=== PATIENT | female | born 1995 | race Caucasian/White ===

== ENCOUNTER 2020-06-17 13:40 | Emergency (ER) | payer SELFPAY ==
--- OUTSIDE RECORDS SUMMARY | 2020-06-17 13:43 | XMS REPORT | Clinical Summary ---
:1995 Author Organization [facility] Address [address] [place] [address] Care Team Providers Name Role Phone MD Anyi Primary Care Provider Allergies Active Allergy Reactions Severity Noted Date Comments Escitalopram Oxalate 12/10/2016 Medications Medication Sig Dispensed Refills Start Date End Date Status QUEtiapine Take 25 mg by 0 11/28/2016 Disc ontinued (SEROquel) 25 MG mouth 2 (two) 0 tablet times a day. sertraline (ZOLOFT) Take 100 mg by 0 11/28/2016 Discontinued 100 MG tablet mouth every 0 evening. ALPRAZolam (XANAX) 1 Take 1 mg by 0 11/16/201607/21 Discontinued MG tablet mouth 2 (two) 0 times a day as needed. SYMBICORT 160-4.5 Inhale 1 puff 0 12/05/2016 02 Discontinued mcg/actuation every morning. 0 inhaler PROAIR HFA 90 Inhale 2 puffs 0 10/24/2016 Discontinued mcg/actuation every 4 (four) 0 inhaler hours as needed. hydrOXYzine (ATARAX) Take 10 mg by 0 11/28/2016 Discontinued 10 MG tablet mouth every 0 morning. traZODone (DESYREL) Take 50 mg by 0 10/29/201607/21 Discontinued 50 MG tablet mouth every 0 evening. ondansetron ODT Take 1 tablet 20 tablet 0 07/22/2019 (ZOFRAN ODT) 8 MG (8 mg total) 0 disintegrating by mouth every tablet 8 (eight) hours as needed for nausea or vomiting for up to 7 days. Active Problems Problem Noted Date Cellulitis of hand 12/10/2016 Encounters Date Type Specialty Care Team Description 04/05/2020 - Emergency Emergency Medicine Steven Lake Suicidal ideation (Primary Dx); 04/08/2020 MD Silverio Methamphetamine abuse (HCC) 07/22/2019 Emergency Emergency Medicine Jorge A Cardenas Nausea an d vomiting, MD Nasir intractability of vomiting not sp ecified, unspecified vom iting type (Primary Dx) after 06/17/2019 Immunizations Name Administration Dates Next Due Tdap 12/10/2016 Surgical History Surgery Date Site/Laterality Comments RHINOPLASTY Medical History Medical History Date Comments Asthma Major depression Social History Tobacco Use Types Packs/Day Years Used Date Never Smoker Smokeless Tobacco: Never Used Tobacco Cessation: Ready to Quit: No; Co unseling Given: Yes Alcohol Use Drinks/Week oz/Week Comments Yes once a month Sex Assigned at Date Recorded Not on file Job Start Date Occupation Industry Not on file Not on file Not on file Last Filed Vital Signs Vital Sign Reading Time Taken Comments Blood Pressure 106/68 04/08/2020 1:28 PM [facility] Pulse 114 04/08/2020 1:28 PM [facility] Temperature 36 C (96.8 F) 04/08/2020 1:28 PM [facility] Respiratory Rate 20 04/08/2020 1:28 PM [facility] Oxygen Saturation 100% 04/08/2020 1:28 PM [facility] Inhaled Oxygen Concentration - - Weight 65.8 kg (145 lb) 07/22/2019 8:29 AM [facility] Height 172.7 cm (5' 8") 07/22/2019 8:29 AM [facility] Body Mass Index 22.05 07/22/2019 8:29 AM [facility] Plan of Treatment Health Maintenance Due Date Last Done Comments COVID-19 VACCINE (1 of 2) 2009 CERVICAL CANCER SCREENING 2014 INFLUENZA VACCINE 12/19/2019 Procedures Procedure Name Priority Date/Time Associated Comments Diagnosis COVID-19 QUALITATIVE STAT 04/05/2020 9:41 Res ults for this PCR PM [facility] procedure are i n the results section. URINE CULTURE STAT 04/05/2020 8:59 Results fo r this PM [facility] procedure are i n the results section. URINE DRUGS OF ABUSE STAT 04/05/2020 8:42 Res ults for this SCREEN PM [facility] procedure are i n the results section. HCG QUALITATIVE, URINE STAT 04/05/2020 8:42 R esults for this SCREEN PM [facility] procedure are i n the results section. URINALYSIS SCREEN AND STAT 04/05/2020 8:42 Re sults for this MICROSCOPY, WITH REFLEX PM [facility] proc edure are in TO CULTURE the results section. BILIRUBIN DIRECT STAT 04/05/2020 7:23 Results for this PM [facility] procedure are i n the results section. ESTIMATED GFR STAT 04/05/2020 7:23 Results fo r this PM [facility] procedure are i n the results section. SALICYLATE LEVEL STAT 04/05/2020 7:23 Results for this PM [facility] procedure are i n the results section. ACETAMINOPHEN LEVEL STAT 04/05/2020 7:23 Resu lts for this PM [facility] procedure are i n the results section. ALCOHOL LEVEL, BLOOD STAT 04/05/2020 7:23 Res ults for this PM [facility] procedure are i n the results section. T4, FREE STAT 04/05/2020 7:23 Results for this PM [facility] procedure are i n the results section. THYROID STIMULATING STAT 04/05/2020 7:23 Resu lts for this HORMONE PM [facility] procedure are i n the results section. CREATINE KINASE, TOTAL STAT 04/05/2020 7:23 R esults for this (CPK) PM [facility] procedure are i n the results section. COMPREHENSIVE METABOLIC STAT 04/05/2020 7:23 Results for this PANEL PM [facility] procedure are i n the results section. HC COMPLETE BLD COUNT STAT 04/05/2020 7:23 Re sults for this W/AUTO DIFF PM [facility] procedure are i n the results section. ECG ED PRELIMINARY Routine 04/05/2020 7:22 Resul ts for this INTERPRETATION PM [facility] procedure are in the results section. ECG 12-LEAD STAT 04/05/2020 7:12 Results for this PM [facility] procedure are i n the results section. ESTIMATED GFR STAT 07/22/2019 8:37 Results fo r this AM [facility] procedure are i n the results section. HCG QUALITATIVE, URINE STAT 07/22/2019 8:37 R esults for this SCREEN AM [facility] procedure are i n the results section. URINE DRUGS OF ABUSE STAT 07/22/2019 8:37 Res ults for this SCREEN AM [facility] procedure are i n the results section. URINALYSIS SCREEN AND STAT 07/22/2019 8:37 Re sults for this MICROSCOPY, WITH REFLEX AM [facility] proc edure are in TO CULTURE the results section. LIPASE LEVEL STAT 07/22/2019 8:37 Results for this AM [facility] procedure are i n the results section. COMPREHENSIVE METABOLIC STAT 07/22/2019 8:37 Results for this PANEL AM [facility] procedure are i n the results section. HC COMPLETE BLD COUNT STAT 07/22/2019 8:37 Re sults for this W/AUTO DIFF AM [facility] procedure are i n the results section. URINE CULTURE STAT 07/22/2019 8:37 Results fo r this AM [facility] procedure are i n the results section. after 06/17/2019 Results COVID-19 qualitative PCR (04/05/2020 9:41 PM [facility]) Interpretation Negative results do not prec lude 2019-nCoV infection and should not be used as the sole basis for treatment or other patient management decisions. Negative results must be combined with clinical observations, patient history, and epidemiological [facility] information. [facility] COVID-19 qualitative Not-Detected Not-Detecte [facility] PCR result d [facility] COVID-19 qualitative See link below for [facility] PCR PDF Lab [facility] ReportComment: Case HOSPITAL Number: [id number] Specimen Nasopharyngeal swab Performing Organization Address [facility] Phon e Number [facility] DEPARTMENT OF PATHOLOGY AND [address] [place] [address] [address] [facility] Urine culture (04/05/2020 8:59 PM [facility])Only the most recent of2 resultswithin the time period is included. [facility] Urine culture Mixed brunilda <=10-3 col/cc [facility] IST isolate Comment: HOSPITAL Specimen Information Specimen Source: Urine Specimen Site: Clean catch Specimen Urine Performing Organization Address [facility] Phon e Number [facility] DEPARTMENT OF PATHOLOGY AND [address] [place] [address] [address] Urinalysis screen and microscopy, with reflex to culture (04/05/2020 8:42 PM [facility])Only the most recent of2 resultswithin the time period is included. Specimen site Clean catch [facility] Color, UA Yellow [facility] Appearance, UA Clear [facility] Specific gravity, UA 1.029 1.001 - 1.035 [facility] pH, UA 6.0 5.0 - 8.5 [facility] Protein, UA 1+ (A) Negative [facility] Glucose, UA Negative Negative [facility] Ketones, UA 1+ (A) Negative [facility] Bilirubin, UA Negative Negative [facility] Blood, UA Small (A) Negative [facility] Nitrite, UA Negative Negative [facility] Urobilinogen, UA Negative <2.0 [facility] Leukocyte esterase, Large (A) Negative [facility] Epithelial cells, UA Many /HPF [facility] WBC, UA 26 (H) 0 - 5 /HPF [facility] RBC, UA 7 (H) 0 - 5 /HPF [facility] Bacteria, UA Trace None seen [facility] Yeast, UA None seen [facility] Yeast with None seen [facility] pseudohyphae, UA [facility] Specimen Urine Performing Organization Address City/State/ZIP Code Phon e Number [facility] [place] AND [address] [place] [address] [address] [phone] hCG qualitative, urine screen (04/05/2020 8:42 PM [facility])Only the most recent of2 resultswithin the time period is included. Pathologist [facility] hCG qualitative, Negative Negative [facility] urine Comment: [facility] The manufacturers stated sensitivity of HcG test for s kiara is >/= 10 mIU/ml and urine is >/= 20mIU/ml. Specimen Urine Performing Organization Address City/State/ZIP Code Phon e Number [facility] [place] AND [address] [place] [address] [address] Urine drugs of abuse screen (04/05/2020 8:42 PM [facility])Only the most recent of2 resultswithin the time period is included. Pathologist [facility] Amphetamine screen, Positive (A) [facility] urine [facility] Barbiturate screen, Negative [facility] urine [facility] Benzodiazepine Positive (A) [facility] screen, urine [facility] Cocaine screen, urine Negative [facility] Methadone metabolite Negative [facility] (EDDP), urine [facility] Opiates screen, urine Negative [facility] Oxycodone screen, Negative [facility] urine [facility] Phencyclidine screen, Negative [facility] urine [facility] Cannabinoid screen, Positive (A) [facility] urine Comment: [facility] Drug screen minimum concentration of detectability [facility] Amphetamines 1000 ng/mL HOSPITAL Barbiturates 200 ng/mL Benzodiazepines 300 ng/mL Cocaine 300 ng/mL Methadone 300 ng/mL Opiates 300 ng/mL Oxycodone 300 ng/mL Phencyclidine 25 ng/mL Cannabinoids 50 ng/mL Tricyclics 1000 ng/mL Results are from screening tests and should only be used for medical evaluation. Drug testing for legal purposes requires definitive (or confirmatory) testing methods, which are available upon request. Contact the laboratory if definitive testing is requir ed. Specimen Urine Performing Organization Address City/[facility] Phon e Number [facility] [place] AND [address] [place], [place] [address] GENOMIC MEDICINE [facility] [address] [place] [address] Estimated GFR (04/05/2020 7:23 PM [facility])Only the most recent of2 resultswithin the time period is included. Pathologist [facility] Estimated GFR >=90 mL/min/1.73 [facility] Comment: m2 [facility] Catergory Units Interpretation G1 >=90 Normal or high G2 60-89 Mildly decreased G3a 45-59 Mildly to moderately decreas ed G3b 30-44 Moderately to severely decre ased G4 15-29 Severely decreased G5 <15 Kidney failure The eGFR was calculated using the Chronic Kidney Disea se Epidemiology Collaboration (CKD-EPI) equation. Interpretation is based on recommendations of the National Kidney Foundation-Kidney Disease Outcomes [place] lity Initiative (NKF-KDOQI) published in 2014. Specimen Plasma Performing Organization Address City/[facility] Phon e Number [facility] [place] AND [address] [place] [address] GENOMIC MEDICINE [facility] [address] [place], [place] [address] CBC with platelet and differential (04/05/2020 7:23 PM [facility])Only the most recent of2 resultswithin the time period is included. Pathologist Sig nature WBC 7.8 4.2 - 11.0 k/uL [facility] RBC 4.65 4.04 - 5.86 [facility] m/uL [facility] HGB 13.7 11.5 - 15.3 [facility] g/dL [facility] HCT 41.7 34.0 - 45.0 % [facility] MCV 89.7 80.0 - 98.0 fL [facility] MCH 29.5 27.0 - 34.0 pg [facility] MCHC 32.9 31.5 - 36.5 [facility] g/dL [facility] RDW - SD 42.4 37.0 - 51.0 fL [facility] MPV 9.2 7.4 - 10.4 fL [facility] Platelet count 444 (H) 150 - 400 k/uL [facility] Nucleated RBC 0.00 /100 WBC [facility] Neutrophils 62.3 36.0 - 66.0 % [facility] Lymphocytes 27.4 24.0 - 44.0 % [facility] Monocytes 8.7 (H) 0.0 - 6.0 % [facility] Eosinophils 0.5 0.0 - 6.0 % [facility] Basophils 0.8 0.0 - 1.2 % [facility] Immature granulocytes 0.3 0.0 - 1.0 % [facility] Specimen Plasma Performing Organization Address City/State/ZIP Code Phon e Number [facility] DEPARTMENT OF PATHOLOGY AND [address] [facility] [place], [place] [address] [facility] MEDICINE [facility] [address] [place] [place] [address] Thyroid stimulating hormone (04/05/2020 7:23 PM [facility]) Pathologist Sig nature TSH 2.16 0.27 - 4.20 uIU/mL [facility] Specimen Plasma Performing Organization Address City/[facility] Phon e Number [facility] [place] AND [address] [facility] [place] [address] [facility] [address] [place], [place] [address] T4, free (04/05/2020 7:23 PM [facility]) Pathologist Sig nature T4, free 1.83 (H) 0.90 - 1.70 ng/dL [facility] Specimen Plasma Performing Organization Address City/[facility] Phon e [facility] [place]Y AND [address] [facility] [place] [address] [facility] [address] [place] [address]. [place], [place] [address] Creatine kinase, total (CPK) (04/05/2020 7:23 PM [facility]) Pathologist Sig nature Creatine kinase 72 26 - 192 U/L [facility] Specimen Plasma Performing Organization Address City/[facility] Phon e Number [facility] [place]OLOGY AND [address] [facility] [place] [address] [facility] [address] [facility] [place] [address] Bilirubin direct (04/05/2020 7:23 PM [facility]) Pathologist Sig nature Bilirubin direct 0.3 0.0 - 0.4 mg/dL [facility] Specimen Plasma Performing Organization Address City/[facility] Phon e Number [facility] [place]Y AND [address] [facility] [place] [address] [facility] [address] [facility] [place], [place] [address] Alcohol level, blood (04/05/2020 7:23 PM [facility]) Alcohol None Detected mg/dL [facility] Comment: [facility] Normal None Detecte d Legal Intoxication in [place] 80 mg/dL (0.08%) Toxic Concentration 200 mg/dL (0.2%) Potentially Fatal 350-500 mg/dL (0.3 5%-0.5%) Alcohol percent None Detected % [facility] Specimen Blood Performing Organization Address City/[facility] Phon e Number [facility] [place]PARTMENT OF [place]OLOGY AND [address] [place] [address] [facility] MEDICINE [facility] [address] [facility] [address] [place], [place] [address] Acetaminophen level (04/05/2020 7:23 PM [facility]) Acetaminophen level <15.3 10.0 - 30.0 [facility] Comment: ug/mL [facility] Therapeutic 1 0-30 ug/mL [facility] Possible Toxicity 150- 200 ug/mL Probable Toxicity >200 ug/mL Specimen Blood Performing Organization Address City/[facility] Phon e Number [facility] [place] AND [address] [place] [address] [facility] [address] [facility] [place] [address] Salicylate level (04/05/2020 7:23 PM [facility]) Pathologist Sig nature Salicylate <0.4 (L) 3.0 - 30.0 [facility] Comment: mg/dL [facility] Therapeutic Range: 5 - 30 mg/dL Specimen Blood Performing Organization Address City/[facility] Phon e Number [facility] [place] AND [address] [facility] [address] [place] [address] [facility] MED[facility] [address] [facility] [place], [place] [address] Comprehensive metabolic panel (04/05/2020 7:23 PM [facility])Only the most recent of2 resultswithin the time period is included. Pathologist Sig nature Sodium 139 135 - 150 mEq/L [facility] Potassium 3.7 3.5 - 5.0 mEq/L [facility] Chloride 103 98 - 112 mEq/L [facility] CO2 24 24 - 31 mmol/L [facility] Anion gap 12@ANIO 7 - 15 mEq/L [facility] BUN 15 7 - 18 mg/dL [facility] Creatinine 0.80 0.50 - 0.90 [facility] mg/dL [facility] Glucose 97 65 - 100 mg/dL [facility] Calcium 10.0 8.3 - 10.2 mg/dL [facility] Protein 8.1 6.3 - 8.3 g/dL [facility] Albumin 4.3 3.5 - 5.0 g/dL [facility] A/G ratio 1.1 0.7 - 3.8 [facility] Alkaline phosphatase 69 0 - 104 U/L [facility] AST 19 10 - 35 U/L [facility] ALT 35 5 - 50 U/L [facility] Total bilirubin 1.5 (H) 0.2 - 1.2 mg/dL [facility] Specimen Plasma Performing Organization Address City/State/ZIP Code Phon e Number [facility] AND [address] [place], [place] [address] GENOMIC MEDICINE [facility] [address] [place], [place] [address] ECG ED Preliminary Interpretation - Not an Order (04/05/2020 7:22 PM [facility]) Narrative Performed At Steven Lake MD 04/07/2020 5:03 PM ECG ED Preliminary Interpretation - Not an Order Performed by: Steven Lake MD Authorized by: Stevne Lake MD ECG reviewed by ED Physician in the abse nce of a booking clerk: yes Interpretation: Interpretation: normal Rate: ECG rate: 91 ECG rate assessment: normal Rhythm: Rhythm: sinus rhythm Ectopy: Ectopy: none QRS: QRS axis: Normal QRS intervals: Normal Conduction: Conduction: normal ST segments: ST segments: Normal T waves: T waves: normal ECG 12 lead (04/05/2020 7:12 PM [facility]) Pathologist Sig nature Ventricular rate 91 [facility] Atrial rate 91 [facility] OH interval 132 [facility] QRSD interval 86 [facility] QT interval 380 [facility] QTC interval 467 [facility] P axis 1 23 [facility] QRS axis 1 48 [facility] T wave axis 40 [facility] EKG impression Normal sinus [facility] rhythm-Normal ECG-No previous ECGs available-Electronicall y Signed By Roberto Tapia MD ([id number]) on 04/08/2020 12:03:00 PM Specimen Narrative Performed At This result has an attachment that is no t available. Performing Organization Address City/[facility]/ZIP Code Phon e Number [facility] [address]USE [address] [place] [address] Lipase level (07/22/2019 8:37 AM SP[facility]) Pathologist Sig nature Lipase 76 (H) 13 - 60 U/L [facility] Specimen Plasma specimen Performing Organization Address City/[facility] Phon e Number [facility] DEPARTMENT OF PATHOLOGY AND [address] [place] [address] GENOMIC MEDICINE [facility] [address] [place], [place] [address] HOSPITAL after 06/17/2019 Advance Directives For more information, please contact: [phone] Type Date Recorded Patient Sas Programmer Explanati on Advance Directives, Living 12/10/2016 11:22 AM Will and Medical Power of Drill Operator Advance Directives, Living 04/05/2020 7:17 PM Will and Medical Power of Drill Operator
--- OUTSIDE RECORDS SUMMARY | 2020-06-17 13:44 | XMS REPORT | Continuity of Care Document ---
:1995 Author Organization [facility] t Address [address] [place] [address] Care Team Providers Name Role Phone Anyi HITCHCOCK, Marichuy Primary Care Physician Jaya HITCHCOCK, Steven Sawyer Attending Clinician Nasir Cardenas MD Attending Clinician Payers Payer Name Policy Type Policy Number Effective Date Expiration Date S ource Problems Condition Condition Condition Status Onset Resolution Last Treating Co mments Source Name Details Category Date Date Treatment Clinician Date Cellulitis Cellulitis Disease Active [place] [facility] hand of hand 12-10 Methodi 00:00: st 00 Allergies, Adverse Reactions, Alerts Allergy Allergy Status Severity Reaction(s) Onset Inactive Treating Comm ents Source Name Type Date Date Clinician escitalo DA Active [place] [facility] pram 5-13 Clear 00:00: Jurado 00 [facility] Escitalo Propensi Active [place] pram ty to 12-10 Methodi Oxalate adverse 00:00: st reaction 00 s to drug Social History Social Habit Start Date Stop Date Quantity Comments Source Sex Assigned At [facility] ethodist Tobacco use and 2020-04-06 2020-04-06 Never used Douglas Cooper ethodist exposure 00:00:00 00:00:00 Alcohol intake 2020-04-06 2020-04-06 Current drinker Radha on [facility] 00:00:00 00:00:00 of alcohol (finding) Alcohol Comment 2016-12-10 2016-12-10 once a month Cole [facility] 00:00:00 00:00:00 Smoking Status Start Date Stop Date Source Never smoker Douglas Triplettis chiki Medications Ordered Filled Start Stop Current Ordering Indication Dosage Frequency Signature Comments Components Source Medication Medication Date Date Medication? Clinician (SIG) Name Name ondansetron 2020- No 8mg Q8H Take 1 Ita ston ODT (ZOFRAN 3-07-28 tablet (8 Me thodi ODT) 8 MG 00:00: 23:59 mg total) st disintegrat 00 :00 by mouth ing tablet every 8 (eight) hours as needed for nausea or vomiting for up to 7 days. SYMBICORT 2019- No 1{puff} QD Inhale 1 Cole 160-4.5 12-05 puff every Metho di mcg/actuati 00:00: 00:00 morning. s t on inhaler 00 :00 QUEtiapine 2019- No 25mg Q.5D Take 25 mg Cole (SEROquel) 11-28 by mouth 2 Me thodi 25 MG 00:00: 00:00 (two) st tablet 00 :00 times a day. sertraline 2020- No 100mg QD Take 100 H ouranjeet (ZOLOFT) 11-28-04 mg by Methodi 100 MG 00:00: 00:[address] tablet 00 :00 every evening. hydrOXYzine 2020- No 10mg QD Take 10 mg Cole (ATARAX) 10 11-28- by mouth Met hodi MG tablet 00:00: 00:[address] 00 :00 morning. ALPRAZolam 2020- No 1mg Q.5D Take 1 mg [place] (XANAX) 1 11-16-04 by mouth 2 Met hodi MG tablet 00:00: 00:00 (two) st 00 :00 times a day as needed. traZODone 2020- No 50mg QD Take 50 mg H ouranjeet (DESYREL) 10-29 by mouth Metho di 50 MG 00:00: 00:[address] tablet 00 :00 evening. PROAIR HFA 2019- No 2{puff} Q4H Inhale 2 [place] [address] 10-24 puffs Methodi mcg/actuati 00:00: 00:[address] on inhaler 00 :00 (four) hours as needed. Immunizations Ordered Immunization Filled Immunization Date Status Commen ts Source Name Name Tdap 2016-12-10 Completed [place] 00:00:00 [facility] Vital Signs Vital Name Observation Time Observation Value Comments Source Systolic blood 2020-04-08 13:28:55 106 mm[Hg] Noemy Hurd pressure Diastolic blood 2020-04-08 13:28:55 68 mm[Hg] Radha damon [facility] pressure Heart rate 2020-04-08 13:28:55 114 /min [facility] Body temperature 2020-04-08 13:28:55 36 Haylie Tayla Hurd Respiratory rate 2020-04-08 13:28:55 20 /min Tayla Hurd Oxygen saturation in 2020-04-08 13:28:55 100 /min Douglas Hurd Arterial blood by Pulse oximetry Body height 2019-07-22 08:29:00 172.7 cm Cole [facility] Body weight 2019-07-22 08:29:00 65.772 kg Douglas Hurd BMI 2019-07-22 08:29:00 22.05 kg/m2 Douglas Hurd Procedures Procedure Date / Time Performing Clinician Source Performed COVID-19 QUALITATIVE PCR 2020-04-05 21:41:00 Steven Lake [facility] URINE CULTURE 2020-04-05 20:59:00 [facility] URINALYSIS SCREEN AND 2020-04-05 20:42:00 Steven Lake [facility] MICROSCOPY, WITH REFLEX TO CULTURE HCG QUALITATIVE, URINE 2020-04-05 20:42:00 Steven Lake [facility] SCREEN URINE DRUGS OF ABUSE 2020-04-05 20:42:00 Steven Lake [facility] SCREEN HC COMPLETE BLD COUNT 2020-04-05 19:23:00 Steven Lake [facility] W/AUTO DIFF COMPREHENSIVE METABOLIC 2020-04-05 19:23:00 Steven Lake [facility] PANEL CREATINE KINASE, TOTAL 2020-04-05 19:23:00 Steven Lake (CPK) THYROID STIMULATING 2020-04-05 19:23:00 Steven Lake HORMONE T4, FREE 2020-04-05 19:23:00 Steven Lake Met [facility]odist ACETAMINOPHEN LEVEL 2020-04-05 19:23:00 Steven Lakeist SALICYLATE LEVEL 2020-04-05 19:23:00 Steven Lake Me [facility]odist ESTIMATED GFR 2020-04-05 19:23:00 Steven Lake [facility] BILIRUBIN DIRECT 2020-04-05 19:23:00 Steven Lake [facility] ECG ED PRELIMINARY 2020-04-05 19:22:32 Steven Lake [facility] INTERPRETATION ECG 12-LEAD 2020-04-05 19:12:10 Steven Lake Met [facility]odist URINE CULTURE 2019-07-22 08:37:00 Minesh Cardenas Meth odist Nasir HC COMPLETE BLD COUNT 2019-07-22 08:37:00 Minesh Cardenas [facility] W/AUTO DIFF Nasir COMPREHENSIVE METABOLIC 2019-07-22 08:37:00 Minesh Cardenas [facility] PANEL Nasir LIPASE LEVEL 2019-07-22 08:37:00 Minesh Cardenas odist Nasir URINALYSIS SCREEN AND 2019-07-22 08:37:00 Minesh Cardenas [facility] MICROSCOPY, WITH REFLEX TO Nasir CULTURE URINE DRUGS OF ABUSE 2019-07-22 08:37:00 Minesh Cardenasist SCREEN Nasir HCG QUALITATIVE, URINE 2019-07-22 08:37:00 Minesh Cardenas on [facility] SCREEN Nasir ESTIMATED GFR 2019-07-22 08:37:00 Minesh Cardenas Meth odist Nasir Plan of Care Planned Activity Planned Date Details Comments Source Future Scheduled 2019-12-19 INFLUENZA VACCINE Noemy chao [facility] Test 00:00:00 [code = INFLUENZA VACCINE] Future Scheduled 2014 Screening for [place] [facility] Test 00:00:00 malignant neoplasm of cervix (procedure) [code = 333292567] Future Scheduled 2009 COVID-19 VACCINE (1 [place] [facility] Test 00:00:00 of 2) [code = COVID-19 VACCINE (1 of 2)] Encounters Start End Encounter Admission Attending Care Care Encounter Source Date/Time Date/Time Type Type Clinicians Facility Department ID 2020-04-08 2020-04-12 Outpatient HCPCDOCS HCPCDOCS [id number] 14:49:00 13:29:00 18 2020-04-05 2020-04-08 Emergency JAYA, [facility] 064 [id number] [place] 00:00:00 00:00:00 STEVEN [address] 2020-01-25 2020-01-25 Emergency E MHSE MHSE [id number] 12:23:00 12:23:[address] [facility] 2019-07-22 2019-07-22 Emergency CALIN, [facility] 064 [id number] [place] 00:00:00 00:00:00 MINESH [address] 2018-10-01 2018-10-01 Emergency E MHSE MHSE 7509 17:19:00 17:19:[address] [facility] Results Test Description Test Time Test Comments Results Result Comments Source ECG 12 lead 2020-04-08 12:03:03 Test Item Value Reference Range Interpretation Comme nts Ventricular rate (test code = 253) 91 Atrial rate (test code = 255) 91 PA interval (test code = 266) 132 QRSD interval (test code = 260) 86 QT interval (test code = 264) 380 QTC interval (test code = 265) 467 P axis 1 (test code = 267) 23 QRS axis 1 (test code = 268) 48 T wave axis (test code = 270) 40 EKG impression (test code = 273) Normal sinus rhythm-Normal ECG-No previous ECGs available- Douglas HurdUrine [id number] 03:52:31 Test Item Value Reference Range Interpretation Comments Urine culture Mixed brunilda Specimen isolate (test <=10-3 col/cc InformationSp ecimen code = 60807-7) Source: Urin eSpecimen Site: Clean cat ch [place] [facility] qualitative [id number] 02:22:22 Test Item Value Reference Range Interpretation Comments Interpretation (test Negative results do code = 5979654) not preclude 2019-nCoV infection and should not be used as the sole basis for treatment or other patient management decisions. Negative results must be combined with clinical observations, patient history, and epidemiological information. COVID-19 qualitative Not-Detected Not-Detected PCR result (test code = 44769-2) COVID-19 qualitative See link below for C ase Number: PCR (test code = PDF Lab Report [id number]) [place] MethodistUrine drugs of abuse [id number] 01:15:05 Test Item Value Reference Interpretation Comments Range Amphetamine screen, Positive A urine (test code = 3349-8) Barbiturate screen, Negative urine (test code = 3377-9) Benzodiazepine Positive A screen, urine (test code = 3390-2) Cocaine screen, Negative urine (test code = 3397-7) Methadone Negative metabolite (EDDP), urine (test code = 60703-5) Opiates screen, Negative urine (test code = 3879-4) Oxycodone screen, Negative urine (test code = 95814-8) Phencyclidine Negative screen, urine (test code = 3936-2) Cannabinoid screen, Positive A Drug scr een minimum urine (test code = concentra tion of 3427-2) detectabilityAm phetamines 1000 ng/mLBarbiturat es 200 ng/mLBe nzodiazepines 300 ng/mLCocaine 300 ng/mLMethadone 300 ng/mLOp iates 300 ng/mLOxycodone 300 ng/mLPh encyclidine 25 ng/mLCannabinoi ds 50 ng/mLTr icyclics 1000 ng/mLResults are from screen ing tests and should only be used for medical evaluat ion. Drug testing for leg al purposes requires defini tive (or confirmatory) t esting methods, which are available upon request. C ontact the laboratory if d efinitive testing is requ ired. Lab Interpretation Abnormal (test code = 44359-9) [place] MethodistUrinalysis screen and microscopy, with reflex to culture 2020-04-05 21:09:52 Test Item Value Reference Range Interpretation Comments Specimen site (test code = Clean catch 4486354) Color, UA (test code = 5778-6) Yellow Appearance, UA (test code = Clear 5767-9) Specific gravity, UA (test code = 1.029 1.001-1.035 5811-5) pH, UA (test code = 5803-2) 6.0 5.0-8.5 Protein, UA (test code = 13130-4) 1+ Negative A Glucose, UA (test code = 00368-5) Negative Negative Ketones, UA (test code = 2514-8) 1+ Negative A Bilirubin, UA (test code = Negative Negative 5770-3) Blood, UA (test code = 5794-3) Small Negative A Nitrite, UA (test code = 5802-4) Negative Negative Urobilinogen, UA (test code = Negative <2.0 30562-3) Leukocyte esterase, UA (test code Large Negative A = 5799-2) Epithelial cells, UA (test code = Many /HPF 5787-7) WBC, UA (test code = 5821-4) 26 0- 5 /HPF H RBC, UA (test code = 95397-5) 7 0- 5 /HPF H Bacteria, UA (test code = Trace None seen 23894-9) Yeast, UA (test code = 72625-3) None seen Yeast with pseudohyphae, UA (test None seen code = 54695-8) Lab Interpretation (test code = Abnormal 88013-2) Douglas TriplettisthCG qualitative, urine [id number] 20:50:06 Test Item Value Reference Range Interpretation Comments hCG qualitative, Negative Negative [facility] manuel stated urine (test code = sensitivi ty of HcG test 2105-07) for serum is >/ = 10 mIU/ml and urine is >/ = 20mIU/ml. [facility] MethodistThyroid stimulating [id number] 20:09:17 Test Item Value Reference Range Interpretation Comments TSH (test code = 3016-3) 2.16 0.27- 4.20 uIU/mL Douglas TriplettistT4, [id number] 20:09:16 Test Item Value Reference Range Interpretation Comments T4, free (test code = 3024-7) 1.83 ng/dL 0.9-1.7 H Lab Interpretation (test code = Abnormal 51597-6) [place] MethodistComprehensive metabolic [id number] 19:57:55 Test Item Value Reference Range Interpretation Comments Sodium (test code = 2951-2) 139 135- 150 mEq/L Potassium (test code = 2823-3) 3.7 3.5- 5.0 mEq/L Chloride (test code = 2075-0) 103 98- 112 mEq/L CO2 (test code = 2027-9) 24 mmol/L 24-31 Anion gap (test code = 18255-9) 12@ANIO 7- 15 mEq/L BUN (test code = 3094-0) 15 mg/dL 7-18 Creatinine (test code = 2160-0) 0.80 mg/dL 0.5-0.9 Glucose (test code = 2345-7) 97 mg/dL 65-100 Calcium (test code = 85286-8) 10.0 mg/dL 8.3-10.2 Protein (test code = 2885-2) 8.1 g/dL 6.3-8.3 Albumin (test code = 1751-7) 4.3 g/dL 3.5-5 A/G ratio (test code = 1759-0) 1.1 0.7-3.8 Alkaline phosphatase (test code = 69 U/L 0-104 6768-6) AST (test code = 1920-8) 19 U/L 10-35 ALT (test code = 1742-6) 35 U/L 5-50 Total bilirubin (test code = 1.5 mg/dL 0.2-1.2 H 1974-06) Lab Interpretation (test code = Abnormal 67960-0) [place] MethodistCreatine kinase, total (CPK)2020-04-05 19:57:54 Test Item Value Reference Range Interpretation Comments Creatine kinase (test code = 2157-6) 72 U/L 26-192 [place] MethodistBilirubin [id number] 19:57:53 Test Item Value Reference Range Interpretation Comments Bilirubin direct (test code = 0.3 mg/dL 0-0.4 1967-11) [place] MethodistEstimated [id number] 19:57:53 Test Item Value Reference Range Interpretation Comments Estimated GFR (test >=90 mL/min/1.73 m2 Caterg ory Units code = 5488) InterpretationG 1 >=90 Normal or highG2 60-89 Mildly kekjgxaaeF8g 45-59 Mildly to mode rately outwprzkfX2u 30-44 Moderately to severely decreasedG4 15-29 Severely decre asedG5 <15 Kidn ey failureThe eGFR was calculated rudy lizama the Chronic Kidney Disease Epidemiology Co llaboration (CKD-EPI) equat ion. Interpretation is based on recommendations of the National Kidney Foundation-Kidn ey Disease Outcomes Qualit y Initiative (NKF-KDOQI) pub lished in 2014. [place] MethodistSalicylate [id number] 19:56:47 Test Item Value Reference Range Interpretation Comments Salicylate (test code = <0.4 3-30 L Ther apeutic Range: 5 4024-6) - 30 mg/dL Lab Interpretation (test Abnormal code = 36258-1) [place] MethodistAcetaminophen [id number] 19:56:47 Test Item Value Reference Range Interpretation Comments Acetaminophen level (test <15.3 03-18 erapeutic code = 3298-7) 10-30 ug/mL Possible Toxicity 150-200 ug/ mL Proba ble Toxicity >2 00 ug/mL [place] MethodistAlcohol level, [id number] 19:51:59 Test Item Value Reference Range Interpretation Comments Alcohol percent None Detected % Normal (test code = None 5643-2) DetectedLegal Intoxication in [place] 80 mg/dL (0.08% )Toxic Concentration 200 mg/dL (0.2%)Potential ly Fatal 350 -500 mg/dL (0.35%-0. 5%) [place] MethodistCBC with platelet and [id number] 19:40:39 Test Item Value Reference Range Interpretation Comments WBC (test code = 93483-9) 7.8 4.2- 11.0 k/uL RBC (test code = 10898-3) 4.65 m/uL 4.04-5.86 HGB (test code = 718-7) 13.7 g/dL 11.5-15.3 HCT (test code = 4544-3) 41.7 % 34-45 MCV (test code = 787-2) 89.7 fL 80-98 MCH (test code = 785-6) 29.5 pg 27-34 MCHC (test code = 786-4) 32.9 g/dL 31.5-36.5 RDW - SD (test code = 50556-4) 42.4 fL 37-51 MPV (test code = 52163-2) 9.2 fL 7.4-10.4 Platelet count (test code = 444 150- 400 k/uL H 64352-6) Nucleated RBC (test code = 30136-1) 0.00 /100 WBC Neutrophils (test code = 59975-8) 62.3 % 36-66 Lymphocytes (test code = 39635-4) 27.4 % 24-44 Monocytes (test code = 78067-1) 8.7 % 0-6 H Eosinophils (test code = 42299-4) 0.5 % 0-6 Basophils (test code = 13306-7) 0.8 % 0-1.2 Immature granulocytes (test code = 0.3 % 0-1 31632-2) Lab Interpretation (test code = Abnormal 64037-7) [facility] Preliminary Interpretation - Not an [id number] 19:22:32Steven Lake MD 04/07/2020 5:03 [facility] ED Preliminary Interpretation - Not an OrderPerformed by: Steven Lake MDAuthorized by: Steven Lake MD ECG reviewed by ED Physician in the absence of a hydroblaster: yes Interpretation: Interpretation: normal Rate: ECG rate: 91 ECG rate assessment: normal Rhythm: Rhythm: sinus rhythm Ectopy: Ectopy: none QRS: QRS axis: Normal QRS intervals: NormalConduction: Conduction: normal ST segments: ST segments: NormalT waves: T waves: normalHouston MethodistLipase [id number] 08:59:55 Test Item Value Reference Range Interpretation Comments Lipase (test code = 3040-3) 76 U/L 13-60 H Lab Interpretation (test code = Abnormal 71427-7) [place] MethodistDRUGS OF ABUSE SCREEN [id number] 12:16:00 Test Item Value Reference Range Interpretation Comments URN COCAINE (test code NEGATIVE NEGATIVE = COCAURN) URN CANNABINOIDS (test POSITIVE NEGATIVE A code = CANNABURN) URN AMPHETAMINE (test NEGATIVE NEGATIVE code = AMPHETURN) URN BARBITURATE (test NEGATIVE NEGATIVE code = BARBITURN) URN BENZODIAZEPINE POSITIVE NEGATIVE A Cut-off v alue:200 (test code = BENZOURN) ng/mL URN OPIATES (test code NEGATIVE NEGATIVE Cut-o ff value:2000 = OPIATURN) ng/mL URN PHENCYCLIDINE (PCP) NEGATIVE NEGATIVE Cuto ffs:Barbiturates (test code = PHENCURN) 200 ng/mLBenzodiaze pines 200 ng/ mLTHC Cannabinoids 50 ng/mLOpiates(Mo rphine) 2000 ng/mLAmphetamin e 1000 ng/mLCocaine 300 ng/ mLPCP phencyclidine 25 ng/mL Unconf irmed screening resul ts shouldnot be us ed for non-medical pur poses. HEPATIC FUNCTION [id number] 12:08:00 Test Item Value Reference Range Interpretation Comments TOTAL PROTEIN (test code = PROT) 8.0 g/dL 6.4-8.2 N ALBUMIN (test code = ALB) 4.30 g/dL 3.4-5.0 N BILIRUBIN TOTAL (test code = BILT) 0.80 mg/dL 0.0-1.0 N BILIRUBIN DIRECT (test code = 0.20 MG/DL 0.0-0.30 N BILD) BILIRUBIN INDIRECT (test code = 0.60 MG/DL BILIND) SGOT/AST (test code = AST) 12 IUnit/L 15-37 L SGPT/ALT (test code = ALT) 20 IUnit/L 15-65 N ALKALINE PHOSPHATASE TOTAL (test 51 IUnit/L 20-125 N code = ALKP) CREATINE KINASE (CK)2018-12-05 12:08:00 Test Item Value Reference Range Interpretation Comments CREATINE KINASE (CK) 92 35-232 N Result is in INTERNATIONAL (test code = CK) UNITS/LITER HCG SERUM [id number] 12:08:00 Test Item Value Reference Range Interpretation Comments HCG SERUM QUAL (test code = SERUM NEGATIVE NEGATIVE HCGQL) THYROID STIMULATING [id number] 12:08:00 Test Item Value Reference Range Interpretation Comments THYROID STIMULATING 5.09 0.42-5.47 N Results in HORMONE (test code = TSH) mi lli-International Units/mL [id number] 12:08:00 Test Item Value Reference Range Interpretation Comments ACETAMINOPHEN (test code = ACET) < 2 ug/mL 10-30 L [id number] 12:08:00 Test Item Value Reference Range Interpretation Comments SALICYLATE (test code = JANETH) < 1.7 mg/dL 2.8-20.0 L [id number] 12:08:00 Test Item Value Reference Range Interpretation Comments ALCOHOL (test code < 0.003 G/dL <0.003 Ethyl Alc ohol = ALC) Interpretation: 0.100 gm/dL - Legally Intoxic ated 0.300-0.40 0 gm/dL - Severely Into xicated >0.400 gm/dL - Potentially LethalResults a re for Medical purpose s only, and not for Leg al orEmployment ev aluation purposes. DRUGS OF ABUSE SCREEN [id number] 12:06:00 Test Item Value Reference Range Interpretation Comments URN COCAINE (test code NEGATIVE NEGATIVE = COCAURN) URN CANNABINOIDS (test NEGATIVE code = CANNABURN) URN AMPHETAMINE (test NEGATIVE NEGATIVE code = AMPHETURN) URN BARBITURATE (test NEGATIVE NEGATIVE code = BARBITURN) URN BENZODIAZEPINE NEGATIVE (test code = BENZOURN) URN OPIATES (test code NEGATIVE NEGATIVE Cut-o ff value:2000 = OPIATURN) ng/mL URN PHENCYCLIDINE (PCP) NEGATIVE NEGATIVE Cuto ffs:Barbiturates (test code = PHENCURN) 200 ng/mLBenzodiaze pines 200 ng/ mLTHC Cannabinoids 50 ng/mLOpiates(Mo rphine) 2000 ng/mLAmphetamin e 1000 ng/mLCocaine 300 ng/ mLPCP phencyclidine 25 ng/mL Unconf irmed screening resul ts shouldnot be us ed for non-medical pur poses. CBC W/O [id number] 11:59:00 Test Item Value Reference Range Interpretation Comments WHITE BLOOD CELL (test code = 6.78 x10 3/uL 4.5-11.0 N WBC) RED BLOOD CELL (test code = 4.61 x10 6/uL 3.54-5.02 N RBC) HEMOGLOBIN (test code = HGB) 13.1 g/dL 11.0-15.0 N HEMATOCRIT (test code = HCT) 39.8 % 33.0-45.0 N MEAN CELL VOLUME (test code = 86.3 fL 81.0-99.0 N MCV) MEAN CELL HGB (test code = MCH) 28.4 pg 27.0-33.0 N MEAN CELL HGB CONCETRATION 32.9 g/dL 33.0-37.0 L (test code = MCHC) RED CELL DISTRIBUTION WIDTH CV 13.7 % 11.5-14.5 N (test code = RDW) RED CELL DISTRIBUTION WIDTH SD 43.4 fL 37.0-54.0 N (test code = RDW-SD) PLATELET COUNT (test code = 401 x10 3/uL 150-400 H PLT) MEAN PLATELET VOLUME (test code 9.9 fL 7.0-9.0 H = MPV) URINALYSIS [id number] 11:57:00 Test Item Value Reference Range Interpretation Comments UA COLOR (test code = COLU) YELLOW YEL/STRAW UA APPEARANCE (test code = TURBID CLEAR A APPU) UA GLUCOSE DIPSTICK (test code NEGATIVE NEGATIVE = DGLUU) UA BILIRUBIN DIPSTICK (test NEGATIVE NEGATIVE code = BILU) UA KETONE DIPSTICK (test code TRACE NEGATIVE A = KETU) UA SPECIFIC GRAVITY (test code 1.015 1.005-1.030 N = SGU) UA BLOOD DIPSTICK (test code = NEGATIVE NEGATIVE HUGO) UA PH DIPSTICK (test code = 9.0 5.0-7.0 H YEHUDA) UA PROTEIN DIPSTICK (test code 1+ NEGATIVE A = PROU) UA UROBILINIOGEN DIPSTICK 2.0 mg/dL 0.2-1.0 A (test code = URO) UA NITRITE DIPSTICK (test code POSITIVE NEGATIVE A = KEESHA) UA LEUKOCYTE ESTERASE DIPSTICK 2+ NEGATIVE A (test code = LEUU) UA WBC (test code = WBCU) 4-9 WBC/HPF 0-3 A UA RBC (test code = RBCU) 4-10 RBC/HPF 0-3 UA BACTERIA (test code = BACU) 3+ /HPF NONE SEEN A UA SQUAMOUS CELLS (test code = NONE SEEN /HPF NONE SEEN SQU) UA MUCUS (test code = MUCU) 2+ /LPF NONE SEEN A UA YEAST (BUDDING) (test code 4+ /HPF NONE = YEASTUBD) HEPATIC FUNCTION [id number] 11:50:00 Test Item Value Reference Range Interpretation Comments TOTAL PROTEIN (test code = PROT) g/dL 6.4-8.2 ALBUMIN (test code = ALB) g/dL 3.4-5.0 BILIRUBIN TOTAL (test code = BILT) mg/dL 0.0-1.0 BILIRUBIN DIRECT (test code = BILD) MG/DL 0.0-0.30 SGOT/AST (test code = AST) IUnit/L 15-37 SGPT/ALT (test code = ALT) IUnit/L 15-65 ALKALINE PHOSPHATASE TOTAL (test IUnit/L 20-125 code = ALKP) CREATINE KINASE (CK)2018-12-05 11:50:00 Test Item Value Reference Range Interpretation Comments CREATINE KINASE (CK) (test code = CK) 35-232 HCG SERUM [id number] 11:50:00 Test Item Value Reference Range Interpretation Comments HCG SERUM QUAL (test code = SERUM NEGATIVE NEGATIVE HCGQL) THYROID STIMULATING [id number] 11:50:00 Test Item Value Reference Range Interpretation Comments THYROID STIMULATING HORMONE (test code 0.42-5.47 = TSH) [id number] 11:50:00 Test Item Value Reference Range Interpretation Comments ACETAMINOPHEN (test code = ACET) ug/mL 10-30 [id number] 11:50:00 Test Item Value Reference Range Interpretation Comments SALICYLATE (test code = JANETH) mg/dL 2.8-20.0 [id number] 11:50:00 Test Item Value Reference Range Interpretation Comments ALCOHOL (test code = ALC) G/dL <0.003 CHEMISTRY 8 [id number] 11:32:00 Test Item Value Reference Range Interpretation Comments ISTAT-SODIUM (test code = NAP) MMOL/L 134-147 ISTAT-POTASSIUM (test code = KP) MMOL/L 3.4-5.0 ISTAT-CHLORIDE (test code = CLP) MMOL/L 100-108 ISTAT CARBON DIOXIDE (test code = mmol/L 21-33 N ISTAT-CO2) ISTAT CALCIUM IONIZED (test code = MG/DL 1.12-1.32 ISTAT-[place]) ISTAT-GLUCOSE (test code = GLUP) MG/DL 70-110 N ISTAT-BUN (test code = BUNP) MG/DL 7-18 N BEDSIDE CREATININE (test code = MG/DL 0.6-1.3 N CREATBED) GLOMERULAR FILTRATION RATE POC 108 ML/MIN (test code = GFRBED) CHEMISTRY 8 [id number] 11:32:00 Test Item Value Reference Range Interpretation Comments ISTAT-SODIUM (test 142 MMOL/L 134-147 N code = NAP) ISTAT-POTASSIUM (test 3.1 MMOL/L 3.4-5.0 L code = KP) ISTAT-CHLORIDE (test 105 MMOL/L 100-108 N Perform ed by code = CLP) certified opera tor at [facility] ISTAT CARBON DIOXIDE 22.0 mmol/L 21-33 N (test code = ISTAT-CO2) ISTAT CALCIUM IONIZED 1.24 MG/DL 1.12-1.32 N (test code = ISTAT-[place]) ISTAT-GLUCOSE (test 99 MG/DL 70-110 N code = GLUP) ISTAT-BUN (test code = 7 MG/DL 7-18 N BUNP) BEDSIDE CREATININE 0.7 MG/DL 0.6-1.3 N (test code = CREATBED) GLOMERULAR FILTRATION 108 ML/MIN RATE POC (test code = GFRBED)
[2020-06-17 18:58] LABS: Absolute Lymphocytes (CBC) 2.9 K/uL (0.7-4.9); Basophils % 1.3 % (0-1.3); Lymphocytes % 39.1 % (15.3-44.8); MPV 8.3 fL (7.6-11.3); RBC Red Blood Cell Count 4.33 M/uL (3.86-4.86)
[2020-06-17 19:04] LABS: Protime INR 1.05
[2020-06-17 19:08] LABS: BUN Blood Urea Nitrogen 7 mg/dL (7-18); Bicarbonate 31 mmol/L (21-32); Glucose Level 90 mg/dL (74-106); Sodium Level 140 mmol/L (136-145)
[2020-06-17] MEDS ORDERED: KETOROLAC 30 MG/ML INJ ONE (19:11)
--- NOTE | 2020-06-17 19:33 | RAD REPORT ---
EXAM DESCRIPTION: CT - CTFBWCON CLINICAL HISTORY: SWELLING COMPARISON: No comparisons TECHNIQUE: Axial 2 mm thick images of the face were obtained with sagittal and coronal reconstructio n images. All CT scans are performed using dose optimization technique as appropriate and may include automated exposure control or mA/KV adjustment according to patient size. FINDINGS: A prominent dental osmin is seen involving the left posterior third molar. There is an ass ociated periapical abscess measuring maximally 5 mm present. Periodontal abscess is suspected along t he lingual aspect of the mandible in this region measuring maximally 13 x 8 mm. There is mild surroun ding edema within the soft tissues with mild enlargement of the submandibular gland. Several adjacent mildly enlarged presumably reactive left submandibular lymph nodes are present. No prevertebral fluid or abscess. IMPRESSION: Prominent dental osmin posterior left third molar with associated periapical abscess and adjacent soft tissue odontogenic abscess as described.
[2020-06-17] MEDS ORDERED: FENTANYL CITR 100 MCG/2 ML ONE (20:05)
[2020-06-17] MEDS ORDERED: CLINDAMYCIN 600MG/D5W 600 MG/50 ML BAG IV ONE (20:05)
--- NOTE | 2020-06-17 20:22 | EDPHYS ---
Physician Documentation [facility] Name: Elena Hensley Age: 25 yrs Sex: Female : 1995 Arrival Date: 06/17/2020 Time: 13:46 Bed 13 Private MD: ED Physician Rocky March HPI: 06/17 18:25 This 25 yrs old Female presents to ER via Ambulatory with complaints of cp Facial Swelling. 18:25 The patient presents with pain. The problem is located in the left lower jaw. cp 18:25 Onset: The symptoms/episode began/occurred 5 day(s) ago. Duration: The symptoms are cp continuous, and are steadily getting worse. 18:25 Associated signs and symptoms: Pertinent positives: left lower jaw swelling, Pertinent cp negatives: fever, inability to eat. 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 - Social history:: Smoking status: Patient denies any tobacco usage or history of. ROS: 18:30 Constitutional: Negative for body aches, chills, fever, poor PO intake. cp 18:30 Eyes: Negative for injury, pain, redness, and discharge. cp 18:30 ENT: Positive for dental pain, Negative for ear pain, difficulty swallowing, difficulty handling secretions. 18:30 Cardiovascular: Negative for chest pain. 18:30 Respiratory: Negative for cough, shortness of breath, wheezing. 18:30 Skin: Negative for rash. 18:30 Neuro: Negative for altered mental status, headache. 18:30 All other systems are negative. Exam: 18:45 Constitutional: The patient appears in no acute distress, alert, awake, non-toxic, well cp developed, well nourished, uncomfortable. 18:45 Head/face: Noted is swelling, that is mild, of the left jaw, tenderness, that is cp severe, of the left jaw. 18:45 Eyes: Periorbital structures: appear normal, Conjunctiva: normal, no exudate, no injection, Sclera: no appreciated abnormality, Lids and lashes: appear normal, bilaterally. 18:45 ENT: External ear(s): are unremarkable, Ear canal(s): are normal, clear, TM's: dullness, bilaterally, Nose: is normal, Mouth: Lips: moist, Oral mucosa: pink and intact, moist, Gums: normal with healthy appearance, Tongue: is normal, abscess, is not appreciated, unable to open mouth, Posterior pharynx: Airway: no evidence of obstruction, patent, Tonsils: are normal in appearance, swelling, is not appreciated, erythema, is not appreciated. 18:45 Neck: ROM/movement: is normal, is supple, no meningismus, no nuchal rigidity. 18:45 Chest/axilla: Inspection: normal, Palpation: is normal, no crepitus, no tenderness. 18:45 Cardiovascular: Rate: tachycardic, Rhythm: regular. 18:45 Respiratory: the patient does not display signs of respiratory distress, Respirations: normal, no use of accessory muscles, no retractions, labored breathing, is not present, Breath sounds: are clear throughout, no decreased breath sounds. 18:45 Abdomen/GI: Inspection: abdomen appears normal, Palpation: abdomen is soft and non-tender, in all quadrants. 18:45 Skin: no rash present. 18:45 Neuro: Orientation: to person, place \T\ time. Mentation: is normal. Vital Signs: 14:07 BP 109 / 75; Pulse 100; Resp 16; Temp 97.9; Pulse Ox 100% ; Weight 63.5 kg; Height 5 ll1 ft. 8 in. (172.72 cm); Pain 9/10; 19:10 BP 102 / 76; Pulse 81; Resp 18; Pulse Ox 99% on R/A; ll2 20:15 BP 118 / 83; Pulse 98; Resp 16; Pulse Ox 99% on R/A; ll2 14:07 Body Mass Index 21.29 (63.50 kg, 172.72 cm) ll1 MDM: 17:41 Patient medically screened. 19:45 Data reviewed: vital signs, nurses notes, lab test result(s), radiologic studies, CT cp scan, and as a result, I will administer antibiotics transfer patient. 21:15 Physician consultation: was contacted at 21:05, regarding regarding transfer, to [facility]. patient's condition, accepting physician will be DR Gomez, maxillary/facial surgeon. 06/17 18:19 Order name: CBC with Diff cp 06/17 18:19 Order name: BMP; Complete Time: 19:35 cp 06/17 18:19 Order name: PT-INR; Complete Time: 19:35 cp 06/17 18:20 Order name: CBC with Automated Diff; Complete Time: 19:35 EDMS 06/17 19:39 Order name: Urine Dipstick--Ancillary (enter results); Complete Time: 21:01 mw2 06/17 19:39 Order name: Urine --Ancillary (enter results); Complete Time: 21:01 mw2 06/17 18:19 Order name: CT Facial Bones W/ Con \T\ Mpr; Complete Time: 19:35 cp 06/17 21:41 Order name: SARS-COV-2 RT PCR EDNM 06/17 18:19 Order name: Urine Dipstick-Ancillary (obtain specimen); Complete Time: 19:10 cp 06/17 18:19 Order name: Urine Test (obtain specimen); Complete Time: 19:10 cp Administered Medications: 19:14 Drug: TORadol - Ketorolac 15 mg Route: IVP; Site: right antecubital; ll2 20:00 Follow up: Response: No adverse reaction ll2 19:55 Drug: fentaNYL (PF) 25 mcg Route: IVP; Site: right antecubital; ll2 20:55 Follow up: Response: Pain is decreased; Other; RASS: Alert and Calm (0); pt's BP ll2 dropped, ERP notified and second dose of medication held. 20:41 Drug: Clindamycin 600 mg Route: IVPB; Infused Over: 30 mins; Site: right antecubital; ll2 21:07 CANCELLED (Physician Discretion): Demerol 25 mg IVP once; RASS on ADMIN: Combtv4, Very cp Agttd3, Agttd2, Rstlss1, AlertClm0, Drwsy-1, Lt Sdtn-2, Mod Sdtn-3, Dp Sdtn-4, UnArsble-5 21:11 Drug: NS 0.9% 1000 ml Route: IV; Rate: 1000 ml/hr; Site: right antecubital; ll2 22:00 Follow up: Response: No adverse reaction; IV Status: Completed infusion; IV Intake: ll2 1000ml 21:30 Drug: NS 0.9% 1000 ml Route: IV; Rate: 500 ml/hr; Site: right antecubital; ll2 22:30 Follow up: Response: No adverse reaction; IV Status: Completed infusion; IV Intake: ll2 1000ml 06/18 05:40 Not Given (Physician Discretion): fentaNYL (PF) 25 mcg IVP once; RASS on ADMIN: ll2 Combtv4, Very Agttd3, Agttd2, Rstlss1, AlertClm0, Drwsy-1, Lt Sdtn-2, Mod Sdtn-3, Dp Sdtn-4, UnArsble-5 Disposition: 06/17 21:30 Chart complete. cp Disposition: 06/17/20 20:21 [facility] Diagnosis are Dental caries, Cellulitis and abscess of mouth. - Reason for transfer: Higher level of care. - Accepting physician is DR Gomez. - Condition is Stable. - Problem is new. - Symptoms have improved. Addendum: 06/19/2020 20:04 Co-signature as Attending Physician, Rocky March MD I agree with the assessment and k dr plan of care. Signatures: Dispatcher [employer] [facility] Rocky March MD MD kdr Marvin Uribe PA PA cp Joce Johnson jp3 Jennifer Harden, RN RN ll2 Sue Castanon RN RN ll1 Corrections: (The following items were deleted from the chart) 06/17 20:42 20:01 CORONAVIRUS+MR.LAB.BRZ ordered. [facility] EDNM 21:04 20:21 06/17/2020 20:21 Transfer ordered to Other Acute Care Facility. Diagnosis is cp Dental caries; Cellulitis and abscess of mouth. Reason for transfer: Higher level of care. Accepting physician is Doctor. Condition is Stable. Problem is new. Symptoms have improved. cp 21:07 21:05 Demerol 25 mg IVP once; RASS on ADMIN: Combtv4, Very Agttd3, Agttd2, Rstlss1, cp AlertClm0, Drwsy-1, Lt Sdtn-2, Mod Sdtn-3, Dp Sdtn-4, UnArsble-5 ordered. cp 21:44 21:04 06/17/2020 20:21 [facility] Diagnosis is Dental caries; cp Cellulitis and abscess of mouth. Reason for transfer: Higher level of care. Accepting physician is Doctor. Condition is Stable. Problem is new. Symptoms have improved. cp 23:19 21:44 06/17/2020 20:21 [facility] Diagnosis is Dental caries; jp3 Cellulitis and abscess of mouth. Reason for transfer: Higher level of care. Accepting physician is DR Gomez. Condition is Stable. Problem is new. Symptoms have improved. cp
--- NOTE | 2020-06-17 20:22 | ER ---
Nurse's Notes [facility] Name: Elena Hensley Age: 25 yrs Sex: Female : 1995 Arrival Date: 06/17/2020 Time: 13:46 Bed 13 Private MD: Diagnosis: Dental caries;Cellulitis and abscess of mouth Presentation: 06/17 14:07 Chief complaint: Patient states: Left lower jaw tooth pain and swelling to jaw area for ll1 5 days. On antibiotic amoxicillin for 4 days. No relief in pain or swelling. Fever 99.9 at home. Taking OTC tylenol and motrin, no relief. Coronavirus screen: Client denies travel out of the [place] in the last 14 days. At this time, the client does not indicate any symptoms associated with coronavirus-19. Ebola Screen: Patient denies travel to an Ebola-affected area in the 21 days before illness onset. Initial Sepsis Screen: Does the patient meet any 2 criteria? HR > 90 bpm. No. Patient's initial sepsis screen is negative. Does the patient have a suspected source of infection? Yes: Bone or joint infection. Risk Assessment: Do you want to hurt yourself or someone else? Patient reports no desire to harm self or others. Onset of symptoms was June 12, 2020. 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 - Social history:: Smoking status: Patient denies any tobacco usage or history of. Screenin:25 Abuse screen: Denies threats or abuse. Nutritional screening: No deficits noted. ll2 Tuberculosis screening: No symptoms or risk factors identified. Fall Risk None identified. Assessment: 19:20 General: Appears in no apparent distress. Behavior is calm, cooperative, appropriate ll2 for age. Pain: Complains of pain in left jaw. Neuro: Level of Consciousness is awake, alert, obeys commands, Oriented to person, place, time, situation. Cardiovascular: Patient's skin is warm and dry. Respiratory: Airway is patent Respiratory effort is even, unlabored, Respiratory pattern is regular, symmetrical. GI: No signs and/or symptoms were reported involving the gastrointestinal system. : No signs and/or symptoms were reported regarding the genitourinary system. EENT: No signs and/or symptoms were reported regarding the EENT system. Derm: Skin is intact, is healthy with good turgor, Skin is dry, Skin is pink, warm \T\ dry. Musculoskeletal: Circulation, motion, and sensation intact. Range of motion: intact in all extremities. 20:55 Reassessment: Patient and/or family updated on plan of care and expected duration. Pain ll2 level reassessed. Patient is alert, oriented x 3, equal unlabored respirations, skin warm/dry/pink. 22:00 Reassessment: Patient and/or family updated on plan of care and expected duration. Pain ll2 level reassessed. Patient is alert, oriented x 3, equal unlabored respirations, skin warm/dry/pink. 22:00 Reassessment: low BP noted and ERD notified. ll2 22:49 Reassessment: report given to receiving nurse ABI Lam. ll2 Vital Signs: 14:07 BP 109 / 75; Pulse 100; Resp 16; Temp 97.9; Pulse Ox 100% ; Weight 63.5 kg; Height 5 ll1 ft. 8 in. (172.72 cm); Pain 9/10; 19:10 BP 102 / 76; Pulse 81; Resp 18; Pulse Ox 99% on R/A; ll2 20:15 BP 118 / 83; Pulse 98; Resp 16; Pulse Ox 99% on R/A; ll2 14:07 Body Mass Index 21.29 (63.50 kg, 172.72 cm) ll1 ED Course: 13:46 Patient arrived in ED. am4 14:10 Triage completed. ll1 14:11 Arm band placed on. ll1 17:36 Johanna Allen, ABI is Primary Nurse. iw 17:38 Marvin Uribe PA is PHCP. cp 17:38 Rocky March MD is Attending Physician. cp 19:14 Jennifer Harden, ABI is Primary Nurse. ll2 19:22 CT Facial Bones W/ Con \T\ Mpr In Process Unspecified. EDMS 19:25 Patient has correct armband on for positive identification. Bed in low position. Call 2 light in reach. Side rails up X 1. Pulse ox on. NIBP on. 19:54 initiated a transfer with Celena from [facility] [place]. mw2 20:02 Celena from [facility] informed us that they are going to decline due to mw2 capacity. 20:03 initiated a transfer with Joce from [facility] Transfer [place]. mw2 21:00 doc to doc with the [facility] Specialist from [facility]. mw2 22:04 administrative approval given by Joce Jeter/ patient has been accepted to [address] C bed 943/ Dr. Gomez has accepted the patient in transfer/ report to be called to [phone]. 22:50 No provider procedures requiring assistance completed. Patient transferred, IV remains ll2 in place. Administered Medications: 19:14 Drug: TORadol - Ketorolac 15 mg Route: IVP; Site: right antecubital; ll2 20:00 Follow up: Response: No adverse reaction ll2 19:55 Drug: fentaNYL (PF) 25 mcg Route: IVP; Site: right antecubital; ll2 20:55 Follow up: Response: Pain is decreased; Other; RASS: Alert and Calm (0); pt's BP ll2 dropped, ERP notified and second dose of medication held. 20:41 Drug: Clindamycin 600 mg Route: IVPB; Infused Over: 30 mins; Site: right antecubital; ll2 21:07 CANCELLED (Physician Discretion): Demerol 25 mg IVP once; RASS on ADMIN: Combtv4, Very cp Agttd3, Agttd2, Rstlss1, AlertClm0, Drwsy-1, Lt Sdtn-2, Mod Sdtn-3, Dp Sdtn-4, UnArsble-5 21:11 Drug: NS 0.9% 1000 ml Route: IV; Rate: 1000 ml/hr; Site: right antecubital; ll2 22:00 Follow up: Response: No adverse reaction; IV Status: Completed infusion; IV Intake: ll2 1000ml 21:30 Drug: NS 0.9% 1000 ml Route: IV; Rate: 500 ml/hr; Site: right antecubital; ll2 22:30 Follow up: Response: No adverse reaction; IV Status: Completed infusion; IV Intake: ll2 1000ml 06/18 05:40 Not Given (Physician Discretion): fentaNYL (PF) 25 mcg IVP once; RASS on ADMIN: ll2 Combtv4, Very Agttd3, Agttd2, Rstlss1, AlertClm0, Drwsy-1, Lt Sdtn-2, Mod Sdtn-3, Dp Sdtn-4, UnArsble-5 Intake: 06/17 22:00 IV: 1000ml; Total: 1000ml. ll2 22:30 IV: 1000ml; Total: 2000ml. ll2 Outcome: 20:21 ER care complete, transfer ordered by . cp 22:50 Transferred by ground EMS to [facility]. 2 22:50 Condition: stable 22:50 Instructed on the need for transfer. 23:19 Patient left the ED. jp3 Signatures: Dispatcher [employer] EDMS Johanna Allen, RN RN Marvin Nicholson PA PA cp [place], MyKena 2 Joce Johnson jp3 Jennifer Harden RN RN ll2 Sue Castanon RN RN ll1 Peggy Salter am4
[2020-06-17 20:37] LABS: Urine Blood NEGATIVE (NEG); Urine Glucose NEGATIVE (NEG); Urine Protein NEGATIVE (NEG)
[2020-06-17] MEDS ORDERED: NA CHLORIDE 0.9% 2,000 ML ONE (21:24)
[2020-06-18 01:10] VITALS: TEMP 97.9
[2020-06-18 01:11] VITALS: O2SAT 99
[2020-06-18 01:13] VITALS: BP 118/83
== END 2020-06-17 23:19 | disposition short-term general hospital (02) ==
LOC: ER 13:40
DX: K12.2 Cellulitis and abscess of mouth (principal); K02.9 Dental caries, unspecified; Z88.8 Allergy status to other drugs, medicaments and biological substances; Z20.822 Contact with and (suspected) exposure to COVID-19
CPT/HCPCS: 36415; 70487; 76377; 80048; 81003; 81025; 85025; 85610; 96361; 96374; 96375; 99285; J3010; J7030; Q9967; U0003

== ENCOUNTER 2020-06-21 18:16 | Emergency (ER) | payer SELFPAY ==
--- OUTSIDE RECORDS SUMMARY | 2020-06-21 18:18 | XMS REPORT | Clinical Summary ---
:1995 Author Organization [facility] Address [address] [place] [address] Care Team Providers Name Role Phone MD [...] unspecified vom iting type (Primary Dx) after 06/21/2019 Immunizations Name Administration Dates Next Due Tdap [...] Comments Blood Pressure 106/68 04/08/2020 1:28 PM CLINICAL VETERINARIAN Pulse 114 04/08/2020 1:28 PM CLINICAL VETERINARIAN Temperature 36 C (96.8 F) 04/08/2020 1:28 PM CLINICAL VETERINARIAN Respiratory Rate 20 04/08/2020 1:28 PM CLINICAL VETERINARIAN Oxygen Saturation 100% 04/08/2020 1:28 PM CLINICAL VETERINARIAN Inhaled Oxygen Concentration - - Weight 65.8 kg (145 lb) 07/22/2019 8:29 AM CLINICAL VETERINARIAN Height 172.7 cm (5' 8") 07/22/2019 8:29 AM CLINICAL VETERINARIAN Body Mass Index 22.05 07/22/2019 8:29 AM CLINICAL VETERINARIAN Plan of Treatment Health Maintenance Due Date Last Done Comments COVID-19 VACCINE (1 of 2) 2009 CERVICAL CANCER SCREENING 2014 INFLUENZA VACCINE 12/19/2019 Procedures Procedure Name Priority Date/Time Associated Comments Diagnosis COVID-19 QUALITATIVE STAT 04/05/2020 9:41 Res ults for this PCR PM CLINICAL VETERINARIAN procedure are i n the results section. URINE CULTURE STAT 04/05/2020 8:59 Results fo r this PM CLINICAL VETERINARIAN procedure are i n the results section. URINE DRUGS OF ABUSE STAT 04/05/2020 8:42 Res ults for this SCREEN PM CLINICAL VETERINARIAN procedure are i n the results section. HCG QUALITATIVE, URINE STAT 04/05/2020 8:42 R esults for this SCREEN PM CLINICAL VETERINARIAN procedure are i n the results section. URINALYSIS SCREEN AND STAT 04/05/2020 8:42 Re sults for this MICROSCOPY, WITH REFLEX PM CLINICAL VETERINARIAN proc edure are in TO CULTURE the results section. BILIRUBIN DIRECT STAT 04/05/2020 7:23 Results for this PM CLINICAL VETERINARIAN procedure are i n the results section. ESTIMATED GFR STAT 04/05/2020 7:23 Results fo r this PM CLINICAL VETERINARIAN procedure are i n the results section. SALICYLATE LEVEL STAT 04/05/2020 7:23 Results for this PM CLINICAL VETERINARIAN procedure are i n the results section. ACETAMINOPHEN LEVEL STAT 04/05/2020 7:23 Resu lts for this PM CLINICAL VETERINARIAN procedure are i n the results section. ALCOHOL LEVEL, BLOOD STAT 04/05/2020 7:23 Res ults for this PM CLINICAL VETERINARIAN procedure are i n the results section. T4, FREE STAT 04/05/2020 7:23 Results for this PM CLINICAL VETERINARIAN procedure are i n the results section. THYROID STIMULATING STAT 04/05/2020 7:23 Resu lts for this HORMONE PM CLINICAL VETERINARIAN procedure are i n the results section. CREATINE KINASE, TOTAL STAT 04/05/2020 7:23 R esults for this (CPK) PM CLINICAL VETERINARIAN procedure are i n the results section. COMPREHENSIVE METABOLIC STAT 04/05/2020 7:23 Results for this PANEL PM CLINICAL VETERINARIAN procedure are i n the results section. HC COMPLETE BLD COUNT STAT 04/05/2020 7:23 Re sults for this W/AUTO DIFF PM CLINICAL VETERINARIAN procedure are i n the results section. ECG ED PRELIMINARY Routine 04/05/2020 7:22 Resul ts for this INTERPRETATION PM CLINICAL VETERINARIAN procedure are in the results section. ECG 12-LEAD STAT 04/05/2020 7:12 Results for this PM CLINICAL VETERINARIAN procedure are i n the results section. ESTIMATED GFR STAT 07/22/2019 8:37 Results fo r this AM CLINICAL VETERINARIAN procedure are i n the results section. HCG QUALITATIVE, URINE STAT 07/22/2019 8:37 R esults for this SCREEN AM CLINICAL VETERINARIAN procedure are i n the results section. URINE DRUGS OF ABUSE STAT 07/22/2019 8:37 Res ults for this SCREEN AM CLINICAL VETERINARIAN procedure are i n the results section. URINALYSIS SCREEN AND STAT 07/22/2019 8:37 Re sults for this MICROSCOPY, WITH REFLEX AM CLINICAL VETERINARIAN proc edure are in TO CULTURE the results section. LIPASE LEVEL STAT 07/22/2019 8:37 Results for this AM CLINICAL VETERINARIAN procedure are i n the results section. COMPREHENSIVE METABOLIC STAT 07/22/2019 8:37 Results for this PANEL AM CLINICAL VETERINARIAN procedure are i n the results section. HC COMPLETE BLD COUNT STAT 07/22/2019 8:37 Re sults for this W/AUTO DIFF AM CLINICAL VETERINARIAN procedure are i n the results section. URINE CULTURE STAT 07/22/2019 8:37 Results fo r this AM CL[facility]ICAL VETERINARIAN procedure are i n the results section. after 06/21/2019 Results COVID-19 qualitative PCR (04/05/2020 9:41 PM CLINICAL VETERINARIAN) Interpretation Negative results do not prec lude 2019-nCoV infection and should not be used as the sole basis for treatment or other patient management decisions. Negative results must be combined with clinical observations, patient history, and epidemiological [facility] information. [facility] COVID-19 qualitative Not-Detected Not-Detecte [facility] PCR result d [facility] COVID-19 qualitative See link below for [facility] PCR PDF Lab [facility] ReportComment: Case HOSPITAL Number: [id number] Specimen Nasopharyngeal swab Performing Organization Address [facility] Phon e Number [facility] DEPARTMENT OF PATHOLOGY AND [address] [place] [address] [address] [facility] Urine culture (04/05/2020 8:59 PM CLINICAL VETERINARIAN)Only the most recent of2 resultswithin the time period is included. [facility] Urine culture Mixed brunilda <=10-3 col/cc [facility] IST isolate Comment: HOSPITAL Specimen Information Specimen Source: Urine Specimen Site: Clean catch Specimen Urine Performing Organization Address [facility] Phon e Number [facility] DEPARTMENT OF PATHOLOGY AND [address] [place] [address] [address] Urinalysis screen and microscopy, with reflex to culture (04/05/2020 8:42 PM CLINICAL VETERINARIAN)Only the most recent of2 resultswithin the time period is included. Specimen site Clean catch [facility] Color, UA Yellow [facility] Appearance, UA Clear [facility] Specific gravity, UA 1.029 1.001 - 1.035 [facility] pH, UA 6.0 5.0 - 8.5 [facility] Protein, UA 1+ (A) Negative [facility] Glucose, UA Negative Negative [facility] Ketones, UA 1+ (A) Negative [facility] Bilirubin, UA Negative Negative [facility] Blood, UA Small (A) Negative [facility] Nitrite, UA Negative Negative [facility] Urobilinogen, UA Negative <2.0 [facility] Leukocyte esterase, Large (A) Negative [facility] Epithelial cells, UA Many /HPF [facility] WBC, UA 26 (H) 0 - 5 /HPF [facility] RBC, UA 7 (H) 0 - 5 /HPF [facility] Bacteria, UA Trace None seen [facility] Yeast, UA None seen [facility] Yeast with None seen [facility] pseudohyphae, UA [facility] Specimen Urine Performing Organization Address City/State/ZIP Code Phon e Number [facility] DEPARTMENT OF PATHOLOGY AND [address] [place] [address] [address] [place] [id number] hCG qualitative, urine screen (04/05/2020 8:42 PM CLINICAL VETERINARIAN)Only the most recent of2 resultswithin the time period is included. Pathologist [facility] hCG qualitative, Negative Negative [facility] urine Comment: [facility] The manufacturers stated sensitivity of HcG test for s kiara is >/= 10 mIU/ml and urine is >/= 20mIU/ml. Specimen Urine Performing Organization Address City/State/ZIP Code Phon e Number [facility] DEPARTMENT OF [place]OLOGY AND [address] [place] [address] [address] Urine drugs of abuse screen (04/05/2020 8:42 PM CLINICAL VETERINARIAN)Only the most recent of2 resultswithin the time period is included. Pathologist [facility] Amphetamine screen, Positive (A) [facility] urine [facility] Barbiturate screen, Negative [facility] urine [facility] Benzodiazepine Positive (A) [facility] screen, urine [facility] Cocaine screen, urine Negative [facility] Methadone metabolite Negative [facility] (EDDP), urine [facility] Opiates screen, urine Negative [facility] Oxycodone screen, Negative [facility] urine [facility] Phencyclidine screen, Negative [facility] urine [facility] Cannabinoid screen, Positive (A) [facility] urine Comment: [facility] Drug screen minimum concentration of detectability [facility] Amphetamines 1000 ng/mL HOSPITAL Barbiturates 200 ng/mL [...] requir ed. Specimen Urine Performing Organization Address City/[facility] Phon e Number [facility] DEPARTMENT OF PATHOLOGY AND [address] [place], [place] [address] GENOMIC MEDICINE [facility] [address] [place] [address] Estimated GFR (04/05/2020 7:23 PM CLINICAL VETERINARIAN)Only the most recent of2 resultswithin the time period is included. Pathologist [facility] Estimated GFR >=90 mL/min/1.73 [facility] Comment: m2 [facility] Catergory Units Interpretation G1 >=90 Normal [...] in 2014. Specimen Plasma Performing Organization Address City/[facility] Phon e Number [facility] DEPARTMENT OF PATHOLOGY [place] [address] [address] GENOMIC MEDICINE [facility] [address] [place], [place] [address] CBC with platelet and differential (04/05/2020 7:23 PM CLINICAL VETERINARIAN)Only the most recent of2 resultswithin the time period is included. Pathologist Sig nature WBC 7.8 4.2 - 11.0 k/uL [facility] RBC 4.65 4.04 - 5.86 [facility] m/uL [facility] HGB 13.7 11.5 - 15.3 [facility] g/dL [facility] HCT 41.7 34.0 - 45.0 % [facility] MCV 89.7 80.0 - 98.0 fL [facility] MCH 29.5 27.0 - 34.0 pg [facility] MCHC 32.9 31.5 - 36.5 [facility] g/dL [facility] RDW - SD 42.4 37.0 - 51.0 fL [facility] MPV 9.2 7.4 - 10.4 fL [facility] Platelet count 444 (H) 150 - 400 k/uL [facility] Nucleated RBC 0.00 /100 WBC [facility] Neutrophils 62.3 36.0 - 66.0 % [facility] Lymphocytes 27.4 24.0 - 44.0 % [facility] Monocytes 8.7 (H) 0.0 - 6.0 % [facility] Eosinophils 0.5 0.0 - 6.0 % [facility] Basophils 0.8 0.0 - 1.2 % [facility] Immature granulocytes 0.3 0.0 - 1.0 % [facility] Specimen Plasma Performing Organization Address City/State/ZIP Code Phon e Number [facility] DEPARTMENT OF PATHOLOGY AND [address] [facility] [place], [place] [address] [facility] MEDICINE [facility] [address] [place] [address] Thyroid stimulating hormone (04/05/2020 7:23 PM CLINICAL VETERINARIAN) Pathologist Sig nature TSH 2.16 0.27 - 4.20 uIU/mL [facility] Specimen Plasma Performing Organization Address City/[facility] Phon e Number [facility] DEPARTMENT OF PATHOLOGY AND [address] [place] [address] [facility] [address] [place], [place] [address] T4, free (04/05/2020 7:23 PM CLINICAL VETERINARIAN) Pathologist Sig nature T4, free 1.83 (H) 0.90 - 1.70 ng/dL [facility] Specimen Plasma Performing Organization Address City/[facility] Phon e Number [facility] DEPARTMENT OF PATHOLOGY AND [address] [place] [address] [facility] [address] [place] [address]. [place], [place] [address] Creatine kinase, total (CPK) (04/05/2020 7:23 PM CLINICAL VETERINARIAN) Pathologist Sig nature Creatine kinase 72 26 - 192 U/L [facility] Specimen Plasma Performing Organization Address City/[facility] Phon e Number [facility] DEPARTMENT OF PATHOLOGY AND [address] [place] [address] [facility] [address] [facility] [place], [place] [address] Bilirubin direct (04/05/2020 7:23 PM CLINICAL VETERINARIAN) Pathologist Sig nature Bilirubin direct 0.3 0.0 - 0.4 mg/dL [facility] Specimen Plasma Performing Organization Address City/[facility] Phon e Number [facility] DEPARTMENT OF PATHOLOGY AND [address] [place] [address] [facility] [address] [facility] [place] [address] Alcohol level, blood (04/05/2020 7:23 PM CLINICAL VETERINARIAN) Alcohol None Detected mg/dL [facility] Comment: [facility] Normal None Detecte d Legal Intoxication in [place] 80 mg/dL (0.08%) Toxic Concentration 200 mg/dL (0.2%) Potentially Fatal 350-500 mg/dL (0.3 5%-0.5%) Alcohol percent None Detected % [facility] Specimen Blood Performing Organization Address City/[facility] Phon e Number [facility] DEPARTMENT OF PATHOLOGY AND [address] [place] [address] [facility] MEDICINE [facility] [address] [facility] [address] [place] [address] Acetaminophen level (04/05/2020 7:23 PM CLINICAL VETERINARIAN) Acetaminophen level <15.3 10.0 - 30.0 [facility] Comment: ug/mL [facility] Therapeutic 1 0-30 ug/mL [facility] Possible Toxicity 150- 200 ug/mL Probable Toxicity >200 ug/mL Specimen Blood Performing Organization Address City/[facility] Phon e Number [facility] DEPARTMENT OF PATHOLOGY AND [address] [place] [address] [facility] [address] [facility] [place] [address] Salicylate level (04/05/2020 7:23 PM CLINICAL VETERINARIAN) Pathologist Sig nature Salicylate <0.4 (L) 3.0 - 30.0 [facility] Comment: mg/dL [facility] Therapeutic Range: 5 - 30 mg/dL Specimen Blood Performing Organization Address City/[facility] Phon e Number [facility] DEPARTMENT OF PATHOLOGY AND [address] [facility] [address] [place] [address] [facility] MEDICINE [facility] [address] [place] [address] Comprehensive metabolic panel (04/05/2020 7:23 PM CLINICAL VETERINARIAN)Only the most recent of2 resultswithin the time period is included. Pathologist Sig nature Sodium 139 135 - 150 mEq/L [facility] Potassium 3.7 3.5 - 5.0 mEq/L [facility] Chloride 103 98 - 112 mEq/L [facility] CO2 24 24 - 31 mmol/L [facility] Anion gap 12@ANIO 7 - 15 mEq/L [facility] BUN 15 7 - 18 mg/dL [facility] Creatinine 0.80 0.50 - 0.90 [facility] mg/dL [facility] Glucose 97 65 - 100 mg/dL [facility] Calcium 10.0 8.3 - 10.2 mg/dL [facility] Protein 8.1 6.3 - 8.3 g/dL [facility] Albumin 4.3 3.5 - 5.0 g/dL [facility] A/G ratio 1.1 0.7 - 3.8 [facility] Alkaline phosphatase 69 0 - 104 U/L [facility] AST 19 10 - 35 U/L [facility] ALT 35 5 - 50 U/L [facility] Total bilirubin 1.5 (H) 0.2 - 1.2 mg/dL [facility] Specimen Plasma Performing Organization Address City/State/ZIP Code Phon e Number [facility] DE[facility] OF PATHOLOGY AND [address] [place], [place] [address] GENOMIC MEDICINE [facility] [address] [place], [place] [address] ECG ED Preliminary Interpretation - Not an Order (04/05/2020 7:22 PM CLINICAL VETERINARIAN) Narrative Performed At Steven Lake MD 04/07/2020 5:03 PM ECG ED Preliminary Interpretation - Not an Order Performed by: Steven Lake MD Authorized by: Steven Lake MD ECG reviewed by ED Physician in the abse nce of a dock grader: yes Interpretation: Interpretation: normal Rate: ECG rate: 91 ECG rate assessment: normal Rhythm: Rhythm: sinus rhythm Ectopy: Ectopy: none QRS: QRS axis: Normal QRS intervals: Normal Conduction: Conduction: normal ST segments: ST segments: Normal T waves: T waves: normal ECG 12 lead (04/05/2020 7:12 PM CLINICAL VETERINARIAN) Pathologist Sig nature Ventricular rate 91 [facility] Atrial rate 91 [facility] [place] interval 132 [facility] QRSD interval 86 [...] is no t available. Performing Organization Address City/[facility]/ZIP Code Phon e Number [facility] MUSE [address] [place] [address] Lipase level (07/22/2019 8:37 AM CLINICAL VETERINARIAN) Pathologist Sig nature Lipase 76 (H) 13 - 60 U/L [facility] Specimen Plasma specimen Performing Organization Address City/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
--- OUTSIDE RECORDS SUMMARY | 2020-06-21 18:19 | XMS REPORT | Continuity of Care Document ---
:1995 Author Organization [facility] t Address [address] [place] [address] Care Team Providers Name Role Phone Anyi HITCHCOCK, Marichuy Primary Care Physician Jordon Gomez DDS Attending Clinician Jaya HITCHCOCK, P. Attending Clinician Nasir Cardenas MD Attending Clinician Shadia Gomez DDS Admitting Clinician Payers Payer Name Policy Type Policy Number Effective Date Expiration Date S ource Problems Condition Condition Condition Status Onset Resolution Last Treating Co mments Source Name Details Category Date Date Treatment Clinician Date Cellulitis Cellulitis Disease Active [place] [facility] 7-24 Method[facility] 00:00: st 00 Allergies, Adverse Reactions, Alerts Allergy Allergy Status Severity Reaction(s) Onset Inactive Treating Comm ents Source Name Type Date Date Clinician escitalo DA Active MO 2018-0 [facility] pram 5-13 Clear 00:00: [place] 00 [facility] Escitalo Propensi Active [place] pram ty to 12-10 [facility] Oxalate adverse 00:00: st reaction 00 s to drug Social History Social Habit Start Date Stop Date Quantity Comments Source Sex Assigned At [facility] ethodist Tobacco use and 2020-04-06 2020-04-06 Never used [facility] ethodist exposure 00:00:00 00:00:00 Alcohol intake 2020-04-06 2020-04-06 Current drinker [place] [facility] 00:00:00 00:00:00 of alcohol (finding) Alcohol Comment 2016-12-10 2016-12-10 once a month [place] [facility] 00:00:00 00:00:00 Smoking Status Start Date Stop Date Source Never smoker [place] [facility] t Medications Ordered Filled Start Stop Current Ordering Indication Dosage Frequency Signature Comments Components Source Medication Medication Date Date Medication? Clinician (SIG) Name Name ondansetron 2019- No 8mg Q8H Take 1 Ita ston ODT (ZOFRAN 07-21 tablet (8 Me thodi ODT) 8 MG [...] tablet 00 :00 times a day. sertraline 2019- No 100mg QD Take 100 [place] (ZOLOFT) 11-28 mg by Methodi 100 MG 00:00: 00:[address] tablet 00 :00 every evening. hydrOXYzine 2020- No 10mg QD Take 10 mg [facility] (ATARAX) 10 11-28 by mouth Met hodi MG tablet 00:00: 00:[address] 00 :00 morning. ALPRAZolam 2019- No 1mg Q.5D Take 1 mg [place] (XANAX) 1 11-16 by mouth 2 Met hodi MG tablet 00:00: 00:00 (two) st 00 :00 times a day as needed. traZODone 2019- No 50mg QD Take 50 mg [place] (DESYREL) 10-29 by mouth Metho di 50 MG 00:00: 00:[address] tablet 00 :00 evening. PROAIR HFA 2019- No 2{puff} Q4H Inhale [address] [place] [id number] 10-24 puffs Methodi mcg/actuati 00:00: 00:[address] on inhaler 00 :00 (four) hours as needed. Immunizations Ordered Immunization Filled Immunization Date Status Commen ts Source Name Name Tdap 2016-12-10 Completed [place] 00:00:00 [facility] Vital Signs Vital Name Observation Time Observation Value Comments Source Systolic blood 2020-04-08 13:28:55 106 mm[Hg] [place] [facility] pressure Diastolic blood 2020-04-08 13:28:55 68 mm[Hg] [place] [facility] pressure Heart rate 2020-04-08 13:28:55 114 /min [place] [facility] Body temperature 2020-04-08 13:28:55 36 Haylie [place] [facility] Respiratory rate 2020-04-08 13:28:55 20 /min [place] [facility] Oxygen saturation in 2020-04-08 13:28:55 100 /min [place] [facility] Arterial blood by Pulse oximetry Body height 2019-07-22 08:29:00 172.7 cm [place] [facility] Body weight 2019-07-22 08:29:00 65.772 kg [place] [facility] BMI 2019-07-22 08:29:00 22.05 kg/m2 [place] [facility] Procedures Procedure Date / Time Performing Clinician Source Performed COVID-19 QUALITATIVE PCR 2020-04-05 21:41:00 [place] [facility] URINE CULTURE 2020-04-05 20:59:00 Steven Lake hodist URINALYSIS SCREEN AND 2020-04-05 20:42:00 [place] on [facility] MICROSCOPY, WITH REFLEX TO CULTURE HCG QUALITATIVE, URINE 2020-04-05 20:42:00 [place] [facility] SCREEN URINE DRUGS OF ABUSE 2020-04-05 20:42:00 [place] [facility] SCREEN HC COMPLETE BLD COUNT 2020-04-05 19:23:00 [place] on [facility] W/AUTO DIFF COMPREHENSIVE METABOLIC 2020-04-05 19:23:00 [place] [facility] PANEL CREATINE KINASE, TOTAL 2020-04-05 19:23:00 [place] [facility] (CPK) THYROID STIMULATING 2020-04-05 19:23:00 Steven Lake HORMONE T4, FREE 2020-04-05 19:23:00 Steven Lake Met hodist ACETAMINOPHEN LEVEL 2020-04-05 19:23:00 Steven Lakeist SALICYLATE LEVEL 2020-04-05 19:23:00 Steven Lake Me thodist ESTIMATED GFR 2020-04-05 19:23:00 Steven [place] Met hodist BILIRUBIN DIRECT 2020-04-05 19:23:00 Steven [place] Me thodist ECG ED PRELIMINARY 2020-04-05 19:22:32 Steven Lake INTERPRETATION ECG 12-LEAD 2020-04-05 19:12:10 Steven [place] Met hodist URINE CULTURE 2019-07-22 08:37:00 Minesh Cardenas Meth odist Nasir HC COMPLETE BLD COUNT 2019-07-22 08:37:00 Minesh Cardenas [facility] W/AUTO DIFF Nasir COMPREHENSIVE METABOLIC 2019-07-22 08:37:00 Minesh Cardenas [facility] PANEL Nasir LIPASE LEVEL 2019-07-22 08:37:00 Minesh Cardenas Meth odist Nasir URINALYSIS SCREEN AND 2019-07-22 08:37:00 Minesh Cardenas MICROSCOPY, WITH REFLEX TO Nasir CULTURE URINE DRUGS OF ABUSE 2019-07-22 08:37:00 Minesh Cardenas SCREEN Nasir HCG QUALITATIVE, URINE 2019-07-22 08:37:00 Minesh Cardenas on [facility] SCREEN Nasir ESTIMATED GFR 2019-07-22 08:37:00 Minesh Cardenas [facility]ist Nasir Plan of Care Planned Activity Planned Date Details Comments Source Future Scheduled 2019-12-19 INFLUENZA VACCINE [place] [facility] Test 00:00:00 [code = INFLUENZA VACCINE] Future Scheduled 2014 Screening for [facility] Test 00:00:00 malignant neoplasm of cervix (procedure) [code = 554715949] Future Scheduled 2009 COVID-19 VACCINE (1 [place] [facility] Test 00:00:00 of 2) [code = COVID-19 VACCINE (1 of 2)] Encounters Start End Encounter Admission Attending Care Care Encounter Source Date/Time Date/Time Type Type Clinicians Facility Department ID 2020-06-18 2020-06-19 [facility] Melanie Gomez [id number] 00:41:00 16:00:00 Encounter Jordon Meza [id number] [facility] [id number] 2020-04-08 2020-04-12 Outpatient HCPCDOCS HCPCDOCS [id number] 14:49:00 13:29:00 18 2020-04-05 2020-04-08 Emergency JAYA, [facility] [id number] [place] 00:00:00 00:00:00 STEVEN Cummins[address] [facility] 2020-01-25 2020-01-25 Emergency E MHSE MHSE 7510 12:23:00 12:23:[address] [facility] 2019-07-22 2019-07-22 Emergency [facility] 064 [id number] [place] 00:00:00 00:00:00 MINESH [address] 2018-10-01 2018-10-01 Emergency E MHSE MHSE 7509 17:19:00 17:19:[address] [facility] Results Test Description Test Time Test Comments Results Result Comments Source ECG 12 lead 2020-04-08 12:03:03 Test Item Value Reference Range Interpretation Comme nts Ventricular rate (test code = 253) 91 Atrial rate (test code = 255) 91 [place] interval (test code = 266) 132 QRSD [...] sinus rhythm-Normal ECG-No previous ECGs available- Douglas Durbin [id number] 03:52:31 Test Item Value Reference Range Interpretation Comments Urine culture Mixed brunilda Specimen isolate (test <=10-3 col/cc InformationSp ecimen code = 80736-0) Source: Urin eSpecimen Site: Clean cat Douglas HurdCOVID-19 qualitative [id number] 02:22:22 Test Item Value Reference Range Interpretation Comments Interpretation (test Negative results do code = 2446832) not preclude 2019-nCoV infection and should not be used as the sole basis for treatment or other patient management decisions. Negative results must be combined with clinical observations, patient history, and epidemiological information. COVID-19 qualitative Not-Detected Not-Detected PCR result (test code = 84251-1) COVID-19 qualitative See link below for C ase Number: PCR (test code = PDF Lab Report [id number]) Douglas Durbin drugs of abuse [id number] 01:15:05 Test Item Value Reference Interpretation Comments Range Amphetamine screen, Positive A urine (test code = 3349-8) Barbiturate screen, Negative urine (test code = 3377-9) Benzodiazepine Positive A screen, urine (test code = 3390-2) Cocaine screen, Negative urine (test code = 3397-7) Methadone Negative metabolite (EDDP), urine (test code = 49659-6) Opiates screen, Negative urine (test code = 3879-4) Oxycodone screen, Negative urine (test code = 49984-4) Phencyclidine Negative screen, urine (test code = [...] ired. Lab Interpretation Abnormal (test code = 81420-9) [facility] MethodistUrinalysis screen and microscopy, with reflex to culture 2020-04-05 21:09:52 Test Item Value Reference Range Interpretation Comments Specimen site (test code = Clean catch 6310811) Color, UA (test code = 5778-6) Yellow Appearance, UA (test code = Clear 5767-9) Specific gravity, UA (test code = 1.029 1.001-1.035 5811-5) pH, UA (test code = 5803-2) 6.0 5.0-8.5 Protein, UA (test code = 20851-1) 1+ Negative A Glucose, UA (test code = 37852-9) Negative Negative Ketones, UA (test code = 2514-8) 1+ Negative A Bilirubin, UA (test code = Negative Negative 5770-3) Blood, UA (test code = 5794-3) Small Negative A Nitrite, UA (test code = 5802-4) Negative Negative Urobilinogen, UA (test code = Negative <2.0 50116-8) Leukocyte esterase, UA (test code Large Negative A = 5799-2) Epithelial cells, UA (test code = Many /HPF 5787-7) WBC, UA (test code = 5821-4) 26 0- 5 /HPF H RBC, UA (test code = 70378-7) 7 0- 5 /HPF H Bacteria, UA (test code = Trace None seen 03442-0) Yeast, UA (test code = 36994-2) None seen Yeast with pseudohyphae, UA (test None seen code = 24858-6) Lab Interpretation (test code = Abnormal 36477-5) [place] TriplettisthCG qualitative, urine [id number] 20:50:06 Test Item Value Reference Range Interpretation Comments hCG qualitative, Negative Negative The daijamanuelluigi manuel stated urine (test code = sensitivi ty of HcG test 2105-07) for serum is >/ = 10 mIU/ml and urine is >/ = 20mIU/ml. [facility] MethodistThyroid stimulating [id number] 20:09:17 Test Item Value Reference Range Interpretation Comments TSH (test code = 3016-3) 2.16 0.27- 4.20 uIU/mL [facility] MethodistT4, [id number] 20:09:16 Test Item Value Reference Range Interpretation Comments T4, free (test code = 3024-7) 1.83 ng/dL 0.9-1.7 H Lab Interpretation (test code = Abnormal 48566-3) [facility] MethodistComprehensive metabolic [id number] 19:57:55 Test Item Value Reference Range Interpretation Comments Sodium (test code = 2951-2) 139 135- 150 mEq/L Potassium (test code = 2823-3) 3.7 3.5- 5.0 mEq/L Chloride (test code = 5-0) 103 98- 112 mEq/L CO2 (test code = 2027-9) 24 mmol/L 24-31 Anion gap (test code = 53801-7) 12@ANIO 7- 15 mEq/L BUN (test code = 3094-0) 15 mg/dL 7-18 Creatinine (test code = 2160-0) 0.80 mg/dL 0.5-0.9 Glucose (test code = 2345-7) 97 mg/dL 65-100 Calcium (test code = 74813-4) 10.0 mg/dL 8.3-10.2 Protein (test code = [...] 1974-06) Lab Interpretation (test code = Abnormal 37437-5) [facility] MethodistCreatine kinase, total (CPK)2020-04-05 19:57:54 Test Item Value Reference Range Interpretation Comments Creatine kinase (test code = 2157-6) 72 U/L 26-192 [facility] MethodistBilirubin [id number] 19:57:53 Test Item Value Reference Range Interpretation Comments Bilirubin direct (test code = 0.3 mg/dL 0-0.4 1967-11) [place] MethodistEstimated [id number] 19:57:53 Test Item Value Reference Range Interpretation Comments Estimated GFR (test >=90 mL/min/1.73 m2 [facility] Rentalutions Units code = 5488) InterpretationG 1 >=90 Normal or highG2 60-89 Mildly qjdnljqrnO4d 45-59 Mildly to mode rately vpaksgcmnX1o 30-44 Moderately to severely decreasedG4 15-29 Severely decre asedG5 <15 Kidn ey failureThe eGFR was calculated rudy lizama the Chronic Kidney Disease Epidemiology Co llaboration (CKD-EPI) equat ion. Interpretation is based on recommendations of the National Kidney Foundation-Kidn ey Disease Outcomes Qualit y Initiative (NKF-KDOQI) pub lished in 2014. [place] MethodistSalicylate [id number] 19:56:47 Test Item Value Reference Range Interpretation Comments Salicylate (test code = <0.4 3-30 L Ther apeutic Range: 5 4024-6) - 30 mg/dL Lab Interpretation (test Abnormal code = 34835-3) [place] MethodistAcetaminophen [id number] 19:56:47 Test Item Value Reference Range Interpretation Comments Acetaminophen level (test <15.3 -30 erapeutic code = 3298-7) 10-30 ug/mL Possible Toxicity 150-200 ug/ mL Proba ble Toxicity >2 00 ug/mL [place] MethodistAlcohol level, [id number] 19:51:59 Test Item Value Reference Range Interpretation Comments Alcohol percent None Detected % Normal (test code = None 5643-2) DetectedLegal Intoxication in [place] 80 mg/dL (0.08% )Toxic Concentration 200 mg/dL (0.2%)Potential ly Fatal 350 -500 mg/dL (0.35%-0. 5%) [facility] with platelet and [id number] 19:40:39 Test Item Value Reference Range Interpretation Comments WBC (test code = 18165-1) 7.8 4.2- 11.0 k/uL RBC (test code = 38447-6) 4.65 m/uL 4.04-5.86 HGB (test code = 718-7) 13.7 g/dL 11.5-15.3 HCT (test code = 4544-3) 41.7 % 34-45 MCV (test code = 787-2) 89.7 fL 80-98 MCH (test code = 785-6) 29.5 pg 27-34 MCHC (test code = 786-4) 32.9 g/dL 31.5-36.5 RDW - SD (test code = 29524-8) 42.4 fL 37-51 MPV (test code = 24907-9) 9.2 fL 7.4-10.4 Platelet count (test code = 444 150- 400 k/uL H 02495-2) Nucleated RBC (test code = 25390-3) 0.00 /100 WBC Neutrophils (test code = 61019-7) 62.3 % 36-66 Lymphocytes (test code = 53754-8) 27.4 % 24-44 Monocytes (test code = 94518-3) 8.7 % 0-6 H Eosinophils (test code = 57905-3) 0.5 % 0-6 Basophils (test code = 36012-9) 0.8 % 0-1.2 Immature granulocytes (test code = 0.3 % 0-1 79568-3) Lab Interpretation (test code = Abnormal 30503-5) [facility] ED Preliminary Interpretation - Not an [id number] 19:22:32Steven Lake MD 04/07/2020 5:03 [facility] [place] Interpretation - Not an OrderPerformed by: Steven Lake MDAuthorized by: Steven Lake MD ECG reviewed by ED Physician in the absence of a thermal molder: yes Interpretation: Interpretation: normal Rate: ECG rate: 91 ECG rate assessment: normal Rhythm: Rhythm: sinus rhythm Ectopy: Ectopy: none QRS: QRS axis: Normal QRS intervals: NormalConduction: Conduction: normal ST segments: ST segments: NormalT waves: T waves: normalCam[place] MethodistLipase [id number] 08:59:55 Test Item Value Reference Range Interpretation Comments Lipase (test code = 3040-3) 76 U/L 13-60 H Lab Interpretation (test code = Abnormal 42401-0) [facility] MethodistDRUGS OF ABUSE SCREEN [id number] 12:16:00 Test Item Value Reference Range Interpretation [...] ed for non-medical pur poses. HEPATIC FUNCTION [id number] 12:08:00 Test Item Value Reference Range Interpretation [...] (test code = CK) UNITS/LITER HCG SERUM [id number] 12:08:00 Test Item Value Reference Range Interpretation Comments HCG SERUM QUAL (test code = SERUM NEGATIVE NEGATIVE HCGQL) THYROID STIMULATING [id number] 12:08:00 Test Item Value Reference Range Interpretation Comments THYROID STIMULATING 5.09 0.42-5.47 N Results in HORMONE (test code = TSH) mi lli-International Units/mL [id number] 12:08:00 Test Item Value Reference Range Interpretation Comments ACETAMINOPHEN (test code = ACET) < 2 ug/mL 10-30 L [id number] 12:08:00 Test Item Value Reference Range Interpretation Comments SALICYLATE (test code = JANETH) < 1.7 mg/dL 2.8-20.0 L [id number] 12:08:00 Test Item Value Reference Range Interpretation Comments ALCOHOL (test code < 0.003 G/dL <0.003 Ethyl Alc ohol = ALC) Interpretation: 0.100 gm/dL - Legally Intoxic ated 0.300-0.40 0 gm/dL - Severely Into xicated >0.400 gm/dL - Potentially LethalResults a re for Medical purpose s only, and not for Leg al orEmployment ev aluation purposes. DRUGS OF ABUSE SCREEN [id number] 12:06:00 Test Item Value Reference Range Interpretation [...] ed for non-medical pur poses. CBC W/O [id number] 11:59:00 Test Item Value Reference Range Interpretation [...] 9.9 fL 7.0-9.0 H = MPV) URINALYSIS [id number] 11:57:00 Test Item Value Reference Range Interpretation [...] 4+ /HPF NONE = YEASTUBD) HEPATIC FUNCTION [id number] 11:50:00 Test Item Value Reference Range Interpretation [...] (test code = CK) 35-232 HCG SERUM [id number] 11:50:00 Test Item Value Reference Range Interpretation Comments HCG SERUM QUAL (test code = SERUM NEGATIVE NEGATIVE HCGQL) THYROID STIMULATING [id number] 11:50:00 Test Item Value Reference Range Interpretation Comments THYROID STIMULATING HORMONE (test code 0.42-5.47 = TSH) [id number] 11:50:00 Test Item Value Reference Range Interpretation Comments ACETAMINOPHEN (test code = ACET) ug/mL 10-30 [id number] 11:50:00 Test Item Value Reference Range Interpretation Comments SALICYLATE (test code = JANETH) mg/dL 2.8-20.0 [id number] 11:50:00 Test Item Value Reference Range Interpretation Comments ALCOHOL (test code = ALC) G/dL <0.003 CHEMISTRY 8 [id number] 11:32:00 Test Item Value Reference Range Interpretation [...] ML/MIN (test code = GFRBED) CHEMISTRY 8 [id number] 11:32:00 Test Item Value Reference Range Interpretation Comments ISTAT-SODIUM (test 142 MMOL/L 134-147 N code = NAP) ISTAT-POTASSIUM (test 3.1 MMOL/L 3.4-5.0 L code = KP) ISTAT-CHLORIDE (test 105 MMOL/L 100-108 N Perform ed by code = CLP) certified opera tor at [facility] ISTAT CARBON DIOXIDE 22.0 mmol/L 21-33 N [...]
--- OUTSIDE RECORDS SUMMARY | 2020-06-21 18:20 | XMS REPORT | Summary of Care ---
:1995 Author Organization [facility] - [facility] Address [address] [place] [address] Care Team Providers Name Role Phone Marichuy De Santiago Primary Care Provider Reason for Referral Other (Routine) Status Reason Specialty Diagnoses / Referred By Referred To Procedures Contact Contact New Request Diagnoses Submandibular abscess Jordon Gomez Roger Procedures Discharge Follow-up: Specialty Provider JORDON GOMEZ; Other - See Tyrone R, AKIRA R, DDS [address] [facility] [address] [place] [id number] Phone: Fax: Radiology Services (STAT) Status Reason Specialty Diagnoses / Referred By Referred To Procedures Contact Contact New Request Diagnostic Diagnoses Submandibular abscess Patricia, Radiology Procedures Orthopantogram, Teeth Jordon Reno DDS [address] [place] [address] Reason for Visit Auth/Cert Status Reason Specialty Diagnoses / Procedures Referred By Chito reis Referred To Contact Surgery Diagnoses Submandibular abscess odontogenic abscess Ritesh [address] [place] [address] Phone: Fax: Encounter Details Date Type Department Care Team Description 06/18/2020 - Hospital Encounter Surgery (RITESH 9C) Patricia Submandibular abscess 06/19/2020 [address] [facility] [place] [address] [phone] [id number] [place], [place] [id number] Allergies Active Allergy Reactions Severity Noted Date Comments Escitalopram Oxalate Unknown - See comments 03/03/2019 documented as of this encounter (statuses as of 06/19/2020) Medications Medication Sig Dispensed Refills Start Date End Date Status ibuprofen 600 mg Take 1 tablet 30 tablet 1 06/19/2020 Active tabletIndications: by mouth Submandibular every 6 (six) abscess hours as needed for Pain (scale 1-3) or Pain (scale 4-6). chlorhexidine 0.12 % Swish and 473 mL 0 06/19/2020 Active mouthwashIndications spit out 15 : Submandibular mL 2 (two) abscess times daily. amoxicillin-pot Take 1 tablet 21 tablet 0 06/19/2020 Active clavulanate 500 mg by mouth 3 (AUGMENTIN) 500-125 (three) times mg daily for 7 tabletIndications: days. Submandibular abscess acetaminophen Take 1 tablet 30 tablet 1 06/19/2020 A ctive (TYLENOL EXTRA by mouth STRENGTH) 500 mg every 6 (six) tabletIndications: hours as Submandibular needed for abscess Pain. acetaminophen-codein Take 1 tablet 15 tablet 0 03/04/201905/22 Discontinued e 300-30 mg by mouth tabletIndications: every 6 (six) Lower abdominal hours as pain, Cyst of ovary, needed for unspecified Pain (scale laterality 4-6) or Pain (scale 7-10). ibuprofen 800 mg Take 1 tablet 20 tablet 0 05/18/2019 06/19/19 21 Discontinued tabletIndications: by mouth Abdominal pain, every 8 unspecified (eight) hours abdominal location, as needed for Cyst of right ovary Pain (scale 4-6). documented as of this encounter (statuses as of 06/19/2020) Active Problems Problem Noted Date Submandibular abscess 06/18/2020 documented as of this encounter (statuses as of 06/19/2020) Social History Tobacco Use Types Packs/Day Years Used Date Never Smoker Smokeless Tobacco: Never Used Sex Assigned at Date Recorded Not on file COVID-19 Exposure Response Date Recorded In the last month, have you been in contact with No / Unsure 06/18/2020 1:25 AM EXTRUDER OPERATOR VERTICAL someone who was confirmed or suspected to have Coronavirus / COVID-19? documented as of this encounter Last Filed Vital Signs Vital Sign Reading Time Taken Comments Blood Pressure 108/70 06/19/2020 11:30 AM EXTRUDER OPERATOR VERTICAL Pulse 81 06/19/2020 11:30 AM EXTRUDER OPERATOR VERTICAL Temperature 36.7 C (98.1 F) 06/19/2020 11:30 AM EXTRUDER OPERATOR VERTICAL Respiratory Rate 12 06/19/2020 11:30 AM EXTRUDER OPERATOR VERTICAL Oxygen Saturation 100% 06/19/2020 11:30 AM EXTRUDER OPERATOR VERTICAL Inhaled Oxygen Concentration - - Weight 65.8 kg (145 lb) 06/18/2020 2:00 PM EXTRUDER OPERATOR VERTICAL Height 173 cm (5' 8.11") 06/18/2020 1:00 AM EXTRUDER OPERATOR VERTICAL Body Mass Index 21.98 06/18/2020 1:00 AM EXTRUDER OPERATOR VERTICAL documented in this encounter Discharge Summaries Issa Camacho DDS - 06/19/2020 7:33 AM CST Date of Service: 06/19/2020 07:33 ADMIT DATE: 06/18/2020 DISCHARGE DATE: 06/19/2020 ATTENDING MD: Jordon Gomez DDS RESIDENT MD: Issa Camacho DDS PCP: Marichuy De Santiago REASON FOR ADMISSION: Left sided facial swelling FINAL DIAGNOSIS: (the reason, after study, for admitting the patient to the hospital) - left submandibular space abscess - left sublingual space infection - carious/partial bony impacted tooth #17 SECONDARY DIAGNOSIS: (any diagnosis that, on this admission, required clinical evaluation, therapeutic treatment, diagnostic procedures, extended hospital stay, or additional nursing care/monitoring) Past Medical History: Diagnosis Date Anxiety PRINCIPAL PROCEDURE: Procedure(s): FACIAL ABSCESS INCISION AND DRAINAGE TOOTH EXTRACTION ADDITIONAL PROCEDURES: - None SIGNIFICANT LAB/X-RAYS: Hospital Encounter on 06/18/20 Orthopantogram, Teeth Narrative EXAM: ORTHOPANTOGRAM COMPARISON: None HISTORY: 25-year-old female. Odontogenic infection. FINDINGS: The images demonstrate no acute bony fracture or dislocation. A dental caries involving the third left mandibular molar is seen, along with an associated periapical lucency. Impression Left third mandibular molar dental caries with associated periapical lucency. Preliminary Report Dictated by Resident: Tawnya Eddy I, Jerrell Monahan MD., have reviewed this study and agree with the above report. Labs: CBC BMP PT/INR WBC (10*3/L) Date Value 06/19/2020 8.46 NA (mmol/L) Date Value 05/18/2019 139 No results found for: PT RBC (10*6/L) Date Value 06/19/2020 3.55 (L) K (mmol/L) Date Value 05/18/2019 4.2 No results found for: PTINR PLT (10*3/L) Date Value 06/19/2020 331 CALCIUM (mg/dL) Date Value 05/18/2019 9.9 HGB (g/dL) Date Value 06/19/2020 10.4 (L) CL (mmol/L) Date Value 05/18/2019 104 aPTT HCT (%) Date Value 06/19/2020 31.1 (L) BUN (mg/dL) Date Value 05/18/2019 15 No results found for: APTTPAT CREATININE (mg/dL) Date Value 05/18/2019 0.66 HOSPITAL COURSE: Briefly, Elena Del Valle is a 25 year old female with Past Medical History: Diagnosis Date Anxiety who was transferred to [facility] on 06/18/2020 after with complaints of left sided facial swelling. The patient was found to have above diagnoses. Course of treatment included above procedures without complication and IV abx. The patients condition improved and the patient is medically stable for discharge home. Please note the following changes to the patients home medication regimen: pain meds, abx, peridex. CONDITION: good DIET: regular ACTIVITY: as tolerated DISCHARGE MEDICATIONS: Medication List START taking these medications acetaminophen 500 mg tablet Commonly known as: Tylenol Extra Strength Take 1 tablet by mouth every 6 (six) hours as needed for Pain. amoxicillin-pot clavulanate 500 mg 500-125 mg tablet Commonly known as: Augmentin Take 1 tablet by mouth 3 (three) times daily for 7 days. chlorhexidine 0.12 % mouthwash Commonly known as: PERIDEX Swish and spit out 15 mL 2 (two) times daily. CHANGE how you take these medications ibuprofen 600 mg tablet Commonly known as: IBU Take 1 tablet by mouth every 6 (six) hours as needed for Pain (scale 1-3) or Pain (scale 4-6). What changed: medication strength how much to take when to take this reasons to take this STOP taking these medications acetaminophen-codeine 300-30 mg tablet Commonly known as: TYLENOL #3 Where to Get Your Medications These medications were sent to [facility]/pharmacy #[id number] - [place], [place] - [address] [place] [address] [address] acetaminophen 500 mg tablet amoxicillin-pot clavulanate 500 mg 500-125 mg tablet chlorhexidine 0.12 % mouthwash ibuprofen 600 mg tablet WOUND CARE: - Resume showering normally - [place] teeth 4 times per day - Sutures will dissolve on their own in about 7-10 days - Oozing is to be expected, firmly bite on gauze to stop oozing TYPE OF DISCHARGE: Discharged: Home FOLLOW-UP APPOINTMENT: Follow up [facility] on 06/29/20. Call [phone] to schedule an appointment. Discharge Orders Regular Diet; Texture: Regular. Texture Regular. Diabetic: No Discharge Condition - Discharge Condition: GOOD Discharge Activity Discharge Activity: As Tolerated Discharge Follow-up: Specialty Provider JORDON GOMEZ; Other - See Comment Order Comments: Follow up [facility] on 06/29/20. Call [phone] to schedule an appointment. To Provider: JORDON GOMEZ [[id number]] Patient's Preferred Location: [place] Discharge Disposition: HOME, (AHR) When (Patients with risk for unplanned readmission score over 16 or those noted as Hospital Dependent should follow up within 7 days with PCP or primary DX specialist): Other - See Comment Risk of Unplanned Readmission:( Score greater than 16 indicates high risk) 4 Discharge Instructions Order Comments: - Resume showering normally - [place] teeth 4 times per day - Sutures will dissolve on their own in about 7-10 days - Oozing is to be expected, firmly bite on gauze to stop oozing - Take all meds as prescribed. Complete antibiotic course until all pills are gone. - Maintain follow up appointment No VTE Prophylaxis given- Patient low risk for VTE; Not ordered during hospitalization UDER OPERATOR VERTICAL Associated attestation - Jordon Gomez DDS - 06/19/2020 9:53 AM CSTI personally examined the patient on 06-19-[address] Camacho's resident note as written . I actively participated in the decision-making process. Please see the resident's note for additional details. documented in this encounter Discharge Instructions AttachmentsThe following attachments cannot be sent through Care Everywhere. Dental Abscess with Facial Cellulitis (Libyan)Chlorhexidine oral rinse (Libyan)Amoxicillin; Clavulanic Acid tablets (Libyan)documented in this encounter Progress Notes Lilliam Carey RN - 06/19/2020 11:17 AM EXTRUDER OPERATOR VERTICAL Care Management Discharge Disposition Note (DCDN) 5-2-1 Interventions: Disease specific education;Teach back;Intensive medication reconciliation/management;Clear discharge plan;Follow-up appointments 5-2-1 Providers: Control And Recovery Special Tactics/Farm Equipment Operator;Physician;Nurse 5-2-1 Patient Capacity Improvements: Transportation arrangements Discharge Plan for ongoing care and services: Patient Choice completed for referred services: Discussed with patient/patients family involved in decision making: Patient or family caregiver understands, and agrees with discharge plan Patient's family or support contact: Мария Sahnt, step mother ([phone]) Discharge Plan: Receiving facility was provided the following clinical documentation at discharge- CM Facesheet, Consult notes, Labs, Progress Notes, MAR: DME location: Durable Medical Equipment: Home Health location: Discharge location(s): Community resources/referrals made or provided to patient: No Resources/Referrals: Mental Status: Alert & Oriented to Person,Place & Time Psychosocial issues and/or concerns resulting in patient being a high risk for re-admission: Manage ADL indepentdly: Yes Living Arrangement: Home Address of living arrangement: [address] [place] [id number] Funding Resources: Self Pay Has patient been referred to [facility]? Nursing informed of discharge plan: No CHP referral sent? No CM medication request completed (if appropriate): N/A PCP: Yes Dr. Marichuy De Santiago Transportation: Private Vehicle Discharge Medications Will the patient be able to obtain his medications? Yes Does the patient have transportation to to obtain the prescription medications? Yes Expected discharge date: 06/19/20 Time: 1400 Name of RN informed: Additional Information: Patient reports that she will be discharging back to [facility]. Bina from facility will pick patient up at 1400. / Name & Contact number: Lilliam Carey RN Ph. [phone] The following information has been provided to the facility noted above: reason for the patient discharge or transfer; patients physical and psychosocial status; summary of care, treatment, servicesprovided to patient; and the patient progress toward goals. UDER OPERATOR VERTICAL Lilliam Carey RN - 06/19/2020 11:09 AM CSTCare Management Social Functional Assessment Patient Name: Elena Del Valle Age: [age] year old Sex: female Previous admit date: N/A Current diagnosis and co-morbidities: Submandibular abscess [K12.2] Readmission Questions: Was patient discharged from any acute care hospital within the last 30 days: No Social Functional Assessment: Primary language spoken/preferred: Libyan Mental Status: Alert & Oriented to Person,Place & Time Information given by: Self Patient's support system: Parent Name and number of support system: parul Lopez mother ([phone]); Edelmira Valadez, mother ([phone]) Primary Bar Hostess: Self MPOA: No Living Arrangement: Home Address of living arrangement : [address] [place] [address] Persons living in home: Self;Parent Names & numbers of persons living in home: parul Lopez mother ([phone]) Barriers to returning home: None Baseline functional status- ambulation: Independent Functional status-baseline personal care: Independent Baseline functional status- driving: Independent Baseline functional status- grocery shopping: Independent Functional status-baseline housekeeping: Independent Functional status-baseline meal prep: Independent Current functional status same as prior: Yes Do you have a PCP?: Yes Name of PCP: Dr. Marichuy De Santiago Home Health Care Agency: No Provider Services: No DME Company: No Equipment: None Hemodialysis: No Funding Resources: Self Pay Prescription coverage plan: Self Pay Pharmacy where meds are filled: Other Other pharmacy: [facility] [place] Anticipated services prior to disharge: Continue Medical Eval;Lab Values;Reassess prior to discharge Expected mode of discharge transportation: Personal vehicle;Other Other expected mode of transportation: [employer] Additional Recommendations for DC: Patient will dc back to detox facility. Additional info required for discharge planning: Pending medical evaluation Recommended discharge plan: Return to facility SFA Complete: Social Functional Assessment complete: Yes Alcohol Use Screening (AUDIT-C) How often do you have a drink containing alcohol?: 4 or more times a week SCORE: 4 How many drinks containing alcohol do you have on a typical day when you are drinking?: 5 or 6 drinks(beer or vodka) How often do you have six or more drinks on one occasion?: Daily or almost daily Total Score (AUDIT-C): 10 Did patient elect to have resources provided: Yes Actions taken: Provided support(patient currently in detox facility) Any issues or concerns with obtaining/affording your medications at home: no. Are you or your support system able to apple picker medications at discharge: yes. Describe: patient is able to obtain her meds. Role of Care Management explained. CM met with patient at the bedside. Patient states she is in a detox program for her drinking and plans to discharge back to facility upon medical clearance. 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 Admission Chief Complaint: The patients chief complaint(s) documented on 06/18/[address] Camacho was transfer for left facial swelling. PMH/PSH: Past Medical History: Diagnosis Date Anxiety Past Surgical History: Procedure Laterality Date RHINOPLASTY Current Medical Status: I have reviewed Dr. Camacho's H&P note dated today and additional EPIC documentation for an understanding of the patients current medical condition and plan of care. Elena Del Valle is a 25 year old female with a PMH as listed was a direct transfer from [facility] for evaluation and treatment of left-sided facial swelling. Patient is currently s/p intraoral incision and drainage of left submandibular and sublingual spaces. General: Edema (-) Ascites (-) Para or Quadriplegia (-) Amputation (-) Wounds (-) (e.g., vascular, diabetic, burn, pressure) Trauma (-) GI and Nutrition Related Findings: Nausea (-) Vomiting (-) Constipation (-) Diarrhea (-) Abdominal Pain (-) Difficulty: Chewing (-) Swallowing (+, odynophagia) GI tract alteration (-) (e.g., h/o bariatric surgery, ostomy, resection, etc.) Alternative means of nutrition (-) (e.g., PEG/PEJ, TPN, DHT, etc.) Medications: I have reviewed the medications currently ordered in the EMR located under the medications and MAR tabs. Current medications include: Current Facility-Administered Medications: ampicillin-sulbactam (UNASYN) 3 g in NaCl 0.9% (NS) 100 mL MINI-BAG, 3 g, IV Piggyback, Q6H ABX, Issa Camacho DDS, 3 g at 06/18/20 0354 chlorhexidine (PERIDEX) 0.12 % mouthwash 15 mL, 15 mL, Oral (Swish And Spit Out), BID, Issa Camacho DDS HYDROcodone-acetaminophen (NORCO 5) 5-325 mg tablet 1 tablet, 1 tablet, Oral, Q6HPRN, Issa Camacho DDS, 1 tablet at 06/18/20 0621 ibuprofen (IBU) tablet 600 mg, 600 mg, Oral, Q6H, Issa Camacho DDS, 600 mg at 06/18/20 0621 lactated ringers IV infusion 1,000 mL, 1,000 mL, IV Infusion, CONTINUOUS, Issa Camacho DDS,Last Rate: 100 mL/hr at 06/18/20 0600, New Bag at 06/18/20 0829 lactated ringers IV infusion 1,000 mL, 1,000 mL, IV Infusion, CONTINUOUS, Vinita Sanderson MD LORazepam (ATIVAN) injection 0.5 mg, 0.5 mg, Slow IV Push, QIDPRN, Issa Camacho, DDS morpHINE injection 4 mg, 4 mg, Slow IV Push, Q3HPRN x 48 Hours, Issa Camacho DDS, 4 mg at 06/18/20 0531 ondansetron (ZOFRAN (PF)) injection 4 mg, 4 mg, Slow IV Push, Q4HPRN, Issa Camacho DDS, 4 mg at 06/18/20 0843 sennosides-docusate sodium (SENOKOT-S) 8.6-50 mg per tablet 1 tablet, 1 tablet, Oral, DAILY, Issa Camacho DDS Lab and Medical Test Results: [facility] data was reviewed. Nutrition Assessment: Age: [age] year old Sex: Female Ht: 173 cm Wt: 65.8 kg BMI: 21.9 kg/m^2 Wt History: Wt Readings from Last 10 Encounters: 06/18/20 65.8 kg (145 lb) 05/18/19 70.3 kg (155 lb) 03/03/19 68 kg (149 lb 14.6 oz) Current Dietary Order(s): Clear Liquid Diet; Food Sensitivity Modifiers: None. EMR documented food allergies/intolerance/cultural preferences: NKFA Calculated Daily Nutritional Needs: Calories: 1875 kcal/day = 28 kcal/kg current weight Protein: 18% of kcal need/day = 84 g/day = 1.2 g/kg current weight Fluid: 2.3 L/day or per MD; adjust per acute needs Nutrition and Diet History: The patient consumed 100% of Clear Liquid Diet tray after procedure. Shereported last full meal was Saturday or Saturday. Malnutrition Assessment: Nutritional Diagnosis: None SGA Rating: At Risk Nutrition Plan of Care: Interventions: Recommend not to exceed Clear Liquid longer than 3-5 days without planned nutrition intervention; Advance diet when medically appropriate and as tolerated by the Pt (Initial Goal: Full Liquid > Regular Diet). Goals: The patient's documented intake is no less than 50% of provided meals during admission. Nutrition Monitoring and Evaluation: A registered dietitian will f/u to report nutrition related information and to revise the recommended nutrition intervention(s) if necessary; please page with questions or concerns, thank-you. Anticipated Discharge Needs: Undetermined at this time - will reassess upon follow up. Elissa Gabriel MS, RD, LD, [facility] Clinical Dietitian Office: [id number] signed by Elissa Gabriel at 06/18/2020 2:27 PM EXTRUDER OPERATOR VERTICAL documented in this encounter H&P Notes Issa Camacho DDS - 06/18/2020 1:42 AM CST OMFS H&P Chief Complaint: transfer for left facial swelling HPI Elena Del Valle is a 25 year old female with a PMH as listed was a direct transfer from [facility] for evaluation and treatment of left-sided facial swelling. Patient reports swelling started approximately 5 ago. She received amoxicillin from a SOUVENIR ASSEMBLER without improvement in symptoms. Patient endorses painlocalized to left posterior mandible, visited OSH and was pain medication and 600 mg clindamycin IV. Denies any facial weakness or numbness. CT scan performed at OSH demonstrated left submandibular fluid collection and carious tooth #17. Currently denies any difficulty managing secretions, dysphagia or dyspnea, however, endorses odynophagia. Histories Past Medical History: Diagnosis Date Anxiety Past Surgical History: Procedure Laterality Date RHINOPLASTY History reviewed. No pertinent family history. Social History Socioeconomic History Marital status: Single Spouse name: Not on file Number of children: Not on file Years of education: Not on file Highest education level: Not on file Occupational History Not on file Social Needs Financial resource strain: Not on file Food insecurity Worry: Not on file Inability: Not on file Transportation needs Medical: Not on file Non-medical: Not on file Tobacco Use Smoking status: Not on file Substance and Sexual Activity Alcohol use: Not on file Drug use: Not on file Sexual activity: Not on file Lifestyle Physical activity Days per week: Not on file Minutes per session: Not on file Stress: Not on file Relationships Social connections Talks on phone: Not on file Gets together: Not on file Attends hindu service: Not on file Active member of club or organization: Not on file Attends meetings of clubs or organizations: Not on file Relationship status: Not on file Intimate partner violence Fear of current or ex partner: Not on file Emotionally abused: Not on file Physically abused: Not on file Forced sexual activity: Not on file Other Topics Concern Not on file Social History Narrative Not on file Review of Systems Constitutional: negative Skin: negative Eyes: negative Ears, nose, mouth, throat: (+) per HPI Cardio: negative Resp: negative GI: negative : negative MARII: negative Neuro: negative Psych: negative Endo: negative Hem/Lymphatic: negative Allergic/Immunologic: negative Physical Exam BP 103/66 | Pulse 74 | Temp 36.4 C (97.5 F) (Oral) | Resp 16 | Wt 65.8 kg (145 lb) | SpO2 99% General Appearance: NAD Skin: No rashes, pain, abscess, masses Head/Neck: left lower facial edema, firm with soft periphery, +TTP, inability to fully palpate inferior border of mandible TMJ: moderate trismus with ARTUR 14 mm Eyes: PERRLA, EOM intact Ears: No hearing loss, pain Nose: No discharge, epistaxis, rhinorrhea Throat: Normal mucosa, uvula midline and mobile, normal gag reflex Lip: No swelling, no ulcerations, normal mucosa Oral Mucosa: left posterior mandibular erythema, otherwise, no white lesions, no red lesions, no swelling, no ulcerations Teeth: Fair repair, partially erupted tooth #17 Tongue/FOM: No swellings, ulcerations, non-tender to palpation, gag reflex present Lungs: Symmetric chest rise, non-labored breathing Heart: Regular rate and rhythm Abdomen: ND Musculoskeletal: No edema, cyanosis or clubbing Neurological: Alert and oriented x3, CN II-XII grossly intact Laboratory I have reviewed the patient's labs. Significant abnormals are below: Radiology I have reviewed the patient's OSH report - positive for carious tooth #17 and left submandibular fluid collection OPG pending Assessment/Diagnosis ASA: II Mallampati: IV Past Medical History: Diagnosis Date Neal Del Valle is a 25 year old female with PMH above who was transferred from [facility] for evaluation and treatment of left sided facial swelling. 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 Patient may require formal I&D pending faculty discussion - Pancho 3 q6h - Pharmacy to review OSH labs in EPIC media - [place] 5 q4hPRN, Morphine 4mg IV q3hPRN for breakthrough pain - IVF: LR @ 100ml/hr - Zofran 4mg IV q6hPRN - NPO diet - peridex - daily labs - OPG STAT - DVT ppx: SCDs Please page OMFS resident ribbon weaver, ([phone]), with any questions or concerns. UDER OPERATOR VERTICAL Associated attestation - Jordon Gomez DDS - 06/18/2020 7:25 AM CSTI personally examined the patient on 06-18-[address] Camacho's resident note as written . I actively participated in the decision-making process. Please see the resident's note for additional details. documented in this encounter Procedure Notes Jordon Gomez DDS - 06/19/2020 9:50 AM CSTProcedure(s): SURGICAL EXT TOOTH PARTIAL SHAQUILLE IMP; INCISION AND DRAINAGE ORAL CAVITY (SHX)1. Tooth #17 2. I&D left submandibular space and lingual dreal-mehrj-[id number] signed by Jordon Gomez DDS at 06/19/2020 9:52 AM YAMINISIssa mandel DDS - 06/18/2020 8:59 AM CSTOMFS BRIEF OPERATIVE NOTE: Pre-op Diagnosis: - left submandibular space abscess - left sublingual space infection - carious/partial bony impacted tooth #17 Post-op Diagnosis: - left submandibular space abscess - left sublingual space infection - carious/partial bony impacted tooth #17 Procedure: - intraoral incision and drainage of left submandibular and sublingual spaces - JESSICA #17 Attending: Jordon Gomez DDS Surgeon: Vonnie Skin Pass Operator: Doug Anesthesia: GETA 6.8 cc of 2% Lidocaine with 1:100K epi 10 cc of 0.25% Marcaine with 1:200K epi EBL: <10 cc IVF: see anesthesia records UOP: not measured Specimens: none Complications: none Disposition: The patient was extubated in the OR, and taken to PACU in stable condition. UDER OPERATOR VERTICAL Associated attestation - TysoneffieJordon DDS - 06/19/2020 9:52 AM CSTI was present for and supervised the entire procedure(s).documented in this encounter Miscellaneous Notes Nursing Note - Carmella Chin RN - 06/19/2020 3:31 PM CSTPatient to be discharge from unit, waiting for transportation. No distress noted. AVS printed and all Rx's was sent to pharmacy.Patient instructed to take all medications as directed by provider. Discussed discharge instructions with the patient and all questioned fully answered. Teaching done on antibiotics and wound care. Shows readiness to learn. Individual is able to teach back and verbalizes und erstanding of teaching provided. Patient will call provider's office if any problems arise. are Plan - Carmella Chin RN - 06/19/2020 10:56 AM EXTRUDER OPERATOR VERTICAL Problem: Pain Goal: Control of pain at or below patient's documented comfort goal 06/19/2020 1056 by Carmella Chin RN Outcome: Adequate for discharge 06/19/2020 1016 by Carmella Chin RN Outcome: Progressing as expected Goal: Reduction in pain sensation 06/19/2020 1056 by Carmella Chin RN Outcome: Adequate for discharge 06/19/2020 1016 by Carmella Chin RN Outcome: Progressing as expected Problem: Infection Risk Goal: Absence of infection 06/19/2020 1056 by Carmella Chin RN Outcome: Adequate for discharge 06/19/2020 1016 by Carmella Chin RN Outcome: Progressing as expected Problem: Discharge Planning Goal: Absence of venous thromboembolism 06/19/2020 1056 by Carmella Chin RN Outcome: Adequate for discharge 06/19/2020 1016 by Carmella Chin RN Outcome: Progressing as expected Goal: Adequate for discharge 06/19/2020 1056 by Carmella Chin RN Outcome: Adequate for discharge 06/19/2020 1016 by Carmella Chin RN Outcome: Progressing as expected Goal: Effective communication 06/19/2020 1056 by Carmella Chin RN Outcome: Adequate for discharge 06/19/2020 1016 by Carmella Chin RN Outcome: Progressing as expected are Nikunj - Carmella Chin RN - 06/19/2020 10:16 AM EXTRUDER OPERATOR VERTICAL Problem: Pain Goal: Control of pain at or below patient's documented comfort goal Outcome: Progressing as expected Goal: Reduction in pain sensation Outcome: Progressing as expected Problem: Infection Risk Goal: Absence of infection Outcome: Progressing as expected Problem: Discharge Planning Goal: Absence of venous thromboembolism Outcome: Progressing as expected Goal: Adequate for discharge Outcome: Progressing as expected Goal: Effective communication Outcome: Progressing as expected are Nikunj - Mariposa Brady RN - 06/19/2020 7:17 AM EXTRUDER OPERATOR VERTICAL Problem: Pain Goal: Control of pain at or below patient's documented comfort goal Outcome: Progressing as expected Goal: Reduction in pain sensation Outcome: Progressing as expected Problem: Infection Risk Goal: Absence of infection Outcome: Progressing as expected Problem: Discharge Planning Goal: Absence of venous thromboembolism Outcome: Progressing as expected Goal: Adequate for discharge Outcome: Progressing as expected Goal: Effective communication Outcome: Progressing as expected UDER OPERATOR VERTICAL Care Plan - Carmella Chin RN - 06/18/2020 1:38 PM EXTRUDER OPERATOR VERTICAL Problem: Pain Goal: Control of pain at or below patient's documented comfort goal Outcome: Progressing as expected Goal: Reduction in pain sensation Outcome: Progressing as expected Problem: Infection Risk Goal: Absence of infection Outcome: Progressing as expected Problem: Discharge Planning Goal: Absence of venous thromboembolism Outcome: Progressing as expected Goal: Adequate for discharge Outcome: Progressing as expected Goal: Effective communication Outcome: Progressing as expected are Plan - Sharon Alvarez RN - 06/18/2020 7:44 AM EXTRUDER OPERATOR VERTICAL Problem: Pain Goal: Control of pain at or below patient's documented comfort goal Outcome: Progressing as expected Goal: Reduction in pain sensation Outcome: Progressing as expected Problem: Infection Risk Goal: Absence of infection Outcome: Progressing as expected Problem: Discharge Planning Goal: Absence of venous thromboembolism Outcome: Progressing as expected Goal: Adequate for discharge Outcome: Progressing as expected Goal: Effective communication Outcome: Progressing as expected UDER OPERATOR VERTICAL documented in this encounter Plan of Treatment Health Maintenance Due Date Last Done Comments VARICELLA VACCINES (1 of 2 - 2-dose childhood series) 1994 PNEUMOCOCCAL 0-64 YEARS COMBINED SERIES (1 of 3 - 1999 PCV13) Depression Screening 2005 SARS-CoV-2 (COVID-19) Vaccine (1 of 2) 2009 DTaP,Tdap,and Td Vaccines (1 - Tdap) 01/08/2012 PAP SMEAR 2014 INFLUENZA VACCINE (#1) 2020 documented as of this encounter Procedures Procedure Name Priority Date/Time Associated Diagnosis Comme nts EXTRA TUBE LT. GREEN Routine 06/19/2020 5:24 AM EXTRUDER OPERATOR VERTICAL CBC WITH DIFF Routine 06/19/2020 5:24 Results fo r this AM EXTRUDER OPERATOR VERTICAL procedure are i n the results section. XR ORTHOPANTOGRAM STAT 06/18/2020 2:44 Submandibular absce ss Results for this TEETH AM EXTRUDER OPERATOR VERTICAL procedure are i n the results section. documented in this encounter Results EXTRA TUBE LT. GREEN (06/19/2020 5:24 AM EXTRUDER OPERATOR VERTICAL) Specimen Blood Performing Organization Address City/State/Zipcode Phone Number [facility] CLIA: [id number] [place] [address] [place] [address] CBC with Differential (06/19/2020 5:24 AM EXTRUDER OPERATOR VERTICAL) Pathologist Sig nature WBC 8.46 4.30 - 11.10 [facility] 10*3/L SERVICES RBC 3.55 (L) 3.93 - 5.25 [facility] 10*6/L SERVICES HGB 10.4 (L) 11.6 - 15.0 [facility] g/dL SERVICES HCT 31.1 (L) 35.7 - 45.2 % [facility] MCV 87.6 80.6 - 95.5 fL [facility] MCH 29.3 25.9 - 32.8 pg [facility] MCHC 33.4 31.6 - 35.1 [facility] g/dL SERVICES RDW-SD 39.7 39.0 - 49.9 fL [facility] RDW-CV 12.3 12.0 - 15.5 % [facility] PLT 331 166 - 358 [facility] 10*3/L SERVICES MPV 10.0 9.5 - 12.9 fL [facility] NRBC/100 WBC 0.0 0.0 - 10.0 /100 [facility] WBCs SERVICES NRBC x10^3 <0.01 10*3/L [facility] GRAN MAT (NEUT) % 70.0 % [facility] IMM GRAN % 0.20 % [facility] LYMPH % 23.8 % [facility] MONO % 5.7 % [facility] EOS % 0.1 % [facility] BASO % 0.2 % [facility] GRAN MAT x10^3(ANC) 5.92 1.88 - 7.09 [facility] 10*3/uL SERVICES IMM GRAN x10^3 <0.03 0.00 - 0.06 [facility] 10*3/uL SERVICES LYMPH x10^3 2.01 1.32 - 3.29 [facility] 10*3/uL SERVICES MONO x10^3 0.48 0.33 - 0.92 [facility] 10*3/uL SERVICES EOS x10^3 <0.03 (L) 0.03 - 0.39 [facility] 10*3/uL SERVICES BASO x10^3 <0.03 0.01 - 0.07 [facility] 10*3/uL SERVICES Specimen Blood - ARM, RIGHT Performing Organization Address City/State/Zipcode Phone Number [facility] CLIA: [id number] [place] [address] [place] [address] Orthopantogram, Teeth (06/18/2020 2:44 AM EXTRUDER OPERATOR VERTICAL) Specimen Impressions Performed At PACS/VR/DOSE Left third mandibular molar dental osmin s with associated periapical lucency. Preliminary Report Dictated by Resident: Tawnya Eddy I, Jerrell Monahan MD., have reviewe d this study and agree with the above report. Narrative Performed At This result has an attachment that is no t available. PACS/VR/DOSE EXAM: ORTHOPANTOGRAM COMPARISON: None HISTORY: 25-year-old female. Odontogenic infection. FINDINGS: The images demonstrate no acute bony fracture or dislo cation. A dental caries involving the third left mandibular molar is se en, along with an associated periapical lucency. Procedure Note [facility], Radiant Results Inft User - 2020 9:06 AM EXTRUDER OPERATOR VERTICAL EXAM: ORTHOPANTOGRAM COMPARISON: None HISTORY: 25-year-old female. Odontogenic infection. FINDINGS: The images demonstrate no acute bony fra cture or dislocation. A dental caries involving the third left mandibul ar molar is seen, along with an associated periapical lucency. IMPRESSION Left third mandibular molar dental osmin s with associated periapical lucency. Preliminary Report Dictated by Resident: Jerrell Cronin MD., have reviewe d this study and agree with the above report. Performing Organization Address City/State/[facility] Phone Number PACS/VR/DOSE documented in this encounter Visit Diagnoses Diagnosis Submandibular abscess - Primary Cellulitis and abscess of face documented in this encounter Administered Medications Medication Order MAR Action Action Date Dose Rate Site ampicillin-sulbactam (UNASYN) 3 g Given 06/19/2020 11:44 AM EXTRUDER OPERATOR VERTICAL 3 g in NaCl 0.9% (NS) 100 mL MINI-BAG 3 g, IV Piggyback, Q6H ABX, First dose on 06/18/20 at 0330, Until Discontinued, 100 mL, Reason for Anti-Infective: Empiric Therapy for Suspected Infection, Empiric Therapy Site: HEENT, Duration of therapy: 7 days Given 06/19/2020 5:17 AM EXTRUDER OPERATOR VERTICAL 3 g Given 06/18/2020 9:56 PM EXTRUDER OPERATOR VERTICAL 3 g chlorhexidine (PERIDEX) 0.12 % mouthwash 15 Given 06/19/2020 8:51 AM EXTRUDER OPERATOR VERTICAL 15 mL mL 15 mL, Oral (Swish And Spit Out), BID, First dose on 06/18/20 at 0800, Until Discontinued, Routine Given 06/18/2020 8:14 PM EXTRUDER OPERATOR VERTICAL 15 mL HYDROcodone-acetaminophen (NORCO 5) 5-325 Given 2020 8:14 PM EXTRUDER OPERATOR VERTICAL 1 tablet mg tablet 1 tablet 1 tablet, Oral, Q6HPRN, Starting 06/18/20 at 0139, Until Discontinued, Routine, Pain (scale 4-6) Given 06/18/2020 1:08 PM EXTRUDER OPERATOR VERTICAL 1 tablet Given 06/18/2020 6:21 AM EXTRUDER OPERATOR VERTICAL 1 tablet ibuprofen (IBU) tablet 600 mg Given 06/19/2020 11:44 AM EXTRUDER OPERATOR VERTICAL 600 mg 600 mg, Oral, Q6H, First dose on 06/18/20 at 0600, Until Discontinued, Routine Given 06/19/2020 5:27 AM EXTRUDER OPERATOR VERTICAL 600 mg Given 06/18/2020 11:50 PM EXTRUDER OPERATOR VERTICAL 600 mg lactated ringers IV infusion 1,000 mL New Bag 06/18/2020 8:29 AM EXTRUDER OPERATOR VERTICAL at 100 mL/hr, 1,000 mL, IV Infusion, CONTINUOUS, Starting 06/18/20 at 0145, Until Discontinued, Routine Dose/Rate Verify 06/18/2020 6:00 AM EXTRUDER OPERATOR VERTICAL 100 mL/hr New Bag 06/18/2020 2:03 AM EXTRUDER OPERATOR VERTICAL 1,000 mL 100 mL/hr lactated ringers IV infusion 1,000 mL at 75 mL/hr, 1,000 mL, IV Infusion, CONT INUOUS, Starting 06/18/20 at 0900, Until Discontinued, Routine, PACU LORazepam (ATIVAN) injection 0.5 mg Given 06/19/2020 8:51 AM EXTRUDER OPERATOR VERTICAL 0.5 mg 0.5 mg, Slow IV Push, QIDPRN, Starting 06/18/20 at 0655, Until Discontinued, Routine, Anxiety Given 06/18/2020 8:14 PM EXTRUDER OPERATOR VERTICAL 0.5 mg Given 06/18/2020 3:44 PM EXTRUDER OPERATOR VERTICAL 0.5 mg morpHINE injection 4 mg Given 06/19/2020 8:51 AM EXTRUDER OPERATOR VERTICAL 4 mg 4 mg, Slow IV Push, Q3HPRN, Starting 06/18/20 at 0139, Until 06/20/20 at 0138, Routine, Pain (scale 7-10) Given 06/18/2020 10:43 PM EXTRUDER OPERATOR VERTICAL 4 mg Given 06/18/2020 6:21 PM EXTRUDER OPERATOR VERTICAL 4 mg ondansetron (ZOFRAN (PF)) injection 4 mg Given 06/18/2020 8:43 AM EXTRUDER OPERATOR VERTICAL 4 mg 4 mg, Slow IV Push, Q4HPRN, Starting 06/18/20 at 0138, Until Discontinued, Routine, Nausea and Vomiting (N/V) Given 06/18/2020 1:56 AM EXTRUDER OPERATOR VERTICAL 4 mg pantoprazole (PROTONIX) EC tablet 20 mg Given 06/19/2020 8:51 AM EXTRUDER OPERATOR VERTICAL 20 mg 20 mg, Oral, DAILY, First dose on 06/19/20 at 0045, Until Discontinued, Routine Given 06/19/2020 5:18 AM EXTRUDER OPERATOR VERTICAL 20 mg sennosides-docusate sodium (SENOKOT-S) Given 06/19/2020 8:51 AM EXTRUDER OPERATOR VERTICAL 1 tablet 8.6-50 mg per tablet 1 tablet 1 tablet, Oral, DAILY, First dose on 06/18/20 at 0900, Until Discontinued, Routine Medication Order MAR Action Action Date Dose Rate Site FENTanyl PF (SUBLIMAZE (PF)) Given 06/18/2020 9:36 AM EXTRUDER OPERATOR VERTICAL 25 mc g injection 25 mcg 25 mcg, Slow IV Push, Q5MIN PRN, 4 doses, Starting 06/18/20 at 0859, Until 06/18/20 at 1011, Routine, Pain (scale 4-6), PACU Given 06/18/2020 9:31 AM EXTRUDER OPERATOR VERTICAL 25 mcg documented in this encounter Additional Health Concerns Infection Onset Date Last Indicated Resolved Time COVID-19 Rule Out 06/18/2020 06/18/2020 documented as of this encounter Advance Directives Name Relationship Healthcare Agent Relationship Co mmunication Edelmira Valadez [facility] Health Care Agent [phone] ( Mobile)
[2020-06-21 22:24] LABS: Absolute Lymphocytes (CBC) 4.3 K/uL (0.7-4.9); Basophils % 1.2 % (0-1.3); Hematocrit 43.6 % (36.0-45.0); Lymphocytes % 47.7 % (15.3-44.8); MPV 7.7 fL (7.6-11.3); RBC Red Blood Cell Count 5.05 M/uL (3.86-4.86)
[2020-06-21 22:32] LABS: Potassium 4.5 mmol/L (3.5-5.1)
[2020-06-21] MEDS ORDERED: HYDROCODONE/APAP 10/325 TAB ONE (22:33)
--- NOTE | 2020-06-21 22:56 | EDPHYS ---
Physician Documentation [facility] Name: Elena Bran Age: 25 yrs Sex: Female : 1995 Arrival Date: 06/21/2020 Time: 18:18 Bed 26 Private MD: ED Physician Marvin Stein HPI: 06/22 00:12 This 25 yrs old Female presents to ER via Ambulatory with complaints of Mouth kb Swelling, Nausea. 00:12 The patient presents with pain, swelling. The problem is located in the lower left kb third molar (#17). Onset: The symptoms/episode began/occurred yesterday. Duration: The symptoms are continuous. Modifying factors: The symptoms are alleviated by nothing, the symptoms are aggravated by nothing. Associated signs and symptoms: Pertinent positives: pain, swelling. Severity of symptoms: At their worst the symptoms were moderate, in the emergency department the symptoms are unchanged. The patient has not experienced similar symptoms in the past. The patient has been recently seen by a physician:. Pt reports she had a tooth pulled at [facility] on Saturday due to an abscess. States she is having pain and slight swelling to area so she wanted to get it checked. Has follow up appt on . Historical: - Allergies: 06/21 19:27 Lexapro; iw - PMHx: 19:27 Asthma; Depression; Anxiety; iw - Immunization history:: Adult Immunizations up to date. - Social history:: Smoking status: Patient denies any tobacco usage or history of. ROS: 06/22 00:10 Constitutional: Negative for fever, chills, and weight loss, Cardiovascular: Negative kb for chest pain, palpitations, and edema, Respiratory: Negative for shortness of breath, cough, wheezing, and pleuritic chest pain, Abdomen/GI: Negative for abdominal pain, nausea, vomiting, diarrhea, and constipation, MS/Extremity: Negative for injury and deformity, Skin: Negative for injury, rash, and discoloration, Neuro: Negative for headache, weakness, numbness, tingling, and seizure. ENT: Positive for Gum pain Exam: 00:11 Constitutional: This is a well developed, well nourished patient who is awake, alert, kb and in no acute distress. Head/Face: Normocephalic, atraumatic. Chest/axilla: Normal chest wall appearance and motion. Nontender with no deformity. No lesions are appreciated. Cardiovascular: Regular rate and rhythm with a normal S1 and S2. No gallops, murmurs, or rubs. Normal PMI, no JVD. No pulse deficits. Respiratory: Lungs have equal breath sounds bilaterally, clear to auscultation and percussion. No rales, rhonchi or wheezes noted. No increased work of breathing, no retractions or nasal flaring. Abdomen/GI: Soft, non-tender, with normal bowel sounds. No distension or tympany. No guarding or rebound. No evidence of tenderness throughout. Skin: Warm, dry with normal turgor. Normal color with no rashes, no lesions, and no evidence of cellulitis. MS/ Extremity: Pulses equal, no cyanosis. Neurovascular intact. Full, normal range of motion. Neuro: Awake and alert, GCS 15, oriented to person, place, time, and situation. Cranial nerves II-XII grossly intact. Motor strength 5/5 in all extremities. Sensory grossly intact. Cerebellar exam normal. Normal gait. 00:11 ENT: Dental exam: pain, that is moderate, specifically in the lower left third molar (#17), slight redness and swelling r/t recent extraction. Vital Signs: 06/21 19:23 BP 115 / 88; Pulse 86; Resp 18; Temp 97.7; Pulse Ox 100% ; Weight 65.77 kg; Height 5 iw ft. 8 in. (172.72 cm); Pain 8/10; 23:00 BP 107 / 80; Pulse 82; Resp 16; Pulse Ox 100% on R/A; zb 19:23 Body Mass Index 22.05 (65.77 kg, 172.72 cm) iw MDM: 20:09 Patient medically screened. kb 06/22 00:10 Data reviewed: vital signs, nurses notes. Data interpreted: Pulse oximetry: on room air kb is 100 %. Interpretation: normal. Counseling: I had a detailed discussion with the patient and/or guardian regarding: the historical points, exam findings, and any diagnostic results supporting the discharge/admit diagnosis, lab results, the need for outpatient follow up, a dentist, to return to the emergency department if symptoms worsen or persist or if there are any questions or concerns that arise at home. 06/21 20:09 Order name: CBC with Diff; Complete Time: 22:28 kb 06/21 20:09 Order name: Basic Metabolic Panel; Complete Time: 22:40 kb 06/21 20:09 Order name: IV Start; Complete Time: 22:14 kb Administered Medications: 06/21 22:19 Drug: [place] 10 mg-325 mg 1 tabs {Note: rass 0.} Route: PO; ca1 23:00 Follow up: Response: No adverse reaction; Pain is decreased zb Disposition: 06/22 06:47 Co-signature as Attending Physician, Marvin Stein MD I agree with the assessment and [facility] plan of care. Disposition: 06/21/20 22:55 Discharged to Home. Impression: Dental Pain s/p extraction. - Condition is Stable. - Discharge Instructions: Dental Dry Socket, Yyou-sf-Sihi, Dental Pain, [id number]-[id number]-[id number], Dental Extraction, Care After, Xlgs-ri-Jerr. - Medication Reconciliation Form, Thank You Letter, Antibiotic Education, Prescription Opioid Use form. - Follow up: Emergency Department; When: As needed; Reason: Worsening of condition. Follow up: Private Physician; When: 2 - 3 days; Reason: Recheck today's complaints, Continuance of care, Re-evaluation by your physician. Signatures: Dispatcher [employer] EDYahaira Berger, REINFORCING BAR SETTER-C REINFORCING BAR SETTER-Ckb Marvin Stein MD MD cha Williams, Irene, RN ABI Vicky Lara RN RN ca1 Rosy, Forest Irina Mccormick RN zb Corrections: (The following items were deleted from the chart) 06/21 23:09 22:55 06/21/2020 22:55 Discharged to Home. Impression: Dental Pain s/p extraction. dh4 Condition is Stable. Forms are Medication Reconciliation Form, Thank You Letter, Antibiotic Education, Prescription Opioid Use. Follow up: Emergency Department; When: As needed; Reason: Worsening of condition. Follow up: Private Physician; When: 2 - 3 days; Reason: Recheck today's complaints, Continuance of care, Re-evaluation by your physician. kb 06/22 00:13 00:11 ENT: Dental exam: pain, that is moderate, specifically in the lower left third kb molar (#17), recent extraction, kb
--- NOTE | 2020-06-21 22:56 | ER ---
Nurse's Notes [facility] Name: Elena Bran Age: 25 yrs Sex: Female : 1995 Arrival Date: 06/21/2020 Time: 18:18 Bed 26 Private MD: Diagnosis: Dental Pain s/p extraction Presentation: 06/21 19:23 Chief complaint: Patient states: I had a tooth pulled on Saturday because I had an iw abscess. Today the pain and swelling started getting worse and I feel sick. Coronavirus screen: At this time, unable to obtain information related to travel outside the [place] At this time, the client does not indicate any symptoms associated with coronavirus-19. Ebola Screen: Patient negative for fever greater than or equal to 101.5 degrees Fahrenheit, and additional compatible Ebola Virus Disease symptoms Patient denies exposure to infectious person. Patient denies travel to an Ebola-affected area in the 21 days before illness onset. No symptoms or risks identified at this time. Initial Sepsis Screen: Does the patient meet any 2 criteria? No. Patient's initial sepsis screen is negative. Does the patient have a suspected source of infection? No. Patient's initial sepsis screen is negative. Risk Assessment: Do you want to hurt yourself or someone else? Patient reports no desire to harm self or others. Onset of symptoms was June 21, 2020. 19:23 Method Of Arrival: Ambulatory iw 19:23 Acuity: CATRACHO 3 iw Triage Assessment: 19:27 General: Appears in no apparent distress. comfortable, Behavior is calm, cooperative. iw Pain: Complains of pain in lower left third molar. Historical: - Allergies: 19:27 Lexapro; iw - PMHx: 19:27 Asthma; Depression; Anxiety; iw - Immunization history:: Adult Immunizations up to date. - Social history:: Smoking status: Patient denies any tobacco usage or history of. Screenin:19 Abuse screen: Denies threats or abuse. Denies injuries from another. Nutritional ca1 screening: No deficits noted. Tuberculosis screening: No symptoms or risk factors identified. Fall Risk IV access (20 points). Assessment: 22:19 General: Appears in no apparent distress. comfortable, Behavior is calm, cooperative, ca1 appropriate for age. Pain: Complains of pain in left cheek and left jaw Pain currently is 8 out of 10 on a pain scale. Pain began 1 day ago. Neuro: Level of Consciousness is awake, alert, obeys commands, Oriented to person, place, time, situation, Appropriate for age. GI: Abdomen is flat, non-distended, Bowel sounds present X 4 quads. Abd is soft and non tender X 4 quads. Reports nausea. :. EENT: Derm: Skin is intact, is healthy with good turgor, Skin is pink, warm \T\ dry. Musculoskeletal: Circulation, motion, and sensation intact. Capillary refill is > 3 seconds. 23:00 Reassessment: d/c instructions given. gait steady and even. zb Vital Signs: 19:23 BP 115 / 88; Pulse 86; Resp 18; Temp 97.7; Pulse Ox 100% ; Weight 65.77 kg; Height 5 iw ft. 8 in. (172.72 cm); Pain 8/10; 23:00 BP 107 / 80; Pulse 82; Resp 16; Pulse Ox 100% on R/A; zb 19:23 Body Mass Index 22.05 (65.77 kg, 172.72 cm) iw ED Course: 18:18 Patient arrived in ED. mr 19:26 Triage completed. iw 19:27 Arm band placed on right wrist. iw 20:09 [facility]ahair[facility] Steve [facility] kb 20:09 Marvin Stein MD is Attending Physician. kb 22:01 Tc Herrera, ABI is Primary Nurse. em 22:14 Initial lab(s) drawn, by me, sent to lab. Inserted saline lock: 20 gauge in right ca1 antecubital area, using aseptic technique. Blood collected. 22:19 Patient has correct armband on for positive identification. Bed in low position. Call ca1 light in reach. Side rails up X 1. Pulse ox on. NIBP on. Warm blanket given. 23:11 No provider procedures requiring assistance completed. IV discontinued, intact, zb bleeding controlled, No redness/swelling at site. Pressure dressing applied. Administered Medications: 22:19 Drug: [place] 10 mg-325 mg 1 tabs {Note: rass 0.} Route: PO; ca1 23:00 Follow up: Response: No adverse reaction; Pain is decreased zb Outcome: :55 Discharge ordered by . kb 23:09 Patient left the ED. dh4 23:11 Discharged to home ambulatory. yaminib 23:11 Condition: stable 23:11 Discharge instructions given to patient, Instructed on discharge instructions, follow up and referral plans. Demonstrated understanding of instructions, follow-up care. Signatures: Yahaira Steve, DEVON BALDWINP-Tita Ward mr HerreraTc, RN Johanna Montana RN RN iw Acob, Cheryl, RN RN ca1 Huhn, Donald formerly [facility] Irina Nichole RN RN zb Corrections: (The following items were deleted from the chart) 19:29 19:23 Acuity: CATRACHO 4 iw iw
[2020-06-21 23:40] VITALS: BP 115/88; TEMP 97.7; O2SAT 100
== END 2020-06-21 23:09 | disposition home or self-care (01) ==
LOC: ER 18:16
DX: K08.89 Other specified disorders of teeth and supporting structures (principal); J45.909 Unspecified asthma, uncomplicated; F32.9 Major depressive disorder, single episode, unspecified; F41.9 Anxiety disorder, unspecified
CPT/HCPCS: 36415; 80048; 85025; 99284

== ENCOUNTER 2020-06-25 21:14 | Emergency (ER) | payer SELFPAY ==
--- OUTSIDE RECORDS SUMMARY | 2020-06-25 21:17 | XMS REPORT | Clinical Summary ---
:1995 Author Organization [employer] Address [address] [place] [address] Care Team Providers Name Role Phone MD [...] unspecified vom iting type (Primary Dx) after 06/25/2019 Immunizations Name Administration Dates Next Due Tdap [...] Comments Blood Pressure 106/68 04/08/2020 1:28 PM RESIDENTIAL LIVING ASSISTANT Pulse 114 04/08/2020 1:28 PM RESIDENTIAL LIVING ASSISTANT Temperature 36 C (96.8 F) 04/08/2020 1:28 PM RESIDENTIAL LIVING ASSISTANT Respiratory Rate 20 04/08/2020 1:28 PM RESIDENTIAL LIVING ASSISTANT Oxygen Saturation 100% 04/08/2020 1:28 PM RESIDENTIAL LIVING ASSISTANT Inhaled Oxygen Concentration - - Weight 65.8 kg (145 lb) 07/22/2019 8:29 AM RESIDENTIAL LIVING ASSISTANT Height 172.7 cm (5' 8") 07/22/2019 8:29 AM RESIDENTIAL LIVING ASSISTANT Body Mass Index 22.05 07/22/2019 8:29 AM RESIDENTIAL LIVING ASSISTANT Plan of Treatment Health Maintenance Due Date Last Done Comments COVID-19 VACCINE (1 of 2) 2009 HEPATITIS C SCREENING 2011 CERVICAL CANCER SCREENING 2014 INFLUENZA VACCINE 12/19/2019 Procedures Procedure Name Priority Date/Time Associated Comments Diagnosis COVID-19 QUALITATIVE STAT 04/05/2020 9:41 Res ults for this PCR PM RESIDENTIAL LIVING ASSISTANT procedure are i n the results section. URINE CULTURE STAT 04/05/2020 8:59 Results fo r this PM RESIDENTIAL LIVING ASSISTANT procedure are i n the results section. URINE DRUGS OF ABUSE STAT 04/05/2020 8:42 Res ults for this SCREEN PM RESIDENTIAL LIVING ASSISTANT procedure are i n the results section. HCG QUALITATIVE, URINE STAT 04/05/2020 8:42 R esults for this SCREEN PM RESIDENTIAL LIVING ASSISTANT procedure are i n the results section. URINALYSIS SCREEN AND STAT 04/05/2020 8:42 Re sults for this MICROSCOPY, WITH REFLEX PM RESIDENTIAL LIVING ASSISTANT proc edure are in TO CULTURE the results section. BILIRUBIN DIRECT STAT 04/05/2020 7:23 Results for this PM RESIDENTIAL LIVING ASSISTANT procedure are i n the results section. ESTIMATED GFR STAT 04/05/2020 7:23 Results fo r this PM RESIDENTIAL LIVING ASSISTANT procedure are i n the results section. SALICYLATE LEVEL STAT 04/05/2020 7:23 Results for this PM RESIDENTIAL LIVING ASSISTANT procedure are i n the results section. ACETAMINOPHEN LEVEL STAT 04/05/2020 7:23 Resu lts for this PM RESIDENTIAL LIVING ASSISTANT procedure are i n the results section. ALCOHOL LEVEL, BLOOD STAT 04/05/2020 7:23 Res ults for this PM RESIDENTIAL LIVING ASSISTANT procedure are i n the results section. T4, FREE STAT 04/05/2020 7:23 Results for this PM RESIDENTIAL LIVING ASSISTANT procedure are i n the results section. THYROID STIMULATING STAT 04/05/2020 7:23 Resu lts for this HORMONE PM RESIDENTIAL LIVING ASSISTANT procedure are i n the results section. CREATINE KINASE, TOTAL STAT 04/05/2020 7:23 R esults for this (CPK) PM RESIDENTIAL LIVING ASSISTANT procedure are i n the results section. COMPREHENSIVE METABOLIC STAT 04/05/2020 7:23 Results for this PANEL PM RESIDENTIAL LIVING ASSISTANT procedure are i n the results section. HC COMPLETE BLD COUNT STAT 04/05/2020 7:23 Re sults for this W/AUTO DIFF PM RESIDENTIAL LIVING ASSISTANT procedure are i n the results section. ECG ED PRELIMINARY Routine 04/05/2020 7:22 Resul ts for this INTERPRETATION PM RESIDENTIAL LIVING ASSISTANT procedure are in the results section. ECG 12-LEAD STAT 04/05/2020 7:12 Results for this PM RESIDENTIAL LIVING ASSISTANT procedure are i n the results section. ESTIMATED GFR STAT 07/22/2019 8:37 Results fo r this AM RESIDENTIAL LIVING ASSISTANT procedure are i n the results section. HCG QUALITATIVE, URINE STAT 07/22/2019 8:37 R esults for this SCREEN AM RESIDENTIAL LIVING ASSISTANT procedure are i n the results section. URINE DRUGS OF ABUSE STAT 07/22/2019 8:37 Res ults for this SCREEN AM RESIDENTIAL LIVING ASSISTANT procedure are i n the results section. URINALYSIS SCREEN AND STAT 07/22/2019 8:37 Re sults for this MICROSCOPY, WITH REFLEX AM RESIDENTIAL LIVING ASSISTANT proc edure are in TO CULTURE the results section. LIPASE LEVEL STAT 07/22/2019 8:37 Results for this AM RESIDENTIAL LIVING ASSISTANT procedure are i n the results section. COMPREHENSIVE METABOLIC STAT 07/22/2019 8:37 Results for this PANEL AM RESIDENTIAL LIVING ASSISTANT procedure are i n the results section. HC COMPLETE BLD COUNT STAT 07/22/2019 8:37 Re sults for this W/AUTO DIFF AM RESIDENTIAL LIVING ASSISTANT procedure are i n the results section. URINE CULTURE STAT 07/22/2019 8:37 Results fo r this AM RESIDENTIAL LIVING ASSISTANT procedure are i n the results section. after 06/25/2019 Results COVID-19 qualitative PCR (04/05/2020 9:41 PM RESIDENTIAL LIVING ASSISTANT) Interpretation Negative results do not prec lude 2019-nCoV infection and should not be used as the sole basis for treatment or other patient management decisions. Negative results must be combined with clinical observations, patient history, and epidemiological JULIAN information. [facility] COVID-19 qualitative Not-Detected Not-Detecte JULIAN PCR result d [facility] COVID19 qualitative See link below for JULIAN PCR PDF Lab YARSANI ReportComment: Case HOSPITAL Number: [id number] Specimen Nasopharyngeal swab Performing Organization Address [facility] Phon e Number [facility] DEPARTMENT OF PATHOLOGY AND [address] [place] [address] 0 [place] [id number] [facility] Urine culture (04/05/2020 8:59 PM RESIDENTIAL LIVING ASSISTANT)Only the most recent of2 resultswithin the time period is included. [facility] Urine culture Mixed brunilda <=10-3 col/cc [facility] IST isolate Comment: HOSPITAL Specimen Information Specimen Source: Urine Specimen Site: Clean catch Specimen Urine Performing Organization Address [facility] Phon e Number [facility] DEPARTMENT OF PATHOLOGY AND [address] [place] [address] [address] Urinalysis screen and microscopy, with reflex to culture (04/05/2020 8:42 PM RESIDENTIAL LIVING ASSISTANT)Only the most recent of2 resultswithin the time period is included. Specimen site Clean catch [facility] Color, UA Yellow [facility] Appearance, UA Clear [facility] Specific gravity, UA 1.029 1.001 - 1.035 [facility] pH, UA 6.0 5.0 - 8.5 [facility] Protein, UA 1+ (A) Negative [facility] Glucose, UA Negative Negative [facility] Ketones, UA 1+ (A) Negative [facility] Bilirubin, UA Negative Negative [facility] Blood, UA Small (A) Negative [facility] Nitrite, UA Negative Negative [facility] Urobilinogen, UA Negative <2.0 [facility] Leukocyte esterase, Large (A) Negative [facility] Epithelial cells, UA Many /HPF [facility] WBC, UA 26 (H) 0 - 5 /HPF [facility] RBC, UA 7 (H) 0 - 5 /HPF [facility] Bacteria, UA Trace None seen [facility] Yeast, UA None seen [facility] Yeast with None seen [facility] pseudohyphae, UA [facility] Specimen Urine Performing Organization Address City/[facility]/ZIP [facility] Phon e Number [facility] DEPARTMENT OF PATHOLOGY AND [address] [place] [address] [address] hCG qualitative, urine screen (04/05/2020 8:42 PM RESIDENTIAL LIVING ASSISTANT)Only the most recent of2 resultswithin the time period is included. hCG qualitative, Negative Negative [facility] urine Comment: [facility] The manufacturers stated sensitivity of HcG test for s kiara is >/= 10 mIU/ml and urine is >/= 20mIU/ml. Specimen Urine Performing Organization Address City/State/ZIP Code Phon e Number [facility] DEPARTMENT OF PATHOLOGY AND [address] [place] [address] [address] Urine drugs of abuse screen (04/05/2020 8:42 PM RESIDENTIAL LIVING ASSISTANT)Only the most recent of2 resultswithin the time period is included. Amphetamine screen, Positive (A) JULIAN urine [facility] Barbiturate screen, Negative JULIAN urine [facility] Benzodiazepine Positive (A) JULIAN screen, urine [facility] Cocaine screen, urine Negative [facility] Methadone metabolite Negative JULIAN (EDDP), urine [facility] Opiates screen, urine Negative [facility] Oxycodone screen, Negative JULIAN urine [facility] Phencyclidine screen, Negative JULIAN urine [facility] Cannabinoid screen, Positive (A) JULIAN urine Comment: Y[facility] Drug screen minimum concentration of detectability [place] Amphetamines 1000 ng/mL HOSPITAL Barbiturates 200 ng/mL [...] requir ed. Specimen Urine Performing Organization Address City/[facility] Phon e Number [facility] DEPARTMENT OF PATHOLOGY AND [address] [facility]. [place], [place] [address] [facility] [address] [place] [address] Estimated GFR (04/05/2020 7:23 PM RESIDENTIAL LIVING ASSISTANT)Only the most recent of2 resultswithin the time period is included. [facility] Estimated GFR >=90 mL/min/1.73 [facility] Comment: m2 [facility] Catergory Units Interpretation G1 >=90 Normal [...] in 2014. Specimen Plasma Performing Organization Address City/State/ZIP [facility] Phon e Number [facility] DEPARTMENT OF PATHOLOGY AND [address] [place], [place] [address] GENOMIC MEDICINE [facility] [address] [facility] [place] [address] CBC with platelet and differential (04/05/2020 7:23 PM RESIDENTIAL LIVING ASSISTANT)Only the most recent of2 resultswithin the time period is included. Pathologist Sig nature WBC 7.8 4.2 - 11.0 k/uL [facility] RBC 4.65 4.04 - 5.86 [facility] m/uL [facility] HGB 13.7 11.5 - 15.3 [facility] g/dL [facility] HCT 41.7 34.0 - 45.0 % [facility] MCV 89.7 80.0 - 98.0 fL [facility] MCH 29.5 27.0 - 34.0 pg [facility] MCHC 32.9 31.5 - 36.5 [facility] - SD 42.4 37.0 - 51.0 fL [facility] MPV 9.2 7.4 - 10.4 fL [facility] Platelet count 444 (H) 150 - 400 k/uL [facility] Nucleated RBC 0.00 /100 WBC [facility] Neutrophils 62.3 36.0 - 66.0 % [facility] Lymphocytes 27.4 24.0 - 44.0 % [facility] Monocytes 8.7 (H) 0.0 - 6.0 % [facility] Eosinophils 0.5 0.0 - 6.0 % [facility] Basophils 0.8 0.0 - 1.2 % [facility] Immature granulocytes 0.3 0.0 - 1.0 % [facility] Specimen Plasma Performing Organization Address City/State/ZIP Code Phon e Number [facility] DEPARTMENT OF PATHOLOGY AND [address] [place], [place] [address] [facility] MEDICINE [facility] [address] [facility] [place], [place] [address] Thyroid stimulating hormone (04/05/2020 7:23 PM RESIDENTIAL LIVING ASSISTANT) Pathologist Sig nature TSH 2.16 0.27 - 4.20 uIU/mL [facility] Specimen Plasma Performing Organization Address City/[facility] Phon e Number [facility] DEPARTMENT OF PATHOLOGY AND [address] [facility] [address] [place] [phone] 21 [facility] [address] [facility]. [place] [address] T4, free (04/05/2020 7:23 PM RESIDENTIAL LIVING ASSISTANT) Pathologist Sig nature T4, free 1.83 (H) 0.90 - 1.70 ng/dL [facility] Specimen Plasma Performing Organization Address [facility] Phon e Number [facility] DEPARTMENT OF PATHOLOGY AND [address] [facility]. [place] [address] [facility] [address] [place] [address]. [place], [place] [address] Creatine kinase, total (CPK) (04/05/2020 7:23 PM RESIDENTIAL LIVING ASSISTANT) Pathologist Sig [facility] Creatine kinase 72 26 - 192 U/L [facility] Specimen Plasma Performing Organization Address City/[facility] Phon e Number [facility] DEPARTMENT OF PATHOLOGY AND [address] [facility]. [place] [address] [facility] [address] [place] [address]. [place], [place] [address] Bilirubin direct (04/05/2020 7:23 PM RESIDENTIAL LIVING ASSISTANT) Pathologist Sig nature Bilirubin direct 0.3 0.0 - 0.4 mg/dL [facility] Specimen Plasma Performing Organization Address City/[facility] Phon e Number [facility] DEPARTMENT OF PATHOLOGY AND [address] [facility]. [place] [address] [facility] [address] [facility]. [place] [address] Alcohol level, blood (04/05/2020 7:23 PM RESIDENTIAL LIVING ASSISTANT) Alcohol None Detected mg/dL [facility] Comment: [facility] Normal None Detecte d Legal Intoxication in [place] 80 mg/dL (0.08%) Toxic Concentration 200 mg/dL (0.2%) Potentially Fatal 350-500 mg/dL (0.3 5%-0.5%) Alcohol percent None Detected % [facility] Specimen Blood Performing Organization Address City/[facility] Phon e Number [facility] DEPARTMENT OF PATHOLOGY AND [address] [facility] [address] [place] [address] [facility] [address] [facility]. [place] [address] Acetaminophen level (04/05/2020 7:23 PM RESIDENTIAL LIVING ASSISTANT) Acetaminophen level <15.3 10.0 - 30.0 JULIAN Comment: ug/mL YARS[facility] Therapeutic 1 0-30 ug/mL [facility] Possible Toxicity 150- 200 ug/mL Probable Toxicity >200 ug/mL Specimen Blood Performing Organization Address City/[facility] Phon e Number [facility] DEPARTMENT OF PATHOLOGY AND [address] [facility] [address] [place] [address] [facility] [address] [facility]. [place] [address] Salicylate level (04/05/2020 7:23 PM RESIDENTIAL LIVING ASSISTANT) Pathologist Sig nature Salicylate <0.4 (L) 3.0 - 30.0 [facility] Comment: mg/dL [facility] Therapeutic Range: 5 - 30 mg/dL Specimen Blood Performing Organization Address City/[facility] Phon e Number [facility] DEPARTMENT OF PATHOLOGY AND [address] [facility] [address]. [place] [address] [facility] [address] [facility]. [place] [address] Comprehensive metabolic panel (04/05/2020 7:23 PM RESIDENTIAL LIVING ASSISTANT)Only the most recent of2 resultswithin the time period is included. Pathologist Sig nature Sodium 139 135 - 150 mEq/L [facility] Potassium 3.7 3.5 - 5.0 mEq/L [facility] Chloride 103 98 - 112 mEq/L [facility] CO2 24 24 - 31 mmol/L [facility] Anion gap 12@ANIO 7 - 15 mEq/L [facility] BUN 15 7 - 18 mg/dL [facility] Creatinine 0.80 0.50 - 0.90 [facility] mg/dL [facility] Glucose 97 65 - 100 mg/dL [facility] Calcium 10.0 8.3 - 10.2 mg/dL [facility] Protein 8.1 6.3 - 8.3 g/dL [facility] Albumin 4.3 3.5 - 5.0 g/dL [facility] A/G ratio 1.1 0.7 - 3.8 [facility] Alkaline phosphatase 69 0 - 104 U/L [facility] AST 19 10 - 35 U/L [facility] ALT 35 5 - 50 U/L [facility] Total bilirubin 1.5 (H) 0.2 - 1.2 mg/dL [facility] Specimen Plasma Performing Organization Address City/State/[facility] Code Phon e Number [facility] DEPARTMENT OF PATHOLOGY AND [address] [place], [place] [address] GENOMIC MEDICINE [facility] [address] [place], [place] [address] ECG ED Preliminary Interpretation - Not an Order (04/05/2020 7:22 PM RESIDENTIAL LIVING ASSISTANT) Narrative Performed At Steven Lake MD 04/07/2020 5:03 PM ECG ED Preliminary Interpretation - Not an Order Performed by: Steven Lake MD Authorized by: Steven Lake MD ECG reviewed by ED Physician in the abse nce of a clicking machine operator: yes Interpretation: Interpretation: normal Rate: ECG rate: 91 ECG rate assessment: normal Rhythm: Rhythm: sinus rhythm Ectopy: Ectopy: none QRS: QRS axis: Normal QRS intervals: Normal Conduction: Conduction: normal ST segments: ST segments: Normal T waves: T waves: normal ECG 12 lead (04/05/2020 7:12 PM RESIDENTIAL LIVING ASSISTANT) Pathologist Sig nature Ventricular rate 91 [facility] Atrial rate 91 [facility] TN interval 132 [facility] QRSD interval 86 [facility] QT interval 380 [facility] QTC interval 467 [facility] P axis 1 23 [facility] QRS axis 1 48 [facility] T wave axis 40 [facility] EKG impression Normal sinus [facility] MUSE rhythm-Normal ECG-No previous ECGs available-Electronicall y Signed By Roberto Tapia MD ([id number]) on 04/08/2020 12:03:00 PM Specimen Narrative Performed At This result has an attachment that is no t available. Performing Organization Address City/[facility]/ZIP Code Phon e Number [facility] MUSE [address] [place] [address] Lipase level (07/22/2019 8:37 AM RESIDENTIAL LIVING ASSISTANT) Pathologist Sig nature Lipase 76 (H) 13 - 60 U/L [facility] Specimen Plasma specimen Performing Organization Address City/[facility] Phon e Number [facility] DEPARTMENT OF PATHOLOGY AND [address] [place] [address] GENOMIC MEDICINE [facility] [address] [place], [place] [address] [facility] after 06/25/2019 Advance Directives For more information, please contact: [phone] Type Date Recorded Patient Vp Publisher Development Explanati on Advance Directives, Living 12/10/2016 11:22 AM Will and Medical Power of Manager Basketball Advance Directives, Living 04/05/2020 7:17 PM Will and Medical Power of Manager [employer]
--- OUTSIDE RECORDS SUMMARY | 2020-06-25 21:18 | XMS REPORT | Continuity of Care Document ---
:1995 Author Organization [facility] t Address [address] [place] [address] Care Team Providers Name Role Phone Anyi HITCHCOCK Primary Care Physician Gerry Attending Clinician Patricia CHAMPION R Attending Clinician Jaya HITCHCOCK, PRudy Attending Clinician Nasir Cardenas MD Attending Clinician Patricia CHAMPION, R Admitting Clinician Payers Payer Name Policy Type [...] Date Date Clinician escitalo DA Active MO 2017-0 [facility] pram 5-13 Clear 00:00: Jurado 00 [facility] Escitalo Propensi Active [place] pram ty to 12-10 Methodi Oxalate adverse 00:00: st reaction 00 s to drug Social History Social Habit Start Date Stop Date Quantity Comments Source Sex Assigned At [facility] ethodist Tobacco use and 2020-04-06 2020-04-06 Never used [facility] ethodist exposure 00:00:00 00:00:00 Alcohol intake 2020-04-06 2020-04-06 Current drinker [place] [facility]rian 00:00:00 00:00:00 of alcohol (finding) Alcohol Comment 2016-12-10 2016-12-10 once a month [place] [facility] 00:00:00 00:00:00 Smoking Status Start Date Stop Date Source Never smoker [place] Methodis t Medications Ordered Filled Start Stop [...] vomiting for up to 7 days. SYMBICORT 2020- No 1{puff} QD Inhale 1 Cole 160-4.5 12-05 puff every Metho di mcg/actuati 00:00: 00:00 morning. s t on inhaler 00 :00 QUEtiapine 2019- No 25mg Q.5D Take 25 mg Cole (SEROquel) 11-28 by mouth 2 Me thodi 25 MG 00:00: 00:00 (two) st tablet 00 :00 times a day. sertraline 2020- No 100mg QD Take 100 [place] (ZOLOFT) 11-28-04 mg by Methodi 100 MG 00:00: 00:[address] tablet 00 :00 every evening. hydrOXYzine 2019- No 10mg QD Take 10 mg Cole [...] HFA 2019- No 2{puff} Q4H Inhale 2 [place] [address] 10-24 puffs Methodi mcg/actuati 00:00: 00:[address] on inhaler 00 :00 (four) hours as needed. Immunizations Ordered Immunization Filled Immunization Date Status Commen ts Source Name Name Tdap 2016-12-10 Completed [place] 00:00:00 Zoroastrian Vital Signs Vital Name Observation Time Observation Value Comments Source Systolic blood 2020-04-08 13:28:55 106 mm[Hg] Noemy n Zoroastrian pressure Diastolic blood 2020-04-08 13:28:55 68 mm[Hg] [place] on Zoroastrian pressure Heart rate 2020-04-08 13:28:55 114 /min [facility] Body temperature 2020-04-08 13:28:55 36 Hay[place] [facility] Respiratory rate 2020-04-08 13:28:55 20 /min [place] [facility] Oxygen saturation in 2020-04-08 13:28:55 100 /min [place] [facility] Arterial blood by Pulse oximetry Body height 2019-07-22 08:29:00 172.7 cm [place] [facility] Body weight 2019-07-22 08:29:00 65.772 kg [place] [facility] BMI 2019-07-22 08:29:00 22.05 kg/m2 [place] [facility] Procedures Procedure Date / Time Performing Clinician Source Performed COVID-19 QUALITATIVE PCR 2020-04-05 21:41:00 Steven Lake Z[facility]astrian URINE CULTURE 2020-04-05 20:59:00 Steven Lake URINALYSIS SCREEN AND 2020-04-05 20:42:00 Steven Lake on [facility]astrian MICROSCOPY, WITH REFLEX TO CULTURE HCG QUALITATIVE, URINE 2020-04-05 20:42:00 Steven Lake Zoroastrian SCREEN URINE DRUGS OF ABUSE 2020-04-05 20:42:00 Steven Lake Zoroastrian SCREEN HC COMPLETE BLD COUNT 2020-04-05 19:23:00 Steven Lake on Zoroastrian W/AUTO DIFF COMPREHENSIVE METABOLIC 2020-04-05 19:23:00 Steven Lake [facility]rian PANEL CREATINE KINASE, TOTAL 2020-04-05 19:23:00 Steven Lake Z[facility]astrian (CPK) THYROID STIMULATING 2020-04-05 19:23:00 Steven Lake [facility] HORMONE T4, FREE 2020-04-05 19:23:00 Steven Lake Met hodist ACETAMINOPHEN LEVEL 2020-04-05 19:23:00 Steven Lakeist SALICYLATE LEVEL 2020-04-05 19:23:00 Steven Lake Me thodist ESTIMATED GFR 2020-04-05 19:23:00 Steven Lake Met hodist BILIRUBIN DIRECT 2020-04-05 19:23:00 Steven Lake Me thodist ECG ED PRELIMINARY 2020-04-05 19:22:32 Steven Lake Z[facility]rian INTERPRETATION ECG 12-LEAD 2020-04-05 19:12:10 Steven Lake Met hodist URINE CULTURE 2019-07-22 08:37:00 Minesh Cardenas Meth odist Nasir HC COMPLETE BLD COUNT 2019-07-22 08:37:00 Minesh Cardenas Zoroastrian W/AUTO DIFF Nasir COMPREHENSIVE METABOLIC 2019-07-22 08:37:00 Minesh Cardenas Zoroastrian PANEL Nasir LIPASE LEVEL 2019-07-22 08:37:00 Minesh Cardenas Meth odist Nasir URINALYSIS SCREEN AND 2019-07-22 08:37:00 Minesh Cardenas Z[facility]astrian MICROSCOPY, WITH REFLEX TO Nasir CULTURE URINE DRUGS OF ABUSE 2019-07-22 08:37:00 Minesh Cardenasist SCREEN Nasir HCG QUALITATIVE, URINE 2019-07-22 08:37:00 Minesh Cardenas on Zoroastrian SCREEN Nasir ESTIMATED GFR 2019-07-22 08:37:00 Minesh Cardenas odist Nasir Plan of Care Planned Activity Planned Date Details Comments Source Future Scheduled 2019-12-19 INFLUENZA VACCINE [place] [facility] Test 00:00:00 [code = INFLUENZA VACCINE] Future Scheduled 2014 Screening for [place] Me thodist Test 00:00:00 malignant neoplasm of cervix (procedure) [code = 731264718] Future Scheduled 2011 Hepatitis C [facility] Met hodist Test 00:00:00 screening (procedure) [code = 615278301] Future Scheduled 2009 COVID-19 VACCINE (1 [place] [facility] Test 00:00:00 of 2) [code = COVID-19 VACCINE (1 of 2)] Encounters Start End Encounter Admission Attending Care Care Encounter Source Date/Time Date/Time Type Type Clinicians Facility Department ID 2020-06-21 2020-06-21 Transition Bobo Garrett [id number] 00:00:00 00:00:00 of Care Molly Zavaleta [id number] [place] [id number] 2020-06-18 2020-06-19 Hospital Patricia Melanie [id number] 00:41:00 16:00:00 Encounter Jordon [place] Susana [id number] [facility] [id number] 2020-04-08 2020-04-12 Outpatient HCPCDOCS HCPCDOCS [id number] 14:49:00 13:29:00 18 2020-04-05 2020-04-08 Emergency [place], [facility] [id number] [place] 00:00:00 00:00:00 STEVEN [address] 2020-01-25 2020-01-25 Emergency E MHSE MHSE [id number] MH 12:23:00 12:23:00 [facility] 2019-07-22 2019-07-22 Emergency [place], [facility] [id number] [place] 00:00:00 00:00:00 MINESH Tana [facility] 2018-10-01 2018-10-01 Emergency E MHSE MHSE [id number] MH 17:19:00 17:19:00 [facility] salome [facility] l Results Test Description Test Time Test Comments Results Result Comments Source ECG 12 lead 2020-04-08 12:03:03 Test Item Value Reference Range Interpretation Comme nts Ventricular rate (test code = 253) 91 Atrial rate (test code = 255) 91 NV interval (test code = 266) 132 QRSD [...] sinus rhythm-Normal ECG-No previous ECGs available- Douglas HurdJordon [id number] 03:52:31 Test Item Value Reference Range Interpretation Comments Urine culture Mixed brunilda Specimen isolate (test <=10-3 col/cc InformationSp ecimen code = 78502-5) Source: Urin eSpecimen Site: Clean cat [facility] UzielemeliaCOVID-19 qualitative [id number] 02:22:22 Test Item Value Reference Range Interpretation Comments Interpretation (test Negative results do code = 9822647) not preclude 2019-nCoV infection and should not be used as the sole basis for treatment or other patient management decisions. Negative results must be combined with clinical observations, patient history, and epidemiological information. COVID-19 qualitative Not-Detected Not-Detected PCR result (test code = 93552-6) COVID-19 qualitative See link below for C ase Number: PCR (test code = PDF Lab Report [id number]) [place] drugs of abuse [id number] 01:15:05 Test Item Value Reference Interpretation Comments Range Amphetamine screen, Positive A urine (test code = 3349-8) Barbiturate screen, Negative urine (test code = 3377-9) Benzodiazepine Positive A screen, urine (test code = 3390-2) Cocaine screen, Negative urine (test code = 3397-7) Methadone Negative metabolite (EDDP), urine (test code = 12840-1) Opiates screen, Negative urine (test code = 3879-4) Oxycodone screen, Negative urine (test code = 42381-1) Phencyclidine Negative screen, urine (test code = [...] ired. Lab Interpretation Abnormal (test code = 24263-1) [facility] MethodistUrinalysis screen and microscopy, with reflex to culture 2020-04-05 21:09:52 Test Item Value Reference Range Interpretation Comments Specimen site (test code = Clean catch 6083152) Color, UA (test code = 5778-6) Yellow Appearance, UA (test code = Clear 5767-9) Specific gravity, UA (test code = 1.029 1.001-1.035 5811-5) pH, UA (test code = 5803-2) 6.0 5.0-8.5 Protein, UA (test code = 10006-4) 1+ Negative A Glucose, UA (test code = 26835-9) Negative Negative Ketones, UA (test code = 2514-8) 1+ Negative A Bilirubin, UA (test code = Negative Negative 5770-3) Blood, UA (test code = 5794-3) Small Negative A Nitrite, UA (test code = 5802-4) Negative Negative Urobilinogen, UA (test code = Negative <2.0 80581-0) Leukocyte esterase, UA (test code Large Negative A = 5799-2) Epithelial cells, UA (test code = Many /HPF 5787-7) WBC, UA (test code = 5821-4) 26 0- 5 /HPF H RBC, UA (test code = 73029-9) 7 0- 5 /HPF H Bacteria, UA (test code = Trace None seen 88525-0) Yeast, UA (test code = 71349-5) None seen Yeast with pseudohyphae, UA (test None seen code = 48261-4) Lab Interpretation (test code = Abnormal 17196-4) [place] MethodisthCG qualitative, urine [id number] 20:50:06 Test Item Value Reference Range Interpretation Comments hCG qualitative, Negative Negative The nicole jackson stated urine (test code = sensitivi ty of HcG test 2105-07) for serum is >/ = 10 mIU/ml and urine is >/ = 20mIU/ml. [facility] MethodistThyroid stimulating [id number] 20:09:17 Test Item Value Reference Range Interpretation Comments TSH (test code = 3016-3) 2.16 0.27- 4.20 uIU/mL [place] UzielistT4, [id number] 20:09:16 Test Item Value Reference Range Interpretation Comments T4, free (test code = 3024-7) 1.83 ng/dL 0.9-1.7 H Lab Interpretation (test code = Abnormal 69585-7) [facility] ZoroastrianComprehensive metabolic [id number] 19:57:55 Test Item Value Reference Range Interpretation Comments Sodium (test code = 2951-2) 139 135- 150 mEq/L Potassium (test code = 2823-3) 3.7 3.5- 5.0 mEq/L Chloride (test code = 2075-0) 103 98- 112 mEq/L CO2 (test code = 8-9) 24 mmol/L 24-31 Anion gap (test code = 50942-9) 12@ANIO 7- 15 mEq/L BUN (test code = 3094-0) 15 mg/dL 7-18 Creatinine (test code = 2160-0) 0.80 mg/dL 0.5-0.9 Glucose (test code = 2345-7) 97 mg/dL 65-100 Calcium (test code = 35766-5) 10.0 mg/dL 8.3-10.2 Protein (test code = 2885-2) 8.1 g/dL 6.3-8.3 Albumin (test code = 1751-7) 4.3 g/dL 3.5-5 A/G ratio (test code = 1759-0) 1.1 0.7-3.8 Alkaline phosphatase (test code = 69 U/L 0-104 68-6) AST (test code = 1920-8) 19 U/L 10-35 ALT (test code = 1742-6) 35 U/L 5-50 Total bilirubin (test code = 1.5 mg/dL 0.2-1.2 H 1974-06) Lab Interpretation (test code = Abnormal 52459-1) Cole MethodistCreatine kinase, total (CPK)2020-04-05 19:57:54 Test Item Value Reference Range Interpretation Comments Creatine kinase (test code = 2157-6) 72 U/L 26-192 Cole MethodistBilirubin [id number] 19:57:53 Test Item Value Reference Range Interpretation Comments Bilirubin direct (test code = 0.3 mg/dL 0-0.4 1967-11) Cole MethodistEstimated [id number] 19:57:53 Test Item Value Reference Range Interpretation Comments Estimated GFR (test >=90 mL/min/1.73 m2 [facility] or Units code = 5488) InterpretationG 1 >=90 Normal or highG2 60-89 Mildly kohuhpxskK3a 45-59 Mildly to mode rately sdhvhpugkQ8s 30-44 Moderately to severely decreasedG4 15-29 Severely decre asedG5 <15 Kidn ey failureThe eGFR was calculated rudy g the Chronic Kidney Disease Epidemiology Co llaboration (CKD-EPI) equat ion. Interpretation is based on recommendations of the National Kidney Foundation-Kidn ey Disease Outcomes Qualit y Initiative (NKF-KDOQI) pub lished in 2014. Cole MethodistSalicylate [id number] 19:56:47 Test Item Value Reference Range Interpretation Comments Salicylate (test code = <0.4 3-30 L Ther apeutic Range: 5 4024-6) - 30 mg/dL Lab Interpretation (test Abnormal code = 67576-6) Cole MethodistAcetaminophen [id number] 19:56:47 Test Item Value Reference Range Interpretation Comments Acetaminophen level (test <15.3 10-30 erapeutic code = 3298-7) 10-30 ug/mL Possible Toxicity 150-200 ug/ mL Proba ble Toxicity >2 00 ug/mL [place] MethodistAlcohol level, [id number] 19:51:59 Test Item Value Reference Range Interpretation Comments Alcohol percent None Detected % Normal (test code = None 5643-2) DetectedLegal Intoxication in [place] 80 mg/dL (0.08% )Toxic Concentration 200 mg/dL (0.2%)Potential ly Fatal 350 -500 mg/dL (0.35%-0. 5%) [place] MethodistCBC with platelet and [id number] 19:40:39 Test Item Value Reference Range Interpretation Comments WBC (test code = 56489-9) 7.8 4.2- 11.0 k/uL RBC (test code = 79656-9) 4.65 m/uL 4.04-5.86 HGB (test code = 718-7) 13.7 g/dL 11.5-15.3 HCT (test code = 4544-3) 41.7 % 34-45 MCV (test code = 787-2) 89.7 fL 80-98 MCH (test code = 785-6) 29.5 pg 27-34 MCHC (test code = 786-4) 32.9 g/dL 31.5-36.5 RDW - SD (test code = 76396-6) 42.4 fL 37-51 MPV (test code = 55205-1) 9.2 fL 7.4-10.4 Platelet count (test code = 444 150- 400 k/uL H 41144-5) Nucleated RBC (test code = 88993-7) 0.00 /100 WBC Neutrophils (test code = 56406-5) 62.3 % 36-66 Lymphocytes (test code = 47623-3) 27.4 % 24-44 Monocytes (test code = 72953-9) 8.7 % 0-6 H Eosinophils (test code = 43713-9) 0.5 % 0-6 Basophils (test code = 85579-9) 0.8 % 0-1.2 Immature granulocytes (test code = 0.3 % 0-1 37527-1) Lab Interpretation (test code = Abnormal 92675-5) [place] MethodistEC ED Preliminary Interpretation - Not an [id number] 19:22:32Steven Lake MD 04/07/2020 5:03 [facility] ED Preliminary Interpretation - Not an OrderPerformed by: Steven Lake MDAuthorized by: Steven Lake MD ECG reviewed by ED Physician in the absence of a vacuum worker: yes Interpretation: Interpretation: normal Rate: ECG rate: 91 ECG rate assessment: normal Rhythm: Rhythm: sinus rhythm Ectopy: Ectopy: none QRS: QRS axis: Normal QRS intervals: NormalConduction: Conduction: normal ST segments: ST segments: NormalT waves: T waves: normalHouston MethodistLipase [id number] 08:59:55 Test Item Value Reference Range Interpretation Comments Lipase (test code = 3040-3) 76 U/L 13-60 H Lab Interpretation (test code = Abnormal 04448-3) [place] MethodistDRUGS OF ABUSE SCREEN [id number] 12:16:00 Test Item Value Reference Range Interpretation [...] ed for non-medical pur poses. HEPATIC FUNCTION [id number] 12:08:00 Test Item Value Reference Range Interpretation [...] (test code = CK) UNITS/LITER HCG SERUM [id number] 12:08:00 Test Item Value Reference Range Interpretation Comments HCG SERUM QUAL (test code = SERUM NEGATIVE NEGATIVE HCGQL) THYROID STIMULATING [id number] 12:08:00 Test Item Value Reference Range Interpretation Comments THYROID STIMULATING 5.09 0.42-5.47 N Results in HORMONE (test code = TSH) mi lli-International Units/mL [id number] 12:08:00 Test Item Value Reference Range Interpretation Comments ACETAMINOPHEN (test code = ACET) < 2 ug/mL 10-30 L [id number] 12:08:00 Test Item Value Reference Range Interpretation Comments SALICYLATE (test code = JANETH) < 1.7 mg/dL 2.8-20.0 L [id number] 12:08:00 Test Item Value Reference Range Interpretation Comments ALCOHOL (test code < 0.003 G/dL <0.003 Ethyl Alc ohol = ALC) Interpretation: 0.100 gm/dL - Legally Intoxic ated 0.300-0.40 0 gm/dL - Severely Into xicated >0.400 gm/dL - Potentially LethalResults a re for Medical purpose s only, and not for Leg al orEmployment ev aluation purposes. DRUGS OF ABUSE SCREEN [id number] 12:06:00 Test Item Value Reference Range Interpretation [...] ed for non-medical pur poses. CBC W/O [id number] 11:59:00 Test Item Value Reference Range Interpretation [...] 9.9 fL 7.0-9.0 H = MPV) URINALYSIS [id number] 11:57:00 Test Item Value Reference Range Interpretation [...] 4+ /HPF NONE = YEASTUBD) HEPATIC FUNCTION [id number] 11:50:00 Test Item Value Reference Range Interpretation [...] (test code = CK) 35-232 HCG SERUM [id number] 11:50:00 Test Item Value Reference Range Interpretation Comments HCG SERUM QUAL (test code = SERUM NEGATIVE NEGATIVE HCGQL) THYROID STIMULATING [id number] 11:50:00 Test Item Value Reference Range Interpretation Comments THYROID STIMULATING HORMONE (test code 0.42-5.47 = TSH) [id number] 11:50:00 Test Item Value Reference Range Interpretation Comments ACETAMINOPHEN (test code = ACET) ug/mL 10-30 [id number] 11:50:00 Test Item Value Reference Range Interpretation Comments SALICYLATE (test code = JANETH) mg/dL 2.8-20.0 [id number] 11:50:00 Test Item Value Reference Range Interpretation Comments ALCOHOL (test code = ALC) G/dL <0.003 CHEMISTRY 8 [id number] 11:32:00 Test Item Value Reference Range Interpretation [...] ML/MIN (test code = GFRBED) CHEMISTRY 8 [id number] 11:32:00 Test Item Value Reference Range Interpretation Comments ISTAT-SODIUM (test 142 MMOL/L 134-147 N code = NAP) ISTAT-POTASSIUM (test 3.1 MMOL/L 3.4-5.0 L code = KP) ISTAT-CHLORIDE (test 105 MMOL/L 100-108 N Perform ed by code = CLP) certified opera tor at [facility] ISTAT CARBON DIOXIDE 22.0 mmol/L [...]
--- OUTSIDE RECORDS SUMMARY | 2020-06-25 21:18 | XMS REPORT | Summary of Care ---
:1995 Author Organization [facility] - [facility] Address [address] [place] [id number] Care Team Providers Name Role Phone Marichuy De Santiago Primary Care Provider Reason for Visit Reason Comments Transition Of Care Encounter Details Date Type Department Care Team Description 06/21/2020 Transition of Care [facility] Albert Garrett Transition Of Care Health [facility]- [address] [place] [address] [id number] Allergies Active Allergy Reactions Severity Noted Date Comments Escitalopram Oxalate Unknown - See comments 03/03/2019 documented as of this encounter (statuses as of 06/23/2020) Medications Medication Sig Dispensed Refills Start Date End Date Status ibuprofen 600 mg Take 1 tablet 30 tablet 1 06/19/2020 Active tabletIndications: by mouth every Submandibular abscess 6 (six) hours as needed for Pain (scale 1-3) or Pain (scale 4-6). chlorhexidine 0.12 % Swish and spit 473 mL 0 06/19/2020 Active mouthwashIndications: out 15 mL 2 Submandibular abscess (two) times daily. amoxicillin-pot Take 1 tablet 21 tablet 0 06/19/2020 Active clavulanate 500 mg by mouth 3 (AUGMENTIN) 500-125 mg (three) times tabletIndications: daily for 7 Submandibular abscess days. acetaminophen (TYLENOL Take 1 tablet 30 tablet 1 06/19/2020 Active EXTRA STRENGTH) 500 mg by mouth every tabletIndications: 6 (six) hours Submandibular abscess as needed for Pain. documented as of this encounter (statuses as of 06/23/2020) Active Problems Problem Noted Date Submandibular abscess 06/18/2020 documented as of this encounter (statuses as of 06/23/2020) Social History Tobacco Use Types Packs/Day Years Used Date Never Smoker Smokeless Tobacco: Never Used Sex Assigned at Date Recorded Not on file COVID-19 Exposure Response Date Recorded In the last month, have you been in contact with No / Unsure 06/18/2020 1:25 AM [employer] someone who was confirmed or suspected to have Coronavirus / COVID-19? documented as of this encounter Last Filed Vital Signs Not on filedocumented in this encounter Miscellaneous Notes Telephone Encounter - Molly Garrett - 06/23/2020 3:13 PM CST2nd call mailbox is full, not able to contact. 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 She was discharged on 06/19/20 with discharge disposition of HR- Routine Discharge. Admitting Physician: Jordon Gomez Discharge Diagnosis: left submandibular space abscess - left sublingual space infection - carious/partial bony impacted tooth #17 Mother will give patient the message to return call. No linked episodes TCM Fgh-xbju-ur-face outreach documentation: Future Appointments: documented in this encounter Plan of Treatment Health Maintenance Due Date Last Done Comments VARICELLA VACCINES (1 of 2 - 2-dose childhood series) 1994 PNEUMOCOCCAL 0-64 YEARS COMBINED SERIES (1 of 3 - 1999 PCV13) Depression Screening 2005 DTaP,Tdap,and Td Vaccines (1 - Tdap) 01/08/2012 PAP SMEAR 2014 INFLUENZA VACCINE (#1) 2020 documented as of this encounter Results Not on filedocumented in this encounter Additional Health Concerns Infection Onset Date Last Indicated Resolved Time COVID-19 Rule Out 06/18/2020 06/18/2020 documented as of this encounter Advance Directives Name Relationship Healthcare Agent Relationship Co mmunication Edelmira Valadez [facility] Care Agent [phone] ( XING)
[2020-06-26] MEDS ORDERED: NA CHLORIDE 0.9% 1,000 ML ONE (01:12)
[2020-06-26 01:22] LABS: Absolute Lymphocytes (CBC) 3.6 K/uL (0.7-4.9); Lymphocytes % 34.5 % (15.3-44.8); MPV 7.7 fL (7.6-11.3); RBC Red Blood Cell Count 4.69 M/uL (3.86-4.86)
[2020-06-26 01:25] LABS: Protime INR 1.09
[2020-06-26 01:36] LABS: Bilirubin Direct 0.1 mg/dL (0-0.2); Bilirubin Total 0.4 mg/dL (0.2-1.0); Protein, Total 8.2 g/dL (6.4-8.2)
[2020-06-26 02:51] LABS: Urine Specific Gravity 1.015 (1.005-1.030)
[2020-06-26 02:51] LABS: Urine Blood NEGATIVE (NEG); Urine Glucose NEGATIVE (NEG); Urine Protein NEGATIVE (NEG); Urine Specific Gravity 1.015 (1.005-1.030)
[2020-06-26] MEDS ORDERED: MAGNESIUM CITRATE 300 ML BOT ONE (03:09)
--- NOTE | 2020-06-26 03:30 | EDPHYS ---
Physician Documentation [facility] Name: Elena Bran Age: 25 yrs Sex: Female : 1995 Arrival Date: 06/25/2020 Time: 21:18 Bed 8 Private MD: ED Physician Patel Marquez HPI: 06/26 00:56 This 25 yrs old Female presents to ER via Ambulatory with complaints of mh7 Rectal Bleeding, Abdominal Pain. 00:56 The patient presents with abdominal pain that is diffuse, Constipation. Onset: The mh7 symptoms/episode began/occurred 2 week(s) ago. The symptoms do not radiate. Associated signs and symptoms: Pertinent positives: constipation, Rectal bleeding, Pertinent negatives: nausea, vomiting, and diarrhea, anorexia, blood in stools, chest pain, dysuria, fever, headache, hematuria, nausea, palpitations, shortness of breath, vaginal discharge, vomiting, vomiting blood. The symptoms are described as crampy, intermittent, waxing/waning. Modifying factors: The symptoms are alleviated by nothing, the symptoms are aggravated by nothing. 00:59 Severity of pain: At its worst the pain was moderate 7 day(s) ago, in the emergency 7 department the pain has improved moderately. States that she has abdominal pain and been constipated for 2 weeks due to pain medication from oral surgery. She has had rectal bleeding with blood on toilet paper when wiping intermittently.. 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 - Social history:: Smoking status: unknown. ROS: 06/26 00:59 Constitutional: Negative for fever, chills, and weight loss, Eyes: Negative for injury, mh7 pain, redness, and discharge, ENT: Negative for injury, pain, and discharge, Neck: Negative for injury, pain, and swelling, Cardiovascular: Negative for chest pain, palpitations, and edema, Respiratory: Negative for shortness of breath, cough, wheezing, and pleuritic chest pain, Back: Negative for injury and pain, : Negative for injury, bleeding, discharge, and swelling, MS/Extremity: Negative for injury and deformity, Skin: Negative for injury, rash, and discoloration, Neuro: Negative for headache, weakness, numbness, tingling, and seizure, Psych: Negative for depression, anxiety, suicide ideation, homicidal ideation, and hallucinations, Allergy/Immunology: Negative for hives, rash, and allergies, Endocrine: Negative for neck swelling, polydipsia, polyuria, polyphagia, and marked weight changes, Hematologic/Lymphatic: Negative for swollen nodes, abnormal bleeding, and unusual bruising. Exam: 00:59 Constitutional: This is a well developed, well nourished patient who is awake, alert, mh7 and in no acute distress. Head/Face: Normocephalic, atraumatic. Eyes: Pupils equal round and reactive to light, extra-ocular motions intact. Lids and lashes normal. Conjunctiva and sclera are non-icteric and not injected. Cornea within normal limits. Periorbital areas with no swelling, redness, or edema. Neck: Trachea midline, no thyromegaly or masses palpated, and no cervical lymphadenopathy. Supple, full range of motion without nuchal rigidity, or vertebral point tenderness. No Meningismus. Chest/axilla: Normal chest wall appearance and motion. Nontender with no deformity. No lesions are appreciated. Cardiovascular: Regular rate and rhythm with a normal S1 and S2. No gallops, murmurs, or rubs. Normal PMI, no JVD. No pulse deficits. Respiratory: Lungs have equal breath sounds bilaterally, clear to auscultation and percussion. No rales, rhonchi or wheezes noted. No increased work of breathing, no retractions or nasal flaring. 00:59 Back: No spinal tenderness. No costovertebral tenderness. Full range of motion. Skin: Warm, dry with normal turgor. Normal color with no rashes, no lesions, and no evidence of cellulitis. MS/ Extremity: Pulses equal, no cyanosis. Neurovascular intact. Full, normal range of motion. Neuro: Awake and alert, GCS 15, oriented to person, place, time, and situation. Cranial nerves II-XII grossly intact. Motor strength 5/5 in all extremities. Sensory grossly intact. Cerebellar exam normal. Normal gait. Psych: Awake, alert, with orientation to person, place and time. Behavior, mood, and affect are within normal limits. 00:59 Abdomen/GI: Inspection: abdomen appears normal, Bowel sounds: normal, in all quadrants, Palpation: mild abdominal tenderness, in all quadrants, Rectal exam: rectal tone normal, Stool: brown, guaiac negative, hemorrhoid(s), internal, without bleeding, mass, is not appreciated, swelling, is not appreciated, tenderness, is not appreciated, fecal impaction, is not appreciated, the exam is chaperoned by the nurse, firm stool in rectum. Indicators: McBurney's point is not tender, López's sign is negative, Rovsing's sign is negative, Obturator sign is negative, Psoas sign is negative, Liver: no appreciated palpable abnormalities, Hernia: not appreciated. Vital Signs: 06/25 21:35 BP 107 / 78; Pulse 86; Resp 16 S; Temp 97.6(TE); Pulse Ox 100% on R/A; Weight 65.77 kg ca1 (R); Height 5 ft. 8 in. (172.72 cm) (R); Pain 8/10; 06/26 00:52 BP 128 / 91; Pulse 80; Resp 18; Pulse Ox 98% ; ea 03:30 BP 104 / 72; Pulse 78; Resp 18; Pulse Ox 98% ; ea 06/25 21:35 Body Mass Index 22.05 (65.77 kg, 172.72 cm) ca1 MDM: 03:24 Differential diagnosis: bowel obstruction, diverticulitis, gastritis, gastroesophageal mh7 reflux disease, GI Bleed, non-specific abd pain, Ureterolithiasis, urinary tract infection, Constipation, Hemorrhoids. Data reviewed: vital signs, nurses notes, lab test result(s), CBC, electrolytes, urinalysis, radiologic studies, CT scan. Data interpreted: Pulse oximetry: on room air is 98 %. Interpretation: normal. Counseling: I had a detailed discussion with the patient and/or guardian regarding: the historical points, exam findings, and any diagnostic results supporting the discharge/admit diagnosis, lab results, radiology results, the need for outpatient follow up, to return to the emergency department if symptoms worsen or persist or if there are any questions or concerns that arise at home. Response to treatment: the patient's symptoms have markedly improved after treatment. 03:29 Patient medically screened. [facility] 06/26 00:54 Order name: Basic Metabolic Panel 06/26 00:54 Order name: CBC with Diff; Complete Time: 02:19 7 06/26 00:54 Order name: Hepatic Function; Complete Time: 02:19 7 06/26 00:54 Order name: Lipase; Complete Time: 02:20 7 06/26 00:55 Order name: Protime (+inr); Complete Time: 02:20 7 06/26 00:55 Order name: Ptt, Activated; Complete Time: 02:20 [facility] 06/26 00:55 Order name: Basic Metabolic Panel; Complete Time: 02:19 EDMS 06/26 01:11 Order name: CT Abd/Pelvis - IV Contrast Only [facility] 06/26 02:46 Order name: Urine --Ancillary (enter results) 3 06/26 02:46 Order name: Urine --Ancillary; Complete Time: 03:02 EDMS 06/26 02:47 Order name: Urine Dipstick--Ancillary (enter results); Complete Time: 03:02 tt3 06/26 00:54 Order name: IV Saline Lock; Complete Time: 01:12 7 06/26 00:54 Order name: Labs collected and sent; Complete Time: 01:12 7 06/26 00:54 Order name: Urine Dipstick-Ancillary (obtain specimen); Complete Time: 03:18 7 06/26 00:54 Order name: Urine Test (obtain specimen); Complete Time: 03:18 mh7 Administered Medications: 01:12 Drug: NS 0.9% 1000 ml Route: IV; Rate: 1000 ml; Site: right antecubital; ea 02:30 Follow up: Response: No adverse reaction; IV Status: Completed infusion; IV Intake: ea 1000ml 02:55 Drug: Magnesium Citrate Liquid 150 ml Route: PO; rr5 03:20 Follow up: Response: No adverse reaction ea Disposition: 06/26/20 03:29 Discharged to Home. Impression: Constipation, Generalized abdominal pain. - Condition is Stable. - Discharge Instructions: Constipation, Adult, [id number], Abdominal Pain, Adult, [id number]. - Prescriptions for Colace 100 mg Oral Tablet - take 1 tablet by ORAL route every 12 hours; 14 tablet. Lactulose 10 gram/15 mL Oral Solution - take 30 milliliters by ORAL route once daily As needed; 150 milliliter. Dulcolax 10 mg Rectal Suppository - insert 1 suppository by RECTAL route once daily As needed; 5 suppository. - Medication Reconciliation Form, Thank You Letter, Antibiotic Education, Prescription Opioid Use form. - Follow up: Private Physician; When: 1 - 2 days; Reason: Worsening of condition, Recheck today's complaints, Continuance of care, Re-evaluation by your physician. Follow up: Tk Coppola MD; When: 1 - 2 days; Reason: Worsening of condition, Recheck today's complaints. - Problem is new. - Symptoms have improved. Signatures: Dispatcher [employer] EDMS Virgie Carrera RN RN ea Roque, Raymond RN RN rr5 Vicky Lara RN RN ca1 Holmes, Maurice, MD MD mh7 Corrections: (The following items were deleted from the chart) 03:37 03:29 06/26/2020 03:29 Discharged to Home. Impression: Constipation; Generalized ea abdominal pain. Condition is Stable. Forms are Medication Reconciliation Form, Thank You Letter, Antibiotic Education, Prescription Opioid Use. Follow up: Private Physician; When: 1 - 2 days; Reason: Worsening of condition, Recheck today's complaints, Continuance of care, Re-evaluation by your physician. Follow up: Tk Coppola; When: 1 - 2 days; Reason: Worsening of condition, Recheck today's complaints. Problem is new. Symptoms have improved. 7
--- NOTE | 2020-06-26 03:30 | ER ---
Nurse's Notes [facility] Name: Elena Bran Age: 25 yrs Sex: Female : 1995 Arrival Date: 06/25/2020 Time: 21:18 Bed 8 Private MD: Diagnosis: Constipation;Generalized abdominal pain Presentation: 06/25 21:35 Chief complaint: Patient states: Rectal bleeding, bright red and dark red started ca1 today. Reports N/V. No BM x 2 weeks. reports abdominal pain x 2 days. 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 Coronavirus screen: Client denies travel out of the [place] in the last 14 days. At this time, the client does not indicate any symptoms associated with coronavirus-19. Ebola Screen: Patient negative for fever greater than or equal to 101.5 degrees Fahrenheit, and additional compatible Ebola Virus Disease symptoms Patient denies exposure to infectious person. Patient denies travel to an Ebola-affected area in the 21 days before illness onset. No symptoms or risks identified at this time. Initial Sepsis Screen: Does the patient meet any 2 criteria? No. Patient's initial sepsis screen is negative. Does the patient have a suspected source of infection? No. Patient's initial sepsis screen is negative. Risk Assessment: Do you want to hurt yourself or someone else? Patient reports no desire to harm self or others. Onset of symptoms was June 25, 2020. 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 - Social history:: Smoking status: unknown. Screenin/07 00:51 Abuse screen: Denies threats or abuse. Nutritional screening: No deficits noted. ea Tuberculosis screening: No symptoms or risk factors identified. Fall Risk None identified. Assessment: 00:51 General: Appears in no apparent distress. Behavior is calm, cooperative, appropriate ea for age. Pain: Complains of pain in abdomen. Neuro: Level of Consciousness is awake, alert, obeys commands, Oriented to person, place, time. Cardiovascular: Patient's skin is warm and dry. Respiratory: Airway is patent Respiratory effort is even, unlabored, Respiratory pattern is regular, symmetrical. GI: Abdomen is non-distended. Derm: Skin is pink, warm \T\ dry. 01:50 Reassessment: Patient and/or family updated on plan of care and expected duration. Pain ea level reassessed. Patient is alert, oriented x 3, equal unlabored respirations, skin warm/dry/pink. 02:50 Reassessment: Patient and/or family updated on plan of care and expected duration. Pain ea level reassessed. Patient is alert, oriented x 3, equal unlabored respirations, skin warm/dry/pink. 03:31 Reassessment: Patient and/or family updated on plan of care and expected duration. Pain ea level reassessed. Patient is alert, oriented x 3, equal unlabored respirations, skin warm/dry/pink. Discharge instruction given to patient, verbalized the understanding of instruction. Pt left ED ambulatory tolerating well. Vital Signs: 06/25 21:35 BP 107 / 78; Pulse 86; Resp 16 S; Temp 97.6(TE); Pulse Ox 100% on R/A; Weight 65.77 kg ca1 (R); Height 5 ft. 8 in. (172.72 cm) (R); Pain 8/10; 06/26 00:52 BP 128 / 91; Pulse 80; Resp 18; Pulse Ox 98% ; ea 03:30 BP 104 / 72; Pulse 78; Resp 18; Pulse Ox 98% ; ea 06/25 21:35 Body Mass Index 22.05 (65.77 kg, 172.72 cm) ca1 ED Course: 06/25 21:18 Patient arrived in ED. am2 21:39 Triage completed. ca1 21:39 Arm band placed on right wrist. ca1 06/26 00:16 Patel Marquez MD is Attending Physician. 7 00:51 Virgie Carrera, ABI is Primary Nurse. ea 00:51 Patient has correct armband on for positive identification. Bed in low position. Call ea light in reach. athletic monitor on. Pulse ox on. NIBP on. 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 ea 01:56 CT Abd/Pelvis - IV Contrast Only In Process Unspecified. EDMS 03:26 Tk Coppola MD is Referral Physician. [facility] 03:37 IV discontinued, intact, bleeding controlled, No redness/swelling at site. Pressure ea dressing applied. Administered Medications: 01:12 Drug: NS 0.9% 1000 ml Route: IV; Rate: 1000 ml; Site: right antecubital; ea 02:30 Follow up: Response: No adverse reaction; IV Status: Completed infusion; IV Intake: ea 1000ml 02:55 Drug: Magnesium Citrate Liquid 150 ml Route: PO; rr5 03:20 Follow up: Response: No adverse reaction ea Intake: 02:30 IV: 1000ml; Total: 1000ml. ea Outcome: 03:29 Discharge ordered by . 7 03:32 Condition: stable ea 03:37 Discharged to Facility staff outside to pick pt up ea 03:37 Discharge instructions given to patient, Instructed on discharge instructions, follow up and referral plans. medication usage, Demonstrated understanding of instructions, follow-up care, medications, Prescriptions given X 3. 03:37 Patient left the ED. ea Signatures: Dispatcher [employer] EDMS Kaitlin Pimentel Elena RN RN David Levine RN RN rr5 Vicky Lara RN RN Patel Heaton MD MD 7
[2020-06-26 03:52] VITALS: TEMP 97.6
[2020-06-26 03:53] VITALS: O2SAT 98
[2020-06-26 03:54] VITALS: BP 104/72
--- NOTE | 2020-06-27 11:30 | RAD REPORT ---
EXAM DESCRIPTION: CT ABDOMEN AND PELVIS WITH CONTRAST CLINICAL HISTORY: ABD PAIN COMPARISON: None Available. TECHNIQUE: CT of the abdomen and pelvis performed following IV administration of iodinated contras t. Most superior aspect of liver cut off on both sequences. FINDINGS: Lung Bases: The visualized lung bases are clear. Bones: No destructive bone lesions identified. Abdomen: Liver: The liver has normal size and density. No intrahepatic biliary dilatation. Gallbladder: No calcified gallstones. Spleen, Pancreas, and Adrenal Glands: The spleen, pancreas, and adrenal glands are unremarkable. Kidneys: No hydronephrosis or obstructing calculus. Vasculature: The aorta and IVC have normal caliber and position. The portal vein is patent. The pro ximal visceral and renal arteries are patent. Stomach: The stomach and duodenum have normal course. Other: No free intraperitoneal air. No free fluid or lymphadenopathy. Pelvis: Bladder: Urinary bladder is unremarkable. Bowel: No dilated loops of large or small bowel. Large amount of stool. Appendix: Normal appendix. Pelvis: Uterus not enlarged. IMPRESSION: 1. No acute inflammatory or obstructive process identified. 2. Large amount of stool. This exam was performed according to our departmental dose-optimization program, which includes autom ated exposure control, adjustment of the mA and/or kV according to patient size and/or use of iterati ve reconstruction technique. Electronically signed by: Abner Muhammad 06/26/2020 2:18 AM VIDEO SYSTEMS ENGINEER Due to temporary technical issues with the PACS/Fluency reporting system, reports are being signed by the in house radiologist without review as a courtesy to ensure prompt reporting. The interpreting r adiologist is fully responsible for the content of the report.
== END 2020-06-26 03:37 | disposition home or self-care (01) ==
LOC: ER 21:14
DX: K59.00 Constipation, unspecified (principal); Z88.8 Allergy status to other drugs, medicaments and biological substances
CPT/HCPCS: 36415; 74177; 80048; 80076; 81003; 81025; 83690; 85025; 85610; 85730; 96360; 99284; J7030; Q9967